=== PATIENT | female | born 1960 | race Caucasian/White ===

== ENCOUNTER 2023-05-09 13:27 | Emergency (ER) | payer OTHER, SELFPAY ==
[2023-05-09 13:31] VITALS: BP 131/72; PULSE 83; RESP 16; TEMP 37; O2SAT 96; BMI 23.0
--- NOTE | 2023-05-09 13:43 | XR_ITS ---
The [address] [address] Patient Name: BARRIE LAWSON MRN: [id number] date: 1960 Sex: F Assigned Patient Location: ER Current Patient Location: ER Accession/Order Number: [id number] Exam Date: 05/09/2023 13:55 Report Date: 05/09/2023 14:17 At the request of: AUTUMN DENTON Procedure: XR knee CHARISSE 4V EXAM: XR knee CHARISSE 4V HISTORY: pain anterior knees patient fell recently COMPARISON: None TECHNIQUE: 4 views of the right knee were obtained. FINDINGS: No definite acute fracture or dislocation. Mild posterior patellar spurring. No evidence of sizable suprapatellar joint effusion. Soft tissues are grossly within normal limits. 4 views of the left knee were obtained. No definite acute fracture or dislocation. Mild posterior patellar spurring. Small calcifications noted posteriorly at the level of the joint space likely degenerative or vascular nature. No evidence of sizable suprapatellar joint effusion. Soft tissues are grossly within normal limits. XR/XR knee CHARISSE 4V IMPRESSION: Bilateral knee study demonstrates mild degenerative changes as described. Follow-up as needed. Electronically authenticated by: PRUDENCIO CRUZ Date: 05/09/2023 14:17
[2023-05-09 13:47] VITALS: O2SAT 98
--- NOTE | 2023-05-09 13:47 | ED_ITS ---
Documented by User: JROGE Winkler 05/09/23 14:28 HPI - Extremity Injury (Lower) General Chief Complaint: Extremity Injury, Lower Stated Complaint: LOWER EXTREMITY INJURY KNEES Time Seen by Provider: 05/09/23 13:28 Source: patient Mode of arrival: walk-in Limitations: no limitations History of Present Illness HPI Narrative: patient is a 63-year-old female unsure of last tetanus presents to the Emergency Room with concerns of bilateral anterior knee pain. Patient walking yesterday tripped near a curb striking both knees, slight twisting. 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 Patient notes pain with ambulation but tolerable. Patient denies any head or neck injury, denies pain to her feet or ankles. Place: Reports street/outdoors Severity: moderate Relieving factors: Reports cold therapy Exacerbating factors: Reports weight bearing and movement Context: Reports fall and direct blow Associated symptoms: Reports swelling; Denies numbness or tingling Treatments prior to arrival: Reports cold therapy Related Data Home Medications Medication Instructions Recorded Confirmed valsartan 40 mg tablet 40 mg PO DAILY 05/09/23 05/09/23 Allergies Allergy/AdvReac Type Severity Reaction Status Date / Time carvedilol [From Coreg] Allergy Severe Congested Verified 05/09/23 13:35 Review of Systems ROS Constitutional Denies: fever or chills Eyes Denies: change in vision Ears, nose, mouth, and throat Denies: throat pain Cardiovascular Denies: chest pain Respiratory Denies: shortness of breath Gastrointestinal Denies: abdominal pain or nausea Musculoskeletal Denies: neck pain Integumentary/Breast Denies: rash Neurological Denies: headache PFSH PFSH Social History Smoking status: Heavy tobacco smoker Exam Narrative Exam Narrative: Vital signs reviewed and nurse's notes. The patient is not hypoxic. General: Alert, no acute distress, patient resting comfortably Skin: warm, intact, no pallor noted, quarter size abrasion left anterior knee just below the patella. No active bleeding Head: Normocephalic, atraumatic Eye: Normal conjunctiva, no exudates Respiratory: No acute distress, lungs CTA Musculoskeletal: No evidence of deformity to the right or left knee. There is mild symmetric anterior swelling. point tender right knee medial femoral condyle, no evidence of prepatellar bursitis.There is no ecchymosis. No erythema or warmth noted. DP and PT pulses are intact 2+. Normal sensation, normal capillary refill less than 2 seconds. There is no cyanosis or mottling noted. The patient has tenderness to anterior medial aspect right knee.localized prepatellar tenderness left knee. The patient has no laxity with varus or valgus stressing. The patient has negative anterior drawer and Francia testing. The patient was able to flex and extend although with pain. Patient was able to extend leg off the cart without difficulty. No tenderness noted to the 5th MT, midfoot, ankle or proximal fibular area. There is no pain with calcaneal squeeze, achilles tendon is intact and no defect is palpated. The patient has no pelvic instability. The patient has no shortening or rotation noted to the bilateral lower extremities. Neurological: alert and orient x4, normal sensory and motor observed. Psychiatric: Cooperative Constitutional Vital Signs, click to edit/add: Last Vital Signs Temp 98.6 F 05/09/23 13:31 Pulse 83 05/09/23 13:31 Resp 16 05/09/23 13:31 BP 131/72 05/09/23 13:31 Pulse Ox 98 05/09/23 13:47 O2 Del Method Room Air 05/09/23 13:47 Course Vital Signs Vital signs: Vital Signs Temperature 98.6 F 05/09/23 13:31 Pulse Rate 83 05/09/23 13:31 Respiratory Rate 16 05/09/23 13:31 Blood Pressure 131/72 05/09/23 13:31 Pulse Oximetry 96 05/09/23 13:31 Temperature 98.6 F 05/09/23 13:31 Pulse Rate 83 05/09/23 13:31 Respiratory Rate 16 05/09/23 13:31 Blood Pressure 131/72 05/09/23 13:31 Pulse Oximetry 98 05/09/23 13:47 Oxygen Delivery Method Room Air 05/09/23 13:47 MDM - Extremity Injury (Lower) MDM Narrative Medical decision making narrative: tetanus updated, bacitracin applied to left knee abrasion. Patient likely bone contusion, x-rays performed to rule out fracture given mechanism of injury. No significant joint effusion and internal derangement not suspected. Discussed need to follow-up with orthopedics if symptoms do not improve.given patient's requirement to stand, we will give her 2-3 days off work to allow for ice and elevation.recommended good soap and water for abrasion, topical bacitracin pending scab formation The patient is to followup with primary care physician/ ortho in next 2-3 days or to return to the emergency department should any of the signs or symptoms worsen or new symptoms develop. Patient had questions answered. The patient agrees with the following Diagnosis and Treatment plan and the patient will be discharged home. Imaging Data knee xray bilateral: Radiologist's impression: AUTUMN DENTON Procedure: XR knee CHARISSE 4V EXAM: XR knee CHARISSE 4V HISTORY: pain anterior knees patient fell recently COMPARISON: None TECHNIQUE: 4 views of the right knee were obtained. FINDINGS: No definite acute fracture or dislocation. Mild posterior patellar spurring. No evidence of sizable suprapatellar joint effusion. Soft tissues are grossly within normal limits. 4 views of the left knee were obtained. No definite acute fracture or dislocation. Mild posterior patellar spurring. Small calcifications noted posteriorly at the level of the joint space likely degenerative or vascular nature. No evidence of sizable suprapatellar joint effusion. Soft tissues are grossly within normal limits. IMPRESSION: Bilateral knee study demonstrates mild degenerative changes as described. Follow-up as needed. Electronically authenticated by: PRUDENCIO CRUZ Date: 05/09/2023 14:17 Discharge Plan Discharge Chief Complaint: Extremity Injury, Lower Clinical Impression: Contusion of knee, left, Contusion of knee, right, Abrasion of knee, left Patient Disposition: Home, Self-Care Time of Disposition Decision: 13:53 Condition: Good Prescriptions / Home Meds: No Action valsartan 40 mg tablet 40 mg PO DAILY Instructions: Contusion in Adults (ED), Abrasion (ED) Stand Alone Forms: Portal Instructions Referrals: BRENDA GARIBAY MD [Primary Care Provider] - 1 week Darius Gregory MD [Physician] - 1 week Discharge Date/Time: 05/09/23 14:32 Documented by User: Nilson Parikh MD 05/09/23 15:27 HPI - Extremity Injury (Lower) General Chief Complaint: Extremity Injury, Lower Stated Complaint: LOWER EXTREMITY INJURY KNEES Time Seen by Provider: 05/09/23 13:28 Related Data Home Medications Medication Instructions Recorded Confirmed valsartan 40 mg tablet 40 mg PO DAILY 05/09/23 05/09/23 Allergies Allergy/AdvReac Type Severity Reaction Status Date / Time carvedilol [From Coreg] Allergy Severe Congested Verified 05/09/23 13:35 PFSH PFSH Social History Smoking status: Heavy tobacco smoker Exam Constitutional Vital Signs, click to edit/add: Last Vital Signs Temp 98.6 F 05/09/23 13:31 Pulse 83 05/09/23 13:31 Resp 16 05/09/23 13:31 BP 131/72 05/09/23 13:31 Pulse Ox 98 05/09/23 13:47 O2 Del Method Room Air 05/09/23 13:47 Course Vital Signs Vital signs: Vital Signs Temperature 98.6 F 05/09/23 13:31 Pulse Rate 83 05/09/23 13:31 Respiratory Rate 16 05/09/23 13:31 Blood Pressure 131/72 05/09/23 13:31 Pulse Oximetry 96 05/09/23 13:31 Temperature 98.6 F 05/09/23 13:31 Pulse Rate 83 05/09/23 13:31 Respiratory Rate 16 05/09/23 13:31 Blood Pressure 131/72 05/09/23 13:31 Pulse Oximetry 98 05/09/23 13:47 Oxygen Delivery Method Room Air 05/09/23 13:47 MDM - Extremity Injury (Lower) MDM Narrative Medical decision making narrative: tetanus updated, bacitracin applied to left knee abrasion. Patient likely bone contusion, x-rays performed to rule out fracture given mechanism of injury. No significant joint effusion and internal derangement not suspected. Discussed need to follow-up with orthopedics if symptoms do not improve.given patient's requirement to stand, we will give her 2-3 days off work to allow for ice and elevation.recommended good soap and water for abrasion, topical bacitracin pending scab formation The patient is to followup with primary care physician/ ortho in next 2-3 days or to return to the emergency department should any of the signs or symptoms worsen or new symptoms develop. Patient had questions answered. The patient agrees with the following Diagnosis and Treatment plan and the patient will be discharged home. I, Dr Parikh, have reviewed the above progress note and course of action in the ER; agree with the above. I have personally seen and evaluated this patient, gone over history and physical, and discussed disposition and treatment plan with the patient. Discharge Plan Discharge Chief Complaint: Extremity Injury, Lower Clinical Impression: Contusion of knee, left, Contusion of knee, right, Abrasion of knee, left Patient Disposition: Home, Self-Care Time of Disposition Decision: 13:53 Condition: Good Prescriptions / Home Meds: No Action valsartan 40 mg tablet 40 mg PO DAILY Instructions: Contusion in Adults (ED), Abrasion (ED) Stand Alone Forms: Portal Instructions Referrals: BRENDA GARIBAY MD [Primary Care Provider] - 1 week Darius Gregory MD [Physician] - 1 week Discharge Date/Time: 05/09/23 14:32
[2023-05-09] MEDS: ADACEL DIPH,PERTUSS(ACELL),TET VAC/PF 0.5 ML ADULT SYRINGE IM (14:06)
[2023-05-09] MEDS: BACITRACIN OINTMENT 28.4 GM TUBE 1 APPLIC TOPICAL (14:06)
== END 2023-05-09 14:32 | disposition home or self-care (01) ==
PROVIDERS: Emergency Provider Emergency Medicine; PCP Internal Medicine
DX: S80.02XA Contusion of left knee, initial encounter (principal); S80.01XA Contusion of right knee, initial encounter; S80.212A Abrasion, left knee, initial encounter; W01.198A Fall on same level from slipping, tripping and stumbling with subsequent striking against other object, initial encounter; Z79.899 Other long term (current) drug therapy; F17.210 Nicotine dependence, cigarettes, uncomplicated; Z23 Encounter for immunization
CPT/HCPCS: 73564; 90471; 90715; 99284

== ENCOUNTER 2023-06-05 15:29 | Outpatient (OUT) | payer OTHER, SELFPAY ==
--- OUTSIDE RECORDS SUMMARY | 2023-06-05 15:34 | XMS_ITS | CCD ---
Author Name Unknown Address [address] [place] [address] Organization [facility] Care Team Providers Care Coconut Cooker Name Role Phone Pascual Garibay Jr. Primary Care Provider Jamila Acosta DO Unavailable [place], DR GUTIERREZ Admitting Unavailable VALONE, DR GUTIERREZ Attending Unavailable VALONE, DR GUTIERREZ Primary Care Unavailable VALONE, DR GUTIERREZ Consulting Unavailable WEST, DR LINDA Davis Consulting Unavailable Anderson, DR Mccoy Consulting Unavailable Pascual Garibay Jr. Primary Care Provider Jamila Acosta DO Unavailable Cody Reynaga MD Unavailable CODY REYNAGA Attending Unavailable PASCUAL GARIBAY JR Primary [facility] Unavail able KATHRYN MERCADO Attending Unavailable CODY REYNAGA Referring Unavailable PASCUAL GARIBAY JR [facility] Unavail able CODY REYNAGA Referring Unavailable PASCUAL GARIBAY JR Primary Care Unavail able CODY REYNAGA Referring Unavailable PASCUAL GARIBAY JR Primary [facility] Unavail able CODY REYNAGA Referring Unavailable PASCUAL GARIBAY JR Primary [facility] Unavail able PEDRO PABLO PARKER Referring Unavailable PASCUAL GARIBAY JR Primary Care Unavail able LETA MALAVE Attending Unavailable PASCUAL GARIBAY JR Primary Care Unavail able LETA MALAVE Attending Unavailable PASCUAL GARIBAY JR Primary [facility] Unavail able PEDRO PABLO PARKER Attending Unavailable PASCUAL GARIBAY JR Primary [facility] Unavail able PASCUAL GARIBAY JR Primary [facility] Unavail able LETA MALAVE Referring Unavailable Allergies Allergy Classification Reported Allergen(s) Allergy Type Date of Onset Reaction(s) Facility (10 sources) Cambodian cockroach allergenic extract; Translations: [KAZAKH COCKROACH ALLERGENIC EXTRACT] Drug Allergy 1 [facility] (10 sources) Cambodian elm pollen extract; Translations: [TREE POLLEN-KAZAKH ELM] Drug Allergy 1 Intolerance [facility] (10 sources) Apples; Translations: [APPLES] Food Allergy 1 [facility] (10 sources) burning peralta pollen extract; Translations: [WEED POLLEN-KOCHIA (FIREBUSH)] Drug Allergy 1 Intolerance [facility] (10 sources) Fish; Translations: [FISH CONTAINING PRODUCTS] Propensity to adverse reactions to drug 1 Other: See Comments [facility] (10 sources) House dust mite; Translations: [DUST MITES] Allergy to substance 1 [facility] (10 sources) Wheat preparation; Translations: [WHEAT] Drug Allergy 1 Other: See Comments [facility] (10 sources) Grass Pollen-[place] Blue, Standard; Translations: [GRASS POLLEN-[place] BLUE, STANDARD] Drug Allergy 1 Intolerance [facility] (10 sources) [place] Pollen-Western Ragweed; Translations: [WEED POLLEN-WESTERN RAGWEED] Drug Allergy 1 Other: See Comments [facility] Medications Current Medications Medication Drug Class(es) Dates Sig (Normalized) Sig (Original) pravastatin sodium 20 mg oral tablet (9 sources) HMG-CoA Reductase Inhibitor Start: 02-17-2023 End: 05-18-2023 take 2 tablets by mouth once daily at bedtime pravastatin (PRAVACHOL) 20 mg tablet Take 2 tablets by mouth daily at bedtime. 180 tablet 0 02/17/2023 05/18/2023 Active Start: 06-18-2020 End: 02-17-2023 pravastatin (PRAVACHOL) 20 m g tablet 20 mg daily at bedtime. 0 06/18/2020 02/17/2023 Discontinued Comment on above: 20 mg daily at bedti me. Take 2 tablets by mo uth daily at bedtime. Completed/Discontinued Medications Medication Drug Class(es) Dates Sig (Normalized) Sig (Original) ascorbic acid/collagen hydr (COLLAGEN PLUS VITAMIN C ORAL) (8 sources) ascorbic acid/collagen hydr (COLLAGEN PLUS VITAMIN C ORAL) once daily. 0 Active Comment on above: once daily. azelastine hydrochloride 0.137 mg/actuat metered dose nasal spray (8 sources) Histamine-1 Receptor Antagonist azelastine (ASTELIN) 0.1% nasal spray once daily. 0 Active Comment on above: once daily. 24 hr buPROPion hydrochloride 150 mg extended release oral tablet (2 sources) Aminoketone Start: 12-22-2022 End: 02-17-2023 buPROPion XL (WELLBUTRIN XL) 150 mg 24 hr tablet C,E,zinc,copper 11/uncqo1z/lut (OCUVITE ADULT 50 PLUS ORAL) (8 sources) C,E,zinc,copper 11/yqlcl0z/lut (OCUVITE ADULT 50 PLUS ORAL) once daily. 0 Active Comment on above: once daily. CALCIUM CITRATE-VITAMIN D3 ORAL (8 sources) CALCIUM CITRATE-VITAMIN D3 ORAL once daily. 0 Active Comment on above: once daily. chrom fadia/brindal abebe (GARCINIA CAMBOGIA ORAL) (3 sources) End: 02-17-2023 chrom fadia/brindal abebe (GARCINIA CAMBOGIA ORAL) Take by mouth once daily. 0 02/17/2023 Discontinued chrom fadia/brind al abebe (GARCINIA CAMBOGIA ORAL) Take by mouth once daily. 0 Active Comment on above: Take by mouth once d aily. empagliflozin 25 mg oral tablet (2 sources) Sodium-Glucose Cotransporter 2 Inhibitor Start: 09-27-19 End: 02-18-20 take 1 tablet by mouth once daily in the morning JARDIANCE 25 mg tablet Take 25 mg by mouth every morning. 0 09/26/2022 02/17/2023 Discontinued Comment on above: Take 25 mg by mouth every morning. famotidine 20 mg oral tablet (8 sources) Histamine-2 Receptor Antagonist take 1 tablet by mouth every twelve hours as needed famotidine (PEPCID) 20 mg tablet Take 20 mg by mouth twice daily as needed. 0 Active take 1 tablet by mouth once don y famotidine (PEPCID) 20 mg tablet Take 20 mg by mouth once daily. 0 Active Comment on above: Take 20 mg by mouth once daily. Take 20 mg by mouth twice daily as needed. fluconazole 100 mg oral tablet (2 sources) Azole Antifungal Start: 09-27-19 End: 02-18-20 take 1 tablet by mouth every week fluconazole (DIFLUCAN) 100 mg tablet Take 100 mg by mouth one time a week. 0 09/26/2022 02/17/2023 Discontinued Comment on above: Take 100 mg by mouth one time a week. fluticasone (8 sources) Corticosteroid FLUTICASONE PROPIONATE NASAL as needed. 0 Active Comment on above: as needed. ibuprofen 800 mg oral tablet (8 sources) Nonsteroidal Anti-inflammatory Drug take 1 tablet by mouth every eight hours as needed ibuprofen (MOTRIN) 800 mg tablet Take 800 mg by mouth three times daily as needed. 0 Active Comment on above: Take 800 mg by mouth three times daily as needed. krill oil (3 sources) End: 02-18-20 23 ebots-ufors-2-dha-ep a-lipids (KRILL OIL) 860-25-62-50 mg cap once daily. 0 02/17/2023 Discontinued klioh-ypbyc-0-dh s-yhr-lcsxhq (KRILL OIL) 998-61-33-50 mg cap once daily. 0 Active Comment on above: once daily. Multivitamin capsule (8 sources) take 1 capsule by mouth once daily Multivitamin capsule Take 1 capsule by mouth once daily. 0 Active Comment on above: Take 1 capsule by [facility] once daily. olopatadine 2 mg/ml ophthalmic solution (8 sources) Histamine-1 Receptor Inhibitor Start: 1 take 1 drop(s) into the eye(s) once daily Olopatadine 0.2 % drop Use 1 Drop in both eyes once daily. 0 06/21/2020 Active Start: 06-21-2020 Olopatadine 0. 2 % drop once daily. 0 06/21/2020 Active Comment on above: once daily. Use 1 Drop in both e yes once daily. ubiquinol (8 sources) COQ10, UBIQUINOL , ORAL once daily. 0 Active Comment on above: once daily. valsartan 40 mg oral tablet (7 sources) Angiotensin 2 Receptor Kellen Start: 2 End: 2 take 1 tablet by mouth once daily valsartan (DIOVAN) 40 mg tablet Take 1 tablet by mouth once daily. 90 tablet 3 01/04/2022 Active Comment on above: Take 1 tablet by [facility] once daily. vitamin e 268 mg oral capsule (3 sources) End: Vitamin E, dl, acetate, (VITAMIN E) 400 unit capsule once daily. 0 02/17/2023 Discontinued Vitamin E, dl, a cetate, (VITAMIN E) 400 unit capsule once daily. 0 Active Comment on above: once daily. Problems Active Problems Problem Classification Problem Date Documented Da te Episodic/Chronic Acquired foot deformities (1 source) Acquired right hallux valgus; Translations: [Hallux valgus (acquired), right foot] 03-03-2023 Chronic Aortic; peripheral; and visceral artery aneurysms (10 sources) Aneurysm of infrarenal abdominal aorta ; Translations: [Infrarenal abdominal aortic aneurysm (AAA) without rupture (HCC)] Onset: 12-30-2022 01-09-2023 Chronic Chronic obstructive pulmonary disease and bronchiectasis (1 source) Chronic obstructive lung disease; Translations: [Chronic obstructive pulmonary disease, unspecified] 02-17-2023 Chronic Congestive heart failure; nonhypertensive (8 sources) Chronic diastolic heart failure; Translations: [Chronic diastolic (congestive) heart failure] Onset: 07-25-2020 07-25-2020 Chronic Disorders of lipid metabolism (9 sources) Hyperlipidemia; Translations: [Other hyperlipidemia] Onset: 07-07-2020 07-07-2020 Chronic Essential hypertension (9 sources) Essential hypertension; Translations: [Essential (primary) hypertension] Onset: 07-07-2020 07-07-2020 Chronic Heart valve disorders (4 sources) Mitral valve disorder; Translations: [Rheumatic mitral valve disease, unspecified] Onset: 02-17-2023 01-09-2023 Chronic Joint disorders and dislocations; trauma-related (1 source) Dislocation of toe joint; Translations: [Unspecified dislocation of right toe(s), initial encounter] 03-03-2023 Episodic Other circulatory disease (1 source) Disorder of artery; Translations: [Disorder of arteries and arterioles, unspecified] 01-09-2023 Chronic Other circulatory disease (1 source) Disorder of arteries and arterioles, unspecified; Translations: [Disorder of artery or arteriole (HCC)] Onset: 02-17-2023 Chronic Other congenital anomalies (1 source) Porokeratosis; Translations: [Other specified congenital malformations of skin] 03-03-2023 Chronic Other congenital anomalies (1 source) Metatarsus adductus; Translations: [Congenital metatarsus adductus, unspecified foot] 03-03-2023 Chronic Other connective tissue disease (1 source) Plantar fascial fibromatosis; Translations: [Plantar fascial fibromatosis] 03-03-2023 Episodic Other screening for suspected conditions (not mental disorders or infectious disease) (4 sources) Encounter for screening mammogram for malignant neoplasm of breast; Translations: [ENC SCR MAMMO MALIG NEOPLASM BREAST] Onset: 01-21-2022 Episodic Residual codes; unclassified (1 source) Family history of malignant neoplasm of trachea, bronchus and lung; Translations: [FAM HX MALIG NEOPLSM TRACH BRON LNG] Onset: 01-22-2022 Episodic Residual codes; unclassified (1 source) Pain; Translations: [Pain, unspecified] 03-03-2023 Episodic Residual codes; unclassified (1 source) History of operative procedure on foot; Translations: [Other specified postprocedural states] 03-03-2023 Episodic Residual codes; unclassified (1 source) Ex-smoker for less than 1 year; Translations: [Other specified health status] 02-17-2023 Episodic Residual codes; unclassified (1 source) Pain, unspecified; Translations: [Pain] Onset: 03-03-2023 Episodic Substance-related disorders (2 sources) Nicotine dependence, cigarettes, uncomplicated; Translations: [Nicotine dependence] Onset: 01-22-2022 02-17-2023 Chronic Unclassified (1 source) Infrarenal abdominal aortic aneurysm (AAA) without rupture (HCC); Translations: [Infrarenal abdominal aortic aneurysm (AAA) without rupture (HCC)] Onset: 12-30-2022 Past or Other Problems Problem Classification Problem Date Documented Da te Episodic/Chronic Other infections; including parasitic (8 sources) Personal history of other infectious and parasitic diseases; Translations: [History of COVID-19] Onset: 11-14-2020 11-14-2020 Episodic Residual codes; unclassified (8 sources) Tobacco user; Translations: [Tobacco use] Onset: 07-07-2020 07-07-2020 Episodic Results Test Name Value Interpretation Reference Range Facility CTA ABD/PELV W IVCONon 04-03 CTA ABD/PELV W IVCON * * *Final Report* * * DATE OF EXAM: Apr 03 2023 11:31AM [facility] 0311 - CTA ABD/PELV W IVCON / PROCEDURE REASON: Encounter for other preprocedural examination * * * * Physician Interpretation * * * * EXAM: CT ANGIOGRAM OF THE CHEST, ABDOMEN AND PELVIS History: Preop for AAA Technique: Non-gated spiral imaging of the chest, abdomen, and pelvis following the IV administration of contrast material. A low-osmolar contrast agent was used (120 cc of Omnipaque 350). For optimization of anatomic evaluation, multiplanar reconstruction, maximum intensity projections, and advanced 3-D off-line postprocessing were performed on a dedicated stand-alone workstation with images sent to PACS. CT Dose-Length Product (DLP): 690.3 (accession [id number]), 690.30 (accession [id number]) mGycm CT Dose Reduction Employed: Automated exposure control Comparison: CT chest 02/17/2023 RESULT: Potential study limitations: None. VASCULAR FINDINGS CHEST: The main pulmonary artery is unremarkable. There is no significant or central pulmonary embolism noted. The ascending aorta is normal in caliber. There is again fusiform dilation of the descending thoracic aorta which measures up to 3.5 cm just proximal to the diaphragmatic hiatus. Mild predominantly noncalcified plaque throughout the thoracic aorta. There is no acute aortic pathology, such as dissection, intramural hematoma, or contained rupture. The arch vessel branching pattern is bovine. All of the arch branch vessels appear widely patent in their proximal portions. ABDOMEN AND PELVIS: There is an infrarenal AAA measuring 4.7 cm transverse diameter. The aneurysm measures about 8.2 cm craniocaudal dimension. The aneurysm begins about 1 cm above the lowest renal artery on the right and about 1.6 cm below the lowest renal artery on the left. Aneurysm sac contains circumferential mural thrombus measuring up to 1.3 cm in thickness. This mildly narrows the aortic lumen to 1.9 cm transverse diameter. The right common iliac measures 0.8 cm. The left common iliac measures 1.1 cm mildly ectatic. Bilateral internal iliac arteries are patent with mild atherosclerosis. The bilateral external iliac arteries are patent and normal in caliber measuring by 0.6 cm diameter bilaterally. There is mild atherosclerosis in the common femoral arteries which are normal in diameter. Celiac artery is patent. Superior mesenteric artery is patent. Inferior mesenteric artery is patent. There are two right renal arteries. Right renal arteries are patent. There are two left renal arteries. Left renal arteries are patent. NONVASCULAR FINDINGS CHEST: Lines, tubes, and devices: None. Lung parenchyma and airways: Moderate emphysema. Dependent atelectasis. A few tiny pulmonary nodules in the right middle lobe. Pleural space: No pleural effusion. Lower neck, lymph nodes, and mediastinum: The imaged thyroid gland is normal. No lymphadenopathy in the supraclavicular, axillary, mediastinal, or hilar regions. Heart size is within normal limits. Bones and soft tissues: No acute osseous findings. Degenerative changes. ABDOMEN AND PELVIS: Liver: No mass. Biliary: No bile duct dilation. Cholecystectomy. Spleen: No mass. No splenomegaly. Pancreas: No mass or duct dilation. Adrenals: No mass. Kidneys: No hydronephrosis. GI tract: No dilation or wall thickening. Lymph nodes: No abdominal or pelvic lymphadenopathy. Mesentery/Peritoneum: No ascites or mass. Retroperitoneum: No mass. Pelvis: No mass, ascites or fluid collection. Bones/Soft Tissues: No acute osseous findings. Degenerative changes. IMPRESSION: 4.7 cm AAA. Aneurysm sac involves the lowest renal artery on the right. Two renal arteries bilaterally. Contact Center Team Lead: PSCB Transcribe Date/Time: Apr 09 2023 2:22P Dictated by : NEIDA MCKEON MD This examination was interpreted and the report reviewed and electronically signed by: NEIDA MCKEON MD on Apr 09 2023 3:10PM EST [id number] N Normal [facility] CTA CHEST (NONGATED) W IVCON on 04-03-2023 CTA CHEST (NONGATED) W IVCON * * *Final Report* * * DATE OF EXAM: Apr 03 2023 11:31AM [facility] 0123 - CTA CHEST (NONGATED) W IVCON / PROCEDURE REASON: Encounter for other preprocedural examination * * * * Physician Interpretation * * * * EXAM: CT ANGIOGRAM OF THE CHEST, ABDOMEN AND PELVIS History: Preop for AAA Technique: Non-gated spiral imaging of the chest, abdomen, and pelvis following the IV administration of contrast material. A low-osmolar contrast agent was used (120 cc of Omnipaque 350). For optimization of anatomic evaluation, multiplanar reconstruction, maximum intensity projections, and advanced 3-D off-line postprocessing were performed on a dedicated stand-alone workstation with images sent to PACS. CT Dose-Length Product (DLP): 690.3 (accession [id number]), 690.30 (accession [id number]) mGycm CT Dose Reduction Employed: Automated exposure control Comparison: CT chest 02/17/2023 RESULT: Potential study limitations: None. VASCULAR FINDINGS CHEST: The main pulmonary artery is unremarkable. There is no significant or central pulmonary embolism noted. The ascending aorta is normal in caliber. There is again fusiform dilation of the descending thoracic aorta which measures up to 3.5 cm just proximal to the diaphragmatic hiatus. Mild predominantly noncalcified plaque throughout the thoracic aorta. There is no acute aortic pathology, such as dissection, intramural hematoma, or contained rupture. The arch vessel branching pattern is bovine. All of the arch branch vessels appear widely patent in their proximal portions. ABDOMEN AND PELVIS: There is an infrarenal AAA measuring 4.7 cm transverse diameter. The aneurysm measures about 8.2 cm craniocaudal dimension. The aneurysm begins about 1 cm above the lowest renal artery on the right and about 1.6 cm below the lowest renal artery on the left. Aneurysm sac contains circumferential mural thrombus measuring up to 1.3 cm in thickness. This mildly narrows the aortic lumen to 1.9 cm transverse diameter. The right common iliac measures 0.8 cm. The left common iliac measures 1.1 cm mildly ectatic. Bilateral internal iliac arteries are patent with mild atherosclerosis. The bilateral external iliac arteries are patent and normal in caliber measuring by 0.6 cm diameter bilaterally. There is mild atherosclerosis in the common femoral arteries which are normal in diameter. Celiac artery is patent. Superior mesenteric artery is patent. Inferior mesenteric artery is patent. There are two right renal arteries. Right renal arteries are patent. There are two left renal arteries. Left renal arteries are patent. NONVASCULAR FINDINGS CHEST: Lines, tubes, and devices: None. Lung parenchyma and airways: Moderate emphysema. Dependent atelectasis. A few tiny pulmonary nodules in the right middle lobe. Pleural space: No pleural effusion. Lower neck, lymph nodes, and mediastinum: The imaged thyroid gland is normal. No lymphadenopathy in the supraclavicular, axillary, mediastinal, or hilar regions. Heart size is within normal limits. Bones and soft tissues: No acute osseous findings. Degenerative changes. ABDOMEN AND PELVIS: Liver: No mass. Biliary: No bile duct dilation. Cholecystectomy. Spleen: No mass. No splenomegaly. Pancreas: No mass or duct dilation. Adrenals: No mass. Kidneys: No hydronephrosis. GI tract: No dilation or wall thickening. Lymph nodes: No abdominal or pelvic lymphadenopathy. Mesentery/Peritoneum: No ascites or mass. Retroperitoneum: No mass. Pelvis: No mass, ascites or fluid collection. Bones/Soft Tissues: No acute osseous findings. Degenerative changes. IMPRESSION: 4.7 cm AAA. Aneurysm sac involves the lowest renal artery on the right. Two renal arteries bilaterally. Contact Center Team Lead: PSCB Transcribe Date/Time: Apr 09 2023 2:22P Dictated by : NEIDA MCKEON MD This examination was interpreted and the report reviewed and electronically signed by: NEIDA MCKEON MD on Apr 09 2023 3:10PM EST [id number] N Normal [facility] CNOVon 03-27-2023 OV Office Visit ([facility] ) BARRIE LAWSON ([id number]) 1960 F Date Time Provider Department 03/27/23 10:15 AM LETA MALAVE [facility] During your visit today, we recorded the following information about you: Pulse Blood pressure 63/minute 149/90 Leta Malave MD 03/27/2023 12:07 PM Signed [facility] DEPARTMENT OF VASCULAR SURGERY OUTPATIENT VISIT TYPE CONSULTATION PRIMARY CARE PHYSICIAN: Pascual Garibay Jr, DO REFERRING PROVIDER: SELF Consult requested for an opinion regarding the evaluation and treatment of the above. My final impression and recommendations will be communicated back to the requesting physician by way of the shared medical record or letter via US mail. CHIEF COMPLAINT AAA HISTORY OF PRESENT ILLNESS: Barrie Lawson is a 62 year old female presenting with concern for an abdominal aortic aneurysm. Ms. Lawsno has known about the presence of an abdominal aortic aneurysm since last year when she had an ultrasound of the abdominal aorta that showed an aneurysm of approximately 4cm. We do not have that report readily available. She had a repeat ultrasound in 04/2022 which reported the followin.5cm x 3.8cm infrarenal aneurysm . She has not had any dedicated cross-sectional imaging of the abdominal aorta but had a chest CTA which showed no descending thoracic aorta but dilation of the aorta near the diaphragm of 3.5cm. She denies any symptoms associated with her aneurysm including abdominal pain, back pain, flank pain, or referred pain into her groin. She is a former smoker but currently vapes. She denies any claudication, rest pain, or tissue loss. She has no anginal symptoms with exertion and denies SOB while walking up 2 flights of stairs. Imaging studies: I have personally viewed the following images/data: 02/17/23: CTA Chest 3.5cm dilation of the descending thoracic aorta near the diaphragmatic hiatus Tobacco Use: .25 packs/day, for 42 years. Quit 11/23/2022. Types: Cigarettes PAST MEDICAL HISTORY Diagnosis Date AAA (abdominal aortic aneurysm) (HCC) Congestive heart failure (HCC) COPD (chronic obstructive pulmonary disease) (HCC) Diverticulosis Dyslipidemia 2019 Engages in vaping Family history of early CAD HTN (hypertension) 2019 PAST SURGICAL HISTORY Procedure Laterality Date APPENDECTOMY REMOVAL GALLBLADDER REMV CATARACT EXTRACAP,INSERT LENS Bilateral SURGERY ADD Right bunion on R foot TONSILLECTOMY HX TOTAL ABDOM HYSTERECTOMY partial FAMILY HISTORY Problem Relation Age of Onset Hypertension Mother Hyperlipidemia Mother other (kidney cancer) Mother Diabetes Mother other (Myocardial infarction) Mother Cancer Father lung No Known Problems Sister other (diverticulosis) Sister No Known Problems Sister No Known Problems Sister Systemic Lupus Erythematosus Sister Hypertension Brother Neuropathy Brother Hyperlipidemia Brother other (testicutlar cancer) Brother No Known Problems Brother Cancer Brother testicular cancer Social History Tobacco Use Smoking status: Former Packs/day: 0.25 Years: 42.00 Additional pack years: 0.00 Total pack years: 10.50 Types: Cigarettes Quit date: 11/2022 Years since quittin.3 Smokeless tobacco: Current Tobacco comments: currently vapes Vaping Use Vaping Use: current everyday user Substances: Nicotine Devices: Pre-filled or refillable cartridge, every 3 days Substance Use Topics Alcohol use: Not Currently Drug use: Never Current Outpatient Medications Medication Sig Dispense Refill pravastatin (PRAVACHOL) 20 mg tablet Take 2 tablets by mouth daily at bedtime. (Patient taking differently: Take 20 mg by mouth daily at bedtime.) 180 tablet 0 iv contrast (will be provided with radiology test) For CTA CHEST (NONGATED) W IVCON and CTA ABD/PEL W IVCON orders. No IV access, insert saline lock prior to the sedation, infusion, injection for imaging exam. Discontinue saline lock post exam. If Pt. has a central line or IVAD, may access for administration according to line specific nursing protocol. Once exam is complete flush line and de-access according to line specific nursing protocol in the CT contrast administration guidelines link. 1 Each 0 valsartan (DIOVAN) 40 mg tablet Take 1 tablet by mouth once daily. 90 tablet 3 azelastine (ASTELIN) 0.1% nasal spray once daily. ascorbic acid/collagen hydr (COLLAGEN PLUS VITAMIN C ORAL) once daily. C,E,zinc,copper 11/nzbua5l/lut (OCUVITE ADULT 50 PLUS ORAL) once daily. CALCIUM CITRATE-VITAMIN D3 ORAL once daily. FLUTICASONE PROPIONATE NASAL as needed. Olopatadine 0.2 % drop Use 1 Drop in both eyes once daily. COQ10, UBIQUINOL, ORAL once daily. Multivitamin capsule Take 1 capsule by mouth once daily. famotidine (PEPCID) 20 mg tablet Take 20 mg by mouth twice daily as needed. ibuprofen (MO (more content not included)... [facility] Jacklyn 03-26-2023 CNPN Telephone ([facility]) BARRIE LAWSON ([id number]) 1960 F Date Time Provider Department 03/26/23 LETA MALAVE [facility] During your visit today, we recorded the following information about you: Rebecca Reed 03/26/2023 1:56 PM Signed Left message [phone] to reschedule appointment with Dr. Malave on 03/27/23. Allergies As of Date: 03/26/2023 Noted Allergy Reaction KAZAKH COCKROACH ALLERGENIC EXT*07/07/2020 4 - Hives APPLES 07/07/2020 4 - Hives DUST MITES 07/07/2020 4 - Hives FISH CONTAINING PRODUCTS 07/07/2020 14 - Other: See Comments Comments: Allergy to Cod/flounder/halibut GRASS POLLEN-RHONDA BLUE, STAND*07/07/2020 5 - Intolerance TREE POLLEN-KAZAKH ELM 07/07/2020 5 - Intolerance WEED POLLEN-KOCHIA (FIREBUSH) 07/07/2020 5 - Intolerance WEED POLLEN-WESTERN RAGWEED 07/07/2020 14 - Other: See Comments WHEAT 07/07/2020 14 - Other: See Comments Comments: Wheat Pollen And Whole Grain Date Reviewed: 03/03/2023 Reviewed by: Pedro Pablo Parker DPM - Fully Assessed Prescriptions as of 03/26/2023 - pravastatin (PRAVACHOL) 20 mg tablet Take 2 tablets by mouth daily at bedtime. - valsartan (DIOVAN) 40 mg tablet Take 1 tablet by mouth once daily. - azelastine (ASTELIN) 0.1% nasal spray once daily. - ascorbic acid/collagen hydr (COLLAGEN PLUS VITAMIN C ORAL) once daily. - C,E,zinc,copper 11/hyasp8j/lut (OCUVITE ADULT 50 PLUS ORAL) once daily. - CALCIUM CITRATE-VITAMIN D3 ORAL once daily. - FLUTICASONE PROPIONATE NASAL as needed. - Olopatadine 0.2 % drop Use 1 Drop in both eyes once daily. - COQ10, UBIQUINOL, ORAL once daily. - Multivitamin capsule Take 1 capsule by mouth once daily. - famotidine (PEPCID) 20 mg tablet Take 20 mg by mouth twice daily as needed. - ibuprofen (MOTRIN) 800 mg tablet Take 800 mg by mouth three times daily as needed. Problem List As Of Date 03/26/2023 Noted Resolved Essential hypertension [I10] 07/07/2020 Tobacco abuse [Z72.0] 07/07/2020 Other hyperlipidemia [E78.49] 07/07/2020 Chronic diastolic heart failure (HCC) [I50.32] 07/25/2020 History of COVID-19 [Z86.16] 11/14/2020 Infrarenal abdominal aortic aneurysm (AAA) with*12/30/2022 Encounter Status:Closed by [facility]BE[facility] 03[facility] BARRIE LAWSON ([id number]) 1960 F Date Time Provider Department 03/06/23 PEDRO PABLO PARKER [facility] During your visit today, we recorded the following information about you: Zane Gamez RN 03/06/2023 12:07 PM Signed Spoke to patient spouse regarding surgical scheduling for 1st MPJ arthrodesis surgery. Patient currently being worked up by vascular for AAA and will call back once cleared for foot surgery. All questions answered. Zane Gamez RN Allergies As of Date: 03/06/2023 Noted Allergy Reaction KAZAKH COCKROACH ALLERGENIC EXT*07/07/2020 4 - Hives APPLES 07/07/2020 4 - Hives DUST MITES 07/07/2020 4 - Hives FISH CONTAINING PRODUCTS 07/07/2020 14 - Other: See Comments Comments: Allergy to Cod/flounder/halibut GRASS POLLEN-RHONDA MOBLEY, STAND*07/07/2020 5 - Intolerance TREE POLLEN-KAZAKH ELM 07/07/2020 5 - Intolerance WEED POLLEN-KOCHIA (FIREBUSH) 07/07/2020 5 - Intolerance WEED POLLEN-WESTERN RAGWEED 07/07/2020 14 - Other: See Comments WHEAT 07/07/2020 14 - Other: See Comments Comments: Wheat Pollen And Whole Grain Date Reviewed: 03/03/2023 Reviewed by: Pedro Pablo Parker DPM - Fully Assessed Prescriptions as of 03/06/2023 - ascorbic acid/collagen hydr (COLLAGEN PLUS VITAMIN C ORAL) once daily. - azelastine (ASTELIN) 0.1% nasal spray once daily. - C,E,zinc,copper 11/mgoup3c/lut (OCUVITE ADULT 50 PLUS ORAL) once daily. - CALCIUM CITRATE-VITAMIN D3 ORAL once daily. - COQ10, UBIQUINOL, ORAL once daily. - famotidine (PEPCID) 20 mg tablet Take 20 mg by mouth twice daily as needed. - FLUTICASONE PROPIONATE NASAL as needed. - ibuprofen (MOTRIN) 800 mg tablet Take 800 mg by mouth three times daily as needed. - Multivitamin capsule Take 1 capsule by mouth once daily. - Olopatadine 0.2 % drop Use 1 Drop in both eyes once daily. - pravastatin (PRAVACHOL) 20 mg tablet Take 2 tablets by mouth daily at bedtime. - valsartan (DIOVAN) 40 mg tablet Take 1 tablet by mouth once daily. Problem List As Of Date 03/06/2023 Noted Resolved Essential hypertension [I10] 07/07/2020 Tobacco abuse [Z72.0] 07/07/2020 Other hyperlipidemia [E78.49] 07/07/2020 Chronic diastolic heart failure (HCC) [I50.32] 07/25/2020 History of COVID-19 [Z86.16] 11/14/2020 Infrarenal abdominal aortic aneurysm (AAA) with*12/30/2022 Encounter Status:Closed by ZANE GAMEZ on 03/06/23 [facility] CNOVon 03-03-2023 CNOV Office Visit (PODIMN ) BARRIE LAWSON ([id number]) 1960 F Date Time Provider Department 03/03/23 1:30 PM PEDRO PABLO PARKER During your visit today, we recorded the following information about you: Pedro Pablo Parker DPM 03/03/2023 5:51 PM Signed SERVICE DATE: March 03, 2023 PCP: Pascual Garibay Jr, DO Subjective Patient ID: Barrie is a 62 year old female. Chief Complaint: Patient presents with: Left Foot - New: Arch radiates to dorsal foot. Patient states mass at arch Right Foot - New, Pain: Right bunion pain with corn to bunion H/o right foot surgery x 2 in 90's Corns Pain Bunion PAIN EVALUATION 03/03/2023 1405 Pain Level: 5 Pain Location: Foot-Left Description: Aching Duration Amount of Time: 5 Duration Units: Years Frequency: Intermittent Comments: hx of inserts and right foot surgery in 's HPI Review of Systems Constitutional: Negative for fever. HENT: Negative for congestion. Respiratory: Negative for cough and shortness of breath. Cardiovascular: Negative for chest pain. Gastrointestinal: Negative for abdominal pain. Endocrine: Negative for diabetic associated symptoms. Skin: Negative for color change, pallor and rash. Neurological: Positive for numbness. Intermittent tingling to feet Hematological: Negative for blood/clotting disorder. Does not bruise/bleed easily. Musculoskeletal: Negative for joint swelling. ACTIVE PROBLEM LIST Essential Hypertension Tobacco Abuse Other Hyperlipidemia Chronic Diastolic Heart Failure (Hcc) History of Covid-19 Infrarenal Abdominal Aortic Aneurysm (Aaa) Without Rupture (Hcc) PAST MEDICAL HISTORY Diagnosis Date AAA (abdominal aortic aneurysm) (HCC) Congestive heart failure (HCC) COPD (chronic obstructive pulmonary disease) (HCC) Diverticulosis Dyslipidemia 2020 Engages in vaping Family history of early CAD HTN (hypertension) 2020 PAST SURGICAL HISTORY Procedure Laterality Date APPENDECTOMY REMOVAL GALLBLADDER REMV CATARACT EXTRACAP,INSERT LENS Bilateral SURGERY ADD Right bunion on R foot TONSILLECTOMY HX TOTAL ABDOM HYSTERECTOMY partial FAMILY HISTORY Problem Relation Age of Onset Hypertension Mother Hyperlipidemia Mother other (kidney cancer) Mother Diabetes Mother other (Myocardial infarction) Mother Cancer Father lung No Known Problems Sister other (diverticulosis) Sister No Known Problems Sister No Known Problems Sister Systemic Lupus Erythematosus Sister Hypertension Brother Neuropathy Brother Hyperlipidemia Brother other (testicutlar cancer) Brother No Known Problems Brother Cancer Brother testicular cancer Social History Tobacco Use Smoking status: Former Packs/day: 0.25 Years: 42.00 Additional pack years: 0.00 Total pack years: 10.50 Types: Cigarettes Quit date: 11/2022 Years since quittin.2 Smokeless tobacco: Current Tobacco comments: currently vapes Vaping Use Vaping Use: current everyday user Substances: Nicotine Devices: Pre-filled or refillable cartridge, every 3 days Substance Use Topics Alcohol use: Not Currently Drug use: Never ALLERGIES Allergen Reactions Cambodian Cockroach * Hives Apples Hives Dust Mites Hives Fish Containing Pro* Other: See Comments Allergy to Cod/flounder/halibut Grass Pollen-Kentuc* Intolerance Tree Pollen-Edwar* Intolerance [place] Pollen-Kochia * Intolerance [place] Pollen-Western* Other: See Comments Wheat Other: See Comments Wheat Pollen And Whole Grain MEDICATIONS: pravastatin (PRAVACHOL) 20 mg tablet Take 2 tablets by mouth daily at bedtime. valsartan (DIOVAN) 40 mg tablet Take 1 tablet by mouth once daily. azelastine (ASTELIN) 0.1% nasal spray once daily. ascorbic acid/collagen hydr (COLLAGEN PLUS VITAMIN C ORAL) once daily. C,E,zinc,copper 11/bzzjy0x/lut (OCUVITE ADULT 50 PLUS ORAL) once daily. CALCIUM CITRATE-VITAMIN D3 ORAL once daily. FLUTICASONE PROPIONATE NASAL as needed. Olopatadine 0.2 % drop Use 1 Drop in both eyes once daily. COQ10, UBIQUINOL, ORAL once daily. Multivitamin capsule Take 1 capsule by mouth once daily. famotidine (PEPCID) 20 mg tablet Take 20 mg by mouth twice daily as needed. ibuprofen (MOTRIN) 800 mg tablet Take 800 mg by mouth three times daily as needed. Allergies, medications, past surgical history, family history and past medical history were reviewed per this encounter. Physical Exam: There were no vitals taken for this visit. Patient is alert and oriented x 3 in NAD Patient's general mood is good. Eyes are without evidence of conjunctivitis or jaundice Respiration is normal and non-labored. Patient ambulated into the office treatment room. Vascular: Palpable Dorsalis Pedis and Posterior Tibial Pulses b/l Skin temperature warm to warm tibial tuberosity to the digits Neurological: Intact light touch/epicritic s (more content not included)... [facility] XR FOOT 3V AP/LAT/OBL BILon 03-03-2023 XR FOOT 3V AP/LAT/OBL CHARISSE * * *Final Report* * * DATE OF EXAM: Mar 03 2023 1:16PM AOX 5555 - XR FOOT 3V AP/LAT/OBL CHARISSE / PROCEDURE REASON: Pain * * * * Physician Interpretation * * * * HISTORY: Pain TECHNOLOGIST PROVIDED HISTORY (if applicable): bilateral foot pain. right big toe pain, left hindfoot pain TECHNIQUE: XR FOOT 3V AP/LAT/OBL CHARISSE RESULT: Bilateral three-view feet. RIGHT: Osteopenia and flexion deformities limit assessment.. Forefoot supination with hallux valgus. Flattening of the medial hallux metatarsal head is smoothly corticated and suggestive of prior bunionectomy. There is a question of lucency in the proximal phalanx throughout much of the shaft. This could represent prominent subchondral cysts/intraosseous ganglion but could also be related to postoperative change as may be seen after Silastic arthroplasty or from remote fracture deformity. Second and third hammertoes are present with mild degenerative changes at the interphalangeal joints. Additional degenerative changes are present in the midfoot particularly the fourth tarsometatarsal joint. Mature ossification at the peroneal tubercle consistent with a remote fracture without osseous union. No acute fracture is suspected. LEFT: Hallux valgus with bunion with contour deformity consistent with chronic erosion. No adjacent soft tissue swelling or calcification. Lateral subluxation of the sesamoids and mild degenerative changes at the metatarsophalangeal joint. Small dorsal midfoot osteophytes. Other joint spaces are preserved. Small plantar spur. IMPRESSION: LIMITED ASSESSMENT PARTICULARLY OF THE RIGHT GREAT TOE WITH NONSPECIFIC FINDINGS ABOVE. NO DEFINITE ACUTE FINDINGS. POSTOPERATIVE AND DEGENERATIVE CHANGES. CHRONIC EROSION OF THE LEFT BUNION LIKELY EITHER FROM AN ADJACENT GANGLION OR REMOTE GOUT. [facility] Transcribe Date/Time: Mar 03 2023 2:07P Dictated by : TASHA STATON MD This examination was interpreted and the report reviewed and electronically signed by: TASHA STATON MD on Mar 03 2023 2:12PM EST [id number] [facility] XR FOOT GENERAL 3V AP/LAT/OB L BILATERALon 03-03-2023 [facility] CNOVon 02-17-2023 CNOV Office Visit ([facility] ) BARRIE LAWSON ([id number]) 1960 F Date Time Provider Department 02/17/23 2:15 PM CODY REYNAGA TOHSMN During your visit today, we recorded the following information about you: Temperature Pulse Respiration Blood pressure 97.5 degrees 63/minute 14/minute 133/80 Weight Height 58.5 kg 1.6 m Cody Reynaga MD 02/24/2023 9:19 AM Signed [facility] DEPARTMENT OF CARDIAC SURGERY OUTPATIENT VISIT DATE OUTPATIENT VISIT PCP: Pascual Garibay Jr, DO ([facility]) [address] [address] Referring Physician: SELF Patient Type: New Visit to Determine Surgery: Yes HPI: Ms. Barrie Lawson is a 62 year old female seen regarding candidacy for cardiac surgery. She is currently asymptomatic Comorbidities include PAST MEDICAL HISTORY Diagnosis Date AAA (abdominal aortic aneurysm) (HCC) Congestive heart failure (HCC) COPD (chronic obstructive pulmonary disease) (HCC) Diverticulosis Dyslipidemia 2019 Engages in vaping Family history of early CAD HTN (hypertension) 2019 I have personally reviewed and analyzed all records that pertain to the patient's prior course in addition to the following studies: CT scan and TTE. Last CT Result Conclusion CTA CHEST (GATED) W IVCON Exam End: 02/17/2023 11:12 AM (Final result) Impression: IMPRESSION: 1. Dilation of the distal descending thoracic aorta just proximal to the diaphragmatic hiatus, measuring 3.5 cm in diameter. The remainder of the thoracic aorta is normal in course and caliber. 2. Moderate upper lobe predominant centrilobular and paraseptal emphysema. 3. Small (< 6 mm) pulmonary nodules as described. Incidental Finding: Follow-up Acuity: Incidental Finding: Solid: <6 mm (solitary or multiple) Routing Code: N/A Recommendation: No imaging follow-up is recommended Time Frame: N/A Comments: If there are risk factors for lung malignancy, a follow-up chest CT exam could be obtained in 12 months --END OF FINDING-- Contact Center Team Lead: [facility] Transcribe Date/Time: Feb 17 2023 11:35A Dictated by : JUNIOR URIBE MD This examination was interpreted and the report reviewed and electronically signed by: MOJGAN PUENTES MD on Feb 17 2023 2:38PM EST Last ECHO Result Conclusion ECHO Collected: 02/17/2023 9:18 AM (Final result) Impression: CONCLUSIONS: - Technically difficult exam due to body habitus. - Exam indication: AAA - The left ventricle is normal in size. Left ventricular systolic function is normal. EF = 56 ? 5% (2D biplane) Grade I left ventricular diastolic dysfunction. - The right ventricle is normal in size. Right ventricular systolic function is normal. - Exam was compared with the prior echocardiographic exam performed on 11/14/2020, similar findings. * * * Final * * * Impression: No evidence of thoracic aortic aneurysm disease Plan: Refer to Vascular Surgery to eval infra-renal aorta These findings will be communicated back to the requesting physician via electronic medical record Cody Reynaga MD Referring Provider: SELF [[id number]] Allergies As of Date: 02/17/2023 Noted Allergy Reaction KAZAKH COCKROACH ALLERGENIC EXT*07/07/2020 4 - Hives APPLES 07/07/2020 4 - Hives DUST MITES 07/07/2020 4 - Hives FISH CONTAINING PRODUCTS 07/07/2020 14 - Other: See Comments Comments: Allergy to Cod/flounder/halibut GRASS POLLEN-KENTULICESY BLUE, STAND*07/07/2020 5 - Intolerance TREE POLLEN-KAZAKH ELM 07/07/2020 5 - Intolerance WEED POLLEN-KOCHIA (FIREBUSH) 07/07/2020 5 - Intolerance WEED POLLEN-WESTERN RAGWEED 07/07/2020 14 - Other: See Comments WHEAT 07/07/2020 14 - Other: See Comments Comments: Wheat Pollen And Whole Grain Date Reviewed: 02/17/2023 Reviewed by: Chris Argueta MA - Fully Assessed Reason for Visit: Post-Op Visit [1236] Primary Visit Diagnosis:Infrarenal abdominal aortic aneurysm (AAA) without rupture (HCC) [I71.43] Order(s):CONSULT TO VASCULAR SURGERY [9042] Order #: [id number]: 1 FUTURE Prescriptions as of 02/24/2023 - pravastatin (PRAVACHOL) 20 mg tablet Take 2 tablets by mouth daily at bedtime. - valsartan (DIOVAN) 40 mg tablet Take 1 tablet by mouth once daily. - azelastine (ASTELIN) 0.1% nasal spray once daily. - ascorbic acid/collagen hydr (COLLAGEN PLUS VITAMIN C ORAL) once daily. - C,E,zinc,copper 11/sppze3c/lut (OCUVITE ADULT 50 PLUS ORAL) once daily. - CALCIUM CITRATE-VITAMIN D3 ORAL once daily. - FLUTICASONE PROPIONATE NASAL as needed. - Olopatadine 0.2 % drop Use 1 Drop in both eyes once daily. - COQ10, UBIQUINOL, ORAL once daily. - Multivitamin capsule Take 1 capsule by mouth once daily. - famotidine (PEPCID) 20 mg tablet Take 20 mg by mouth twice daily as needed. (more content not included)... [facility] CN Office Visit (CATHMN ) BARRIE LAWSON ([id number]) 1960 F Date Time Provider Department 02/17/23 12:00 PM KATHRYN MERCADO CATHOH During your visit today, we recorded the following information about you: Pulse Blood pressure Weight Height 66/minute 137/81 58.7 kg 1.613 m Kathryn Mercado MD 04/07/2023 9:31 AM Signed [facility] Department of Cardiovascular Medicine SECTION OF INTERVENTIONAL CARDIOLOGY OUTPATIENT VISIT DATE February 17 2023 OUTPATIENT VISIT TYPE NEW PRIMARY CARE PHYSICIAN: Pascual Garibay Jr, DO ([facility]) [address] [address] PRIMARY PAINTING INSTRUCTOR: Dr. Jamila Acosta REFERRING PHYSICIAN: Cody Reynaga [id number] [facility] [id number] CHIEF COMPLAINT: Abd aortic aneurysm HISTORY OF PRESENT ILLNESS: Ms. Lawson is a 62 year old female who presents today for pre-op assessment of desc thoracic and abd aortic aneurysm surgery. No history of coronary disease. Some chest pain in the past, though not typical of angina. FUENTES which has been stable - COPD and/or chronic diastolic heart failure. FUENTES class 2. No orthopnea or PND. NURSING INTAKE: Past medical history includes: AAA distal 4.5cm, COPD, chronic diastolic HF, past smoking, current vaping, HLD, Pt reports AAA has enlarged and comes for evaluation She reports chest pain in past but none recently, never had coronary angiogram this would be associated with palpiatoins which she reports she has not had in a while She notes SOB with 1 flight of stairs which is unchanged No orhtpnea, pND She notes slight LE edema She deneis synocpe, CVA or TIa She stopped smoking and she currently vapes 11/14/2020 TTE (syngo): CONCLUSIONS: - Exam indication: Re-evaluation of known Heart Failure with a change in clinical status with a clear precipitating change in med/diet - The left ventricle is normal in size. Left ventricular systolic function is normal. EF = 60 ? 5% (2D biplane) - The right ventricle is normal in size. Right ventricular systolic function is normal. - The patient has not had a prior CC echocardiographic exam for comparison. 05/21/2022 ABD US: 11/30/2022: LDL 90 HDL 38 TRIG 170 CHOL 157 02/17/23 Creat 0.90 GFR > 60 Diek Nutrition: None Weight: no change since last visit Exercise: Walks daily at work PAST MEDICAL HISTORY Diagnosis Date AAA (abdominal aortic aneurysm) (HCC) Congestive heart failure (HCC) Diverticulosis Dyslipidemia PAST SURGICAL HISTORY Procedure Laterality Date APPENDECTOMY REMOVAL GALLBLADDER REMV CATARACT EXTRACAP,INSERT LENS Bilateral SURGERY ADD Right bunion on R foot TONSILLECTOMY HX SOCIAL HISTORY Social History Tobacco Use Smoking status: Every Day Packs/day: 0.25 Years: 42.00 Additional pack years: 0.00 Total pack years: 10.50 Types: Cigarettes Smokeless tobacco: Current Tobacco comments: currently vapes Substance Use Topics Alcohol use: Not Currently Drug use: Never FAMILY HISTORY Problem Relation Age of Onset Hypertension Mother Hyperlipidemia Mother other (kidney cancer) Mother Cancer Father lung Hypertension Brother Neuropathy Brother No Known Problems Sister No Known Problems Brother Cancer Brother testicular cancer other (diverticulosis) Sister No Known Problems Sister No Known Problems Sister Systemic Lupus Erythematosus Sister ALLERGIES: ALLERGIES Allergen Reactions Cambodian Cockroach * Hives Apples Hives Dust Mites Hives Fish Containing Pro* Other: See Comments Allergy to Cod/flounder/halibut Grass Pollen-Kentuc* Intolerance Tree Pollen-Edwar* Intolerance [place] Pollen-Kochia * Intolerance [place] Pollen-Western* Other: See Comments Wheat Other: See Comments Wheat Pollen And Whole Grain MEDICATIONS: buPROPion XL (WELLBUTRIN XL) 150 mg 24 hr tablet JARDIANCE 25 mg tablet Take 25 mg by mouth every morning. fluconazole (DIFLUCAN) 100 mg tablet Take 100 mg by mouth one time a week. valsartan (DIOVAN) 40 mg tablet Take 1 tablet by mouth once daily. pravastatin (PRAVACHOL) 20 mg tablet 20 mg daily at bedtime. azelastine (ASTELIN) 0.1% nasal spray once daily. ascorbic acid/collagen hydr (COLLAGEN PLUS VITAMIN C ORAL) once daily. C,E,zinc,copper 11/tmiak0y/lut (OCUVITE ADULT 50 PLUS ORAL) once daily. CALCIUM CITRATE-VITAMIN D3 ORAL once daily. FLUTICASONE PROPIONATE NASAL as needed. rsumk-haxfk-2-dha-epa -lipids (KRILL OIL) 983-98-94-50 mg cap once daily. Olopatadine 0.2 % drop once daily. COQ10, UBIQUINOL, ORAL once daily. Vitamin E, dl, acetate, (VITAMIN E) 400 unit capsule once daily. chrom fadia/brindal abebe (GARCINIA CAMBOGIA ORAL) Take by mouth once daily. Multivitamin capsule Take 1 capsule by mouth once daily. famotidine (PEPCID) 20 mg tablet Take 20 mg (more content not included)... [facility] CREATININE Tony 02-17-2023 Creatinine [Mass/Vol] 0.78 mg/dL [facility] 0[facility]58-0.96 [facility] Comment on above: Order Comment: Speci men Type: BLOOD SPECIMENOrdering Facility: Address: [address] [place] [id number] Performed By: #### C RET1 ####[facility] LABCLIA [id number] [address] STATES OF [facility] Creatinine and Glomerular filtration rate.predicted panel (S/P/Bld) 86 mL/min/1.73m??? Normal >=60 [facility] Comment on above: Order Comment: Speci men Type: BLOOD SPECIMENOrdering Facility: Address: [address] [place] [address] Result Comment: Juanita mated Glomerular Filtration Rate (eGFR) is calculated using the 2020 CKD-EPI creatinine equation. This equation utilizes serum creatinine, sex, and age as parameters. The creatinine assay has traceable calibration to isotope dilution-mass spectrometry. Refer to KDIGO guidelines for clinical interpretation. In patients with unstable renal function, e.g. those with acute kidney injury, the eGFR may not accurately reflect actual GFR. Performed By: #### C RET1 ####[facility] LABCLIA [id number] [place] [address] [place] CTA CHEST (GATED) W IVCONon 02-17-2023 CTA CHEST (GATED) W IVCON * * *Final Report* * * DATE OF EXAM: Feb 17 2023 11:12AM JQC 0125 - CTA CHEST (GATED) W IVCON / PROCEDURE REASON: multiple diagnoses * * * * Physician Interpretation * * * * CTA Aorta chest Direct Image Comparison: None available HISTORY: 62-year-old male with aneurysmal dilation of the distal abdominal aorta measuring 4.5 x 3.8 cm in diameter found on ultrasound screening. Evaluation for diagnostic clarification and further treatment options. There is request to define thoracic and aortic anatomy TECHNIQUE: SCANNER: Siemens Definition Edge scanner 128 slice scanner PROTOCOL: Sequential imaging of the chest with prospective triggering in diastolic phase following the intravenous administration of contrast material. Scan Range: thoracic inlet to the diaphragm CT Dose-Length Product (DLP): 372 mGy*cm CT Dose Reduction Employed: Automated exposure control(AEC) and iterative recon CONTRAST: IV administration of 90 ml Omnipaque 350 Scan acquisition: uncomplicated Macro Version: [id number] For optimization of anatomic evaluation, advanced 3-D off-line postprocessing was performed on a dedicated workstation by the interpreting physician. STUDY LIMITATIONS: None. RESULT: LINES, TUBES and DEVICES: None CHEST: Chest wall anatomy: unremarkable. LUNGS: Moderate upper lobe predominant centrilobular and paraseptal emphysema. Right posterior fat-containing diaphragmatic hernia. Few small (<6 mm) pulmonary nodules. For example, 2 mm nodule in the right upper lobe (5:64), 5 mm nodule in the right upper lobe (5:49), 4 mm nodule in the left upper lobe (5:79), 4 mm left upper lobe nodule (5:123). MEDIASTINUM: unremarkable. PERICARDIUM: unremarkable CENTRAL PULMONARY ARTERY: normal dimensions, assessment is limited due to limited contrast enhancement CARDIAC CHAMBERS: LEFT VENTRICLE: normal size Right ventricle: normal size Left atrium: normal size. LORENZO: normal Right atrium: normal size CENTRAL VENOUS and PULMONARY VENOUS RETURN: normal Coronary Sinus: normal size MITRAL and TRICUSPID VALVES assessment is limited in the current study - no leaflet calcification. No annular calcification PULMONIC VALVE: assessment is limited in the current study. No leaflet calcification CORONARY ANATOMY: Normal origin of the coronary arteries. Mild calcified atherosclerotic changes of the coronary arteries. However, the current study is not optimized for coronary assessment. ELY SHOSHONE AORTIC VALVE: appears trileaflet. No leaflet calcification. AORTA: Size: Ectasia/Dilation distal descending thoracic aorta. Pathology: No acute aortic pathology. Intervention: None STJ: maintained Mild calcification Wall Changes: Mild wall calcification at the sinotubular junction. Non-calcified wall changes in the descending thoracic aorta Arch Branch Vessels: Common origin of the innominate and left carotid artery. No evidence of calcification. AORTIC DIMENSIONS: ELY SHOSHONE AORTIC ROOT: 3.4 cm measured [id number] mid ASCENDING THORACIC AORTA: 3.1 cm mid AORTIC ARCH: 2.9 cm mid DESCENDING THORACIC AORTA: 2.7 cm distal DESCENDING THORACIC AORTA: 3.5 cm RELATIONSHIP OF THE CARDIOVASCULAR STRUCTURES OF THE STERNUM: Left brachio-cephalic vein lies 5 mm behind the manubrium sternum RV lies 6 mm behind the lower sternum Aorta lies 20 mm behind the upper sternum limited upper ABDOMEN: Status post cholecystectomy. Non-specific bilateral adrenal gland thickening. BONES: Degenerative changes of the thoracic spine and bilateral shoulders. Account Services Associate (topogram) images: No additional findings. IMPRESSION: 1. Dilation of the distal descending thoracic aorta just proximal to the diaphragmatic hiatus, measuring 3.5 cm in diameter. The remainder of the thoracic aorta is normal in course and caliber. 2. Moderate upper lobe predominant centrilobular and paraseptal emphysema. 3. Small (< 6 mm) pulmonary nodules as described. Incidental Finding: Follow-up Acuity: Incidental Finding: Solid: <6 mm (solitary or multiple) Routing Code: N/A Recommendation: No imaging follow-up is recommended Time Frame: N/A Comments: If there are risk factors for lung malignancy, a follow-up chest CT exam could be obtained in 12 months --END OF FINDING-- Contact Center Team Lead: CHIQUI Transcribe Date/Time: Feb 17 2023 11:35A Dictated by : JUNIOR URIBE MD This examination was interpreted and the report reviewed and electronically signed by: MOJGAN PUENTES MD on Feb 17 2023 2:38PM EST [id number] ACTIONABLE Invalid Interpretation Code [facility] ECHOon 02-17-2023 Echocardiography Echocardiography Report: Transthoracic Echo [facility] CORAL-2 Date of service: 02/17/2023 9:18:11 AM Ordering physician: CODY REYNAGA Indication: AAA Technologist: Sobia Gordon Interpreting physician: Sariah Loyd MD PATIENT: Name: BARRIE LAWSON : 1960 Age: 62 years Gender: F Primary rhythm: sinus. Height: 161.90 cm BSA: 1.64 m Weight: 60.06 kg BMI: 22.9 kg/m Heart rate 44 bpm Blood pressure 134/84 mmHg Technically difficult exam due to body habitus. Color Doppler was utilized to interrogate the cardiac valves assessed and spectral Doppler was utilized to determine the flow velocities and pressure gradients reported in this exam. Myocardial strain analysis was performed in this exam to aid in the assessment of cardiac function. MEASUREMENTS: Value Indexed Normal Max aortic dimension 3.1 cm Ao < 3.8 Left atrial volume 46 ml (biplane A-L) 28 ml/m Blaine <= 34 LV ID (diastole) 4.8 cm (2D) 2.92 cm/m LV ID (systole) 3.2 cm (2D) 1.95 cm/m IVS, leaflet tips 0.6 cm (2D) Posterior wall thickness 0.7 cm (2D) Left ventricular mass 97 g (2D) 59 g/m Global peak long strain -16.8 % LV stroke volume 35 ml (2D biplane) LV end diastolic volume 63 ml (2D biplane) 38.6 ml/m 29<=EDVi<62 LV end systolic volume 28 ml (2D biplane) 17.0 ml/m Ejection Fraction 56 % (2D biplane) EF > 54 FINDINGS: LEFT VENTRICLE The left ventricle is normal in size. Left ventricular systolic function is normal. Global LV myocardial strain is normal. Grade I left ventricular diastolic dysfunction. Mitral annular lateral E/e': 13.6. Mitral annular septal E/e': 5.7. Wall Motion: All scored segments are normal. RIGHT VENTRICLE The right ventricle is normal in size. Right ventricular systolic function is normal. RV systolic tissue Doppler velocity is 15.0 cm/s. Tricuspid annular displacement is 1.7 cm. Estimated right ventricular systolic pressure is 30 mmHg consistent with normal pulmonary artery pressures. Estimated right atrial pressure is 3 mmHg based on IVC assessment. LEFT ATRIUM The left atrial cavity is normal in size. RIGHT ATRIUM The right atrial cavity is normal in size. Inferior Vena Cava: The inferior vena cava appears normal measuring 1.5 cm. The vessel decreases greater than 50 percent with inspiration. MITRAL VALVE There is trace mitral valve regurgitation. There is no thickening. The pressure half time is 62 msec. The peak mitral E/A ratio is 0.59. The average mitral E/e' ratio is 9.6. The mitral flow deceleration time is 215 msec. TRICUSPID VALVE The tricuspid valve leaflets are structurally normal. There is mild (1+) tricuspid valve regurgitation. AORTIC VALVE There is trace aortic valve regurgitation. Tricuspid aortic valve. There is mild thickening. The peak gradient is 4 mmHg (peak velocity = 101.0 cm/s). PULMONIC VALVE The pulmonic valve cusps are structurally normal. There is mild (1+) pulmonic valve regurgitation. AORTA The visualized aorta is normal in size. Measurements - Sinus: 2.9 cm. Sinotubular junction 2.8 cm. Mid ascending aorta 2.9 cm. Distal ascending aorta 3.1 cm. Mid arch 2.9 cm. PULMONARY ARTERIES The pulmonary arteries are normal. INTERATRIAL SEPTUM There is no evidence of intracardiac shunting as detected by Doppler. PERICARDIUM There is no pericardial effusion. CONCLUSIONS: - Technically difficult exam due to body habitus. - Exam indication: AAA - The left ventricle is normal in size. Left ventricular systolic function is normal. EF = 56 5% (2D biplane) Grade I left ventricular diastolic dysfunction. - The right ventricle is normal in size. Right ventricular systolic function is normal. - Exam was compared with the prior echocardiographic exam performed on 11/14/2020, similar findings. * * * Final * * * [employer] [facility] : [id number] [facility] 12-23-[address] [facility] Telephone ([facility]) BARRIE LAWSON ([id number]) 1960 F Date Time Provider Department 12/23/22 CODY REYNAGA [facility] During your visit today, we recorded the following information about you: Dania Pedroza 12/23/2022 2:[address] Garibay's office requesting medical records. They will fax reports for Abdominal Ultrasound October 2022, HANDP, Echo (from a couple of months ago). They don't share CDs because they have multiple patients on one CD. They will try to upload images via [employer] link. Humberto Yoo RN 12/30/2022 9:39 AM Signed Chart reviewed December 30, 2022. File given to Dr. Reynaga for his review/plan of care. Barrie Lawson [id number] 62 year old Diagnosis: AAA distal 4.5 cm Secondary Dx: COPD, chronic diastolic HF, current tobacco, DLD Previous Surgeries: no cardiac Symptoms: denies EF%: 50 Thinners: motrin Smoking status: current 1 Rep Max 250 lbs, Occasional (75% max) 188 lbs, Frequent (45% max) 113 lbs, Constant (35% max) 88 lbs; Comments: current 05/29 PPD Humberto Rudd RN, RN 01/09/2023 11:[address] Reynaga reviewed file and is offering evaluation and testing. NPM to contact patient to arrange. Humberto Rudd RN, RN 01/09/2023 11:49 AM Signed Schedule eval Needs Cards, CTA, Echo, talita Reynaga on 02/17 Please mail to patient. Patient accepted evaluation on 02/17. Humberto Yoo RN Allergies As of Date: 12/23/2022 Noted Allergy Reaction KAZAKH COCKROACH ALLERGENIC EXT*07/07/2020 4 - Hives APPLES 07/07/2020 4 - Hives DUST MITES 07/07/2020 4 - Hives FISH CONTAINING PRODUCTS 07/07/2020 14 - Other: See Comments Comments: Allergy to Cod/flounder/halibut GRASS POLLEN-RHONDA BLUE, STAND*07/07/2020 5 - Intolerance TREE POLLEN-KAZAKH ELM 07/07/2020 5 - Intolerance WEED POLLEN-KOCHIA (FIREBUSH) 07/07/2020 5 - Intolerance WEED POLLEN-WESTERN RAGWEED 07/07/2020 14 - Other: See Comments WHEAT 07/07/2020 14 - Other: See Comments Comments: Wheat Pollen And Whole Grain Date Reviewed: 06/21/2021 Reviewed by: Lorri Stearns Ma - Fully Assessed Reason for Visit: Referral Information [2363] Consult [173] Primary Visit Diagnosis:Disorder of artery or arteriole (HCC) [I77.9] Other Visit Diagnoses:Infrarenal abdominal aortic aneurysm (AAA) without rupture (HCC) [I71.43] Mitral valve disorder [I05.9] Tricuspid valve disorders, 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 - fluconazole (DIFLUCAN) 100 mg tablet Take 100 mg by mouth one time a week. - valsartan (DIOVAN) 40 mg tablet Take 1 tablet by mouth once daily. - pravastatin (PRAVACHOL) 20 mg tablet 20 mg daily at bedtime. - azelastine (ASTELIN) 0.1% nasal spray once daily. - ascorbic acid/collagen hydr (COLLAGEN PLUS VITAMIN C ORAL) once daily. - C,E,zinc,copper 11/huwtv2d/lut (OCUVITE ADULT 50 PLUS ORAL) once daily. - CALCIUM CITRATE-VITAMIN D3 ORAL once daily. - FLUTICASONE PROPIONATE NASAL as needed. - wbqfq-vsdrs-7-dha-epa -lipids (KRILL OIL) 063-33-71-50 mg cap once daily. - Olopatadine 0.2 % drop once daily. - COQ10, UBIQUINOL, ORAL once daily. - Vitamin E, dl, acetate, (VITAMIN E) 400 unit capsule once daily. - chrom fadia/brindal abebe (GARCINIA CAMBOGIA ORAL) Take by mouth once daily. - Multivitamin capsule Take 1 capsule by mouth once daily. - famotidine (PEPCID) 20 mg tablet Take 20 mg by mouth once daily. - ibuprofen (MOTRIN) 800 mg tablet Take 800 mg by mouth three times daily as needed. Problem List As Of Date 12/23/2022 Noted Resolved Essential hypertension [I10] 07/07/2020 Tobacco abuse [Z72.0] 07/07/2020 Other hyperlipidemia [E78.49] 07/07/2020 Chronic diastolic heart failure (HCC) [I50.32] 07/25/2020 History of COVID-19 [Z86.16] 11/14/2020 Encounter Status:Closed by HUMBERTO YOO RN on 01/09/[address] [facility] [address] LUNG CANCER SCREENINGon 0 01-21-2022 CT LUNG CANCER SCREENING EXAMINATION: CT LUNG CANCER SCREENING HISTORY: Tobacco dependence caused by cigarettes COMPARISON: No relevant comparison available. TECHNIQUE: Axial, Coronal, and Sagittal images were created without the administration of IV contrast material. Dose reduction techniques were achieved by using automated exposure control and/or adjustment of mA and/or kV according to patient size and/or use of iterative reconstruction technique. FINDINGS: LUNGS: Moderate emphysematous changes. No acute infiltrates or suspicious nodules. PLEURA: No mass, effusion, or pneumothorax. VASCULATURE: No abnormality. ANTOINETTE: No mass or pathologic adenopathy. MEDIASTINUM: No mass or pathologic adenopathy. CARDIAC: No enlargement, pericardial thickening, or significant calcification. AORTA: No aneurysm or dissection. CHEST WALL: No mass or axillary adenopathy BONES: No bone lesion or fracture. LIMITED ABDOMEN: No suspicious findings. Limited images of the upper abdomen. OTHER: Negative. IMPRESSION: 1. LUNG SCREENING: Lung-RADS Category 1 Negative. No nodules and definitely benign nodules. Continue annual screening with LDCT in 12 months. 2. Moderate emphysematous changes. Electronically authenticated by: TERESA RODGERS Date: 2022-01-21 14:21 Normal [facility] MAMM SCREEN 3D CHARISSE CADon 01-21-2022 MAMM SCREEN 3D CHARISSE CAD Patient: BARRIE LAWSON Exam Date: 01/21/2022 : 1960 Gender:F Ordering : DR PASCUAL GARIBAY D.O. Admission #: [id number] Family : Order #: [id number] CLICK HERE TO VIEW EXAM RADIOLOGY REPORT PROCEDURE: MAMMOGRAM SCREENING 3D BILATERAL CAD COMPARISON: MG MAMM SCREEN CHARISSE W CAD, 08/04/2020. MG MAMM CHARISSE SCRN W CAD DIG, 09/11/2015. INDICATIONS: Screening mammography Calculator Name NCI Breast Cancer Risk Assessment Tool 5 Year Breast Cancer Risk 1.10% Lifetime Breast Cancer Risk 5.20% Personal Breast Cancer No Personal Ovarian Cancer No Treatments None Family Cancers Father with lung cancer at age 50. LOCATION: [facility] BREAST COMPOSITION: Heterogeneously dense,which may obscure small masses. FINDINGS: DIAGNOSTIC CATEGORY 1--NEGATIVE. NO CHANGE FROM COMPARISON ASSESSMENT. Scattered benign-appearing calcifications are present. RIGHT BREAST: No significant suspicious finding. LEFT BREAST: No significant suspicious finding. RECOMMENDATIONS: ROUTINE MAMMOGRAM AND CLINICAL EVALUATION IN 12 MONTHS. PLEASE NOTE: A NORMAL MAMMOGRAM DOES NOT EXCLUDE THE POSSIBILITY OF BREAST CANCER. A CLINICALLY SUSPICIOUS PALPABLE LUMP SHOULD BE BIOPSIED. Dictated by: Linda López MD on 01/21/2022 at 14:37 Approved by: Linda López MD on 01/21/2022 at 14:38 Normal [facility] Vital Signs Date Time Vital Sign Value Performing Clinician Kalin davies 02-17-2023 12:26-0400 Diastolic blood pressure 81 mm[Hg] Kathryn Mercado MD Work Phone: [facility] 02-17-2023 12:26-0400 Systolic blood pressure 137 mm[Hg] Kathryn Mercado MD Work Phone: [facility] 02-17-2023 12:25-0400 Body height 161.3 cm Kathryn Mercado MD Work Phone: [facility] 02-17-2023 12:25-0400 Body weight 58.65 kg Kathryn Mercado MD Work Phone: [facility] 02-17-2023 12:25-0400 Heart rate 66 /min Kathryn Mercado MD Work Phone: [facility] 02-17-2023 12:25-0400 SaO2% (BldA) [Mass fraction] 95 % Kathryn Mercado MD Work Phone: [facility] Encounters Encounter Date Encounter Type Care Provider Facility Start: 04-08-2023 End: 04-08-2023 ambulatory LETA MALAVE Facility:[facility] Start: 04-08-2023 End: 04-08-2023 ambulatory Leta Malave MD Work Phone: Vascular Surgery Comment on above: Infrarenal abdominal aortic aneurysm (AAA) without rupture (HCC) (Primary Dx) Start: 04-08-2023 End: 04-08-2023 Telemedicine consultation with patient Leta Malave MD Work Phone: [facility] Start: 04-03-2023 ambulatory PASCUAL GARIBAY JR Facility:[facility] Start: 04-03-2023 Encounter for other preprocedural examination PASCUAL GARIBAY JR [facility] Start: 04-03-2023 End: 04-03-[address] [facility] Work Phone: [facility] Start: 04-03-2023 End: 04-03-2023 Subsequent hospital visit by physician [facility] Work Phone: [facility] Comment on above: Encounter for other preprocedural examination [Z01.818] Start: 03-27-2023 End: 03-27-2023 ambulatory LETA LEE SILVA Facility:[facility] Start: 03-06-2023 Telephone encounter Pedro Pablo crockett DPM Work Phone: Orthopaedics Start: 03-03-2023 End: 03-03-2023 ambulatory PEDRO PABLO CHRISTINESI Facility:[facility] Start: 03-03-2023 End: 03-03-2023 Patient encounter procedure Pedro Pablo Parker DPM Work Phone: Podiatry Comment on above: Dislocated toe, righ t, initial encounter (Primary Dx); Pain; Plantar fascial fibromatosis; Acquired hallux valgus of right foot; Porokeratosis; Metatarsus adductus; History of foot surgery Start: 02-26-2023 ambulatory Rosie Valdes Pulmonar y Medicine Start: 02-17-2023 End: 02-18-2023 ambulatory CODY REYNAGA Facility:[facility] Start: 02-17-2023 End: 02-17-2023 Patient encounter procedure Kathryn Mercado MD Work Phone: Cardiology Comment on above: Essential hypertensi on (Primary Dx); Vaping nicotine dependence, non-tobacco product; Mixed hyperlipidemia; Chronic obstructive pulmonary disease, unspecified COPD type (HCC); Ex-smoker for less than 1 year; Infrarenal abdominal aortic aneurysm (AAA) without rupture (HCC) Start: 02-17-2023 End: 02-18-2023 ambulatory CODY REYNAGA Facility:[facility] Start: 12-23-2022 Telephone encounter Cody li MD Work Phone: Cardiothoracic Comment on above: Referral Information ; Consult Start: 01-21-2022 End: 01-22-[address] PASCUAL GARIBAY Facility: Start: 01-01-2022 Refkarla deluca DO Work Phone: Cardiology Comment on above: Refill Request Procedures Date Procedure Procedure Detail Performing Clinician Start: 06-21-2021 Adult depression screening assessment Jamila Acosta Work Phone: Start: 07-07-2020 Lipid 1996 panel - S ronna or Plasma Rosie Valdes Plan of Treatment Date Care Activity Detail Author Start: 07-07-2025 Lipid 1996 panel - S ronna or Plasma Lipid Screening [facility] Start: 07-07-2025 LIPID SCREEN LIPID SCREEN [facility] Start: 11-15-2023 DIABET[facility] Start: 11-15-2023 Diabetes Screening Diabetes Screenin g [facility] Start: 01-24-2023 Covid-19 Vaccine () Covid-19 Vaccine () [facility] Start: 01-24-2023 Influenza vaccination C [facility] Start: 01-09-2023 End: 03-11-2023 CREATININE BLD CREATININE BLD Lab Routine Infrarenal abdominal aortic aneurysm (AAA) without rupture (HCC) Disorder of artery or arteriole (HCC) Mitral valve disorder Tricuspid valve disorders, non-rheumatic Expected: 01/09/2023, Expires: 03/11/2023 [facility] Work Phone: Comment on above: Expected: 01/09/2023 , Expires: 03/11/2023 Start: 06-21-2022 Adult depression scr eening assessment DEPRESSION SCREENING [facility] Start: 05-26-2022 DEPRESSION ASSESSMENT DEPRESSION ASS ESSMENT [facility] Start: 01-24-2022 Influenza vaccination INFLUENZA (#1) [facility] Start: 10-12-2021 COVID-19 VACCINE (3 - Booster for Moderna series) COVID-19 VACCINE (3 - Booster for Moderna series) [facility] Start: 07-09-2021 COVID-19 VACCINE (3 - Moderna series) COVID-19 VACCINE (3 - Moderna series) [facility] Start: 2020 RSV Vaccine (1 - 1-d ose 60+ series) RSV Vaccine (1 - 1-dose 60+ series) [facility] Start: 2010 SHINGRIX VACCINE (1 of 2) CONN GRIX VACCINE (1 of 2) [facility] Start: 2005 COLOGUARD (FIT-DNA) COLOGUARD (FIT-D NA) [facility] Start: 2005 Colonoscopy COLONOSCOPY [facility] Start: 2005 COLORECTAL CANCER SCREENING COLORECTAL CANCER SCREENING [facility] Start: [address] COLONOGRAPHY [facility] Start: 2005 FECAL OCCULT BLOOD FECAL OCCULT BLOO D [facility] Start: 2005 SIGMOIDOSCOPY SIGMOIDOSCOPY [facility] Start: 2000 Mammography [facility] Start: 1990 HPV TESTING HPV TESTING [facility] Start: 1981 PAP TESTING PAP TESTING [facility] Start: 1979 Urine microalbumin profile [facility] Start: 1978 ANNUAL PCP TEAM TOOL DESIGN ENGINEER RICHARD DISEASE VISIT ANNUAL PCP TEAM CHRONIC DISEASE VISIT [facility] Start: 1978 BP CONTROLLED (<130/80) BP CONTROLLE D (<130/80) [facility] Start: 1978 HEPATITIS C SCREENING HEPATITIS C SC REENING [facility] Start: 1978 HIV SCREENING HIV SCREENING [facility] Start: 1966 PNEUMOCOCCAL (1 - PCV) PNEUMOCOCCAL (1 - PCV) [facility] Start: 1966 Pneumococcal vaccination Pneum ococcal Vaccine (1 - PCV) [facility] Ct angio abd&plvis c ntrst mtrl w/wo cntrst img CTA ABD/PEL W IVCON Radiology Routine Encounter for other preprocedural examination 04/03/2023 11:31 AM EST [facility] Work Phone: End: 02-08-2024 Ct angiography chest w/contrast/noncontrast CTA CHEST (GATED) W IVCON Radiology Routine Infrarenal abdominal aortic aneurysm (AAA) without rupture (HCC) Disorder of artery or arteriole (HCC) Mitral valve disorder Tricuspid valve disorders, non-rheumatic 1 Occurrences starting 01/09/2023 until 02/08/2024 [facility] Work Phone: Comment on above: 1 Occurrences starti ng 01/09/2023 until 02/08/2024 Ct angiography chest w/contrast/noncontrast CTA CHEST (NONGATED) W IVCON Radiology Routine Encounter for other preprocedural examination 04/03/2023 11:31 AM EST [facility] Work Phone: End: 01-10-2024 Echocardiography ECHO Cardiology Routine Infrarenal abdominal aortic aneurysm (AAA) without rupture (HCC) Disorder of artery or arteriole (HCC) Mitral valve disorder Tricuspid valve disorders, non-rheumatic 1 Occurrences starting 01/09/2023 until 01/10/2024 [facility] Work Phone: Comment on above: 1 Occurrences starti ng 01/09/2023 until 01/10/2024 End: 04-01-2024 US FOOT LEFT US FOOT LEFT Radiology Routine Plantar fascial fibromatosis 1 Occurrences starting 03/03/2023 until 04/01/2024 [facility] Work Phone: Comment on above: 1 Occurrences starti ng 03/03/2023 until 04/01/2024 [facility] Payers Date Payer Category Payer Unknown [id number] 1960 Unknown [id number] 1959 Unknown [id number] Social History Date Type Detail Facility Start: 07-07-2020 Tobacco smoking stat [facility] Smokes tobacco daily [facility] End: 11-23-2022 History of tobacco use Cigarette Smoker [facility] Start: 07-07-2020 End: 02-03-2023 Cigarettes smoked current (pack per day) - Reported 0.3 [facility] Start: 07-07-2020 End: 02-17-2023 Tobacco use and exposure User of smokeless tobacco [facility] Start: 06-21-2021 End: 03-27-2023 Alcohol intake Ex-drinker (finding) [facility] Start: 07-07-2020 End: 02-17-2023 Tobacco Comment currently vapes [facility] Start: 1960 Sex Assigned At Female [facility] Start: 12-30-2022 End: 02-03-2023 Tobacco use panel [facility] Adult Depression Screening Assessment 0 [facility] Start: 07-02-2020 Gender identity Identifies as female gender (finding) [facility] Start: 07-02-2020 Sexual orientation Heterosexual (becka ramirez) [facility] Start: 02-17-2023 Tobacco smoking stat us NHIS Ex-smoker [facility] End: 11-23-2022 History of tobacco use Current smoker [facility] Clinical Notes 01-09-2023 to 04-08-2023 Leta Malave MD - 04/08/2023 9:[address] - 04/03/2023 11:00 AM ESTTelephone Encounter - Zane Gamez RN - 03/06/2023 12:04 PM EDTPatient Instructions Note Date & Type Note Facility 04-08-2023 Note HNO ID: [id number] Author: Leta Malave MD Service: ? Author Type: Physician Type: Progress Notes Filed: 04/08/2023 10:14 AM Note Text: TELEPHONE VISIT (audio only) PROGRESS NOTE This is a telephone encounter initiated for an established patient. The patient, parent or guardian is not originating from a related Evaluation AND Management service provided within the previous 7 days nor leading to an Evaluation AND Management service or procedure within the next 24 hours or soonest available appointment. I have communicated my name and active licensure. The patient's identity and physical location were verified at the time of this visit. Either the patient or their legal pharmaceutical representative has been informed of the risks and benefits of -- and alternatives to -- treatment through a remote evaluation and consents to proceed with the evaluation remotely. Barrie Lawson has consented to this telephone encounter. Persons Present: patient Chief Complaint/Reason: Abdominal aortic aneurysm HPI: 62 year old female who I saw in consultation regarding a AAA on 03/27/23. Since then, she underwent CTA of the A/P which demonstrated a 46mm infrarenal AAA based on cross-sectional measurements. This was similar in size to the ultrasound she had in 04/2022 which demonstrated a 4.5cm infrarenal aneurysm. She continues to denies any symptoms associated with her aneurysm including abdominal pain, back pain, flank pain, or referred pain into her groin. She is a former smoker but currently vapes. She denies any claudication, rest pain, or tissue loss. She has no anginal symptoms with exertion and denies SOB while walking up 2 flights of stairs. Data Reviewed: CTA A/P: 46 mm infrarenal aortic aneurysm with 2 right renal arteries and 2 left renal arteries. The left renal artery origins are above the aneurysm, but the lower of the 2 right renal arteries originates within the aneurysm sac. ASSESSMENT Barrie Lawson is a 62 year old female with an abdominal aortic aneurysm, which measures 46mm by cross sectional CTA. Two right renal arteries and two left renal arteries; the lower of the two RRA comes off the aneurysm sac. PLAN/RECOMMENDATIONS I had a thorough discussion with the patient regarding the imaging findings and my clinical impression. Her Ultrasound and CTA are concurrent in size. I explained the size threshold for repair in women was 5cm and while she has not shown any dramatic growth since her April ultrasound, I recommended repeat interval imaging in 6 months with another ultrasound to continue surveillance. Given the additional renal artery, she would likely benefit from an open approach with RRA re-implantation. I did not recommend a fenestrated device as the origin of the RRA is <3mm. There were no barriers to communication or education today and the patient and family know to call with any questions that may arise. Leta Malave MD Staff Surgeon, Vascular Surgery Total Time Spent: 21-30 minutes [facility] 04-08-2023 History of Present illness Narrative Images from the original note were not included. TELEPHONE VISIT (audio only) PROGRESS NOTE This is a telephone encounter initiated for an established patient. The patient, parent or guardian is not originating from a related Evaluation & Management service provided within the previous 7 days nor leading to an Evaluation & Management service or procedure within the next 24 hours or soonest available appointment. I have communicated my name and active licensure. The patient's identity and physical location were verified at the time of this visit. Either the patient or their legal pharmaceutical representative has been informed of the risks and benefits of -- and alternatives to -- treatment through a remote evaluation and consents to proceed with the evaluation remotely. Barrie Lawson has consented to this telephone encounter. Persons Present: patient Chief Complaint/Reason: Abdominal aortic aneurysm HPI: 62 year old female who I saw in consultation regarding a AAA on 03/27/23. Since then, she underwent CTA of the A/P which demonstrated a 46mm infrarenal AAA based on cross-sectional measurements. This was similar in size to the ultrasound she had in 04/2022 which demonstrated a 4.5cm infrarenal aneurysm. She continues to denies any symptoms associated with her aneurysm including abdominal pain, back pain, flank pain, or referred pain into her groin. She is a former smoker but currently vapes. She denies any claudication, rest pain, or tissue loss. She has no anginal symptoms with exertion and denies SOB while walking up 2 flights of stairs. Data Reviewed: CTA A/P: 46 mm infrarenal aortic aneurysm with 2 right renal arteries and 2 left renal arteries. The left renal artery origins are above the aneurysm, but the lower of the 2 right renal arteries originates within the aneurysm sac. ASSESSMENT Barrie Lawson is a 62 year old female with an abdominal aortic aneurysm, which measures 46mm by cross sectional CTA. Two right renal arteries and two left renal arteries; the lower of the two RRA comes off the aneurysm sac. PLAN/RECOMMENDATIONS I had a thorough discussion with the patient regarding the imaging findings and my clinical impression. Her Ultrasound and CTA are concurrent in size. I explained the size threshold for repair in women was 5cm and while she has not shown any dramatic growth since her April ultrasound, I recommended repeat interval imaging in 6 months with another ultrasound to continue surveillance. Given the additional renal artery, she would likely benefit from an open approach with RRA re-implantation. I did not recommend a fenestrated device as the origin of the RRA is <3mm. There were no barriers to communication or education today and the patient and family know to call with any questions that may arise. Leta Malave MD Staff Surgeon, Vascular Surgery Total Time Spent: 21-30 minutes documented in this encounter [facility] 04-03-2023 Note HNO ID: [id number] Author: Dave Klein, CT Service: Radiology Author Type: Technologist Type: Progress Notes Filed: 04/03/2023 11:35 AM Note Text: Radiology Service Progress Note DATE OF SERVICE: April 03, 2023 TIME: 11:34 AM PATIENT IDENTITY VERIFICATION COMPLETED USING TWO (2) STANDARD IDENTIFIERS: Name and Date of confirmed by patient verbally. FALL SCREENING: Has the patient had 2 falls in the last year or 1 fall with injury or currently using an Ambulatory Assistive Device (Walker, Cane, Wheelchair, Crutches, etc.)? No PATIENT GENDER DATA: Female. status: : No status: NO. PATIENT RELEVANT IMPLANT DATA REVIEWED: Not Applicable ALLERGIES: Reviewed and unchanged CONTRAST ALLERGY: NO. EXAM: CT -CONTRAST INDUCED NEPHROPATHY RISK FACTORS: Not applicable CREATININE: Creatinine Date Value Ref Range Status 02/17/2023 0.78 0.58 - 0.96 mg/dL Final 11/14/2020 0.80 0.58 - 0.96 mg/dL Final Creatinine (POCT) Date Value Ref Range Status 02/17/2023 0.90 0.7 - 1.4 mg/dL Final eGFR (POCT) Date Value Ref Range Status 02/17/2023 >60 mL/min/1.73 m2 Final eGFR- Date Value Ref Range Status 11/14/2020 >60 Final P.O.C.T. RESULTS: POC done: Yes, See Lab Tab April 03, 2023 TREATMENT: N/A PERIPHERAL IV DATA: Ambulatory: A peripheral IV was started in the Right upper extremity with a Angio cath: 20 gauge. RADIOLOGY DEPARTMENT: CT; Exam(s) Completed: Chest Abdomen Pelvis and CTA CAP with AAA protocol SIGNATURE: LEONARD Felder PATIENT NAME: Barrie Lawson DATE: April 03, 2023 TIME: 11:34 AM [facility] 04-03-2023 History of Present illness Narrative Radiology Service Progress Note DATE OF SERVICE: April 03, 2023 TIME: 11:34 AM PATIENT IDENTITY VERIFICATION COMPLETED USING TWO (2) STANDARD IDENTIFIERS: Name and Date of confirmed by patient verbally. FALL SCREENING: Has the patient had 2 falls in the last year or 1 fall with injury or currently using an Ambulatory Assistive Device (Walker, Cane, Wheelchair, Crutches, etc.)? No PATIENT GENDER DATA: Female. status: : No status: NO. PATIENT RELEVANT IMPLANT DATA REVIEWED: Not Applicable ALLERGIES: Reviewed and unchanged CONTRAST ALLERGY: NO. EXAM: CT -CONTRAST INDUCED NEPHROPATHY RISK FACTORS: Not applicable CREATININE: Creatinine Date Value Ref Range Status 02/17/2023 0.78 0.58 - 0.96 mg/dL Final 11/14/2020 0.80 0.58 - 0.96 mg/dL Final Creatinine (POCT) Date Value Ref Range Status 02/17/2023 0.90 0.7 - 1.4 mg/dL Final eGFR (POCT) Date Value Ref Range Status 02/17/2023 >60 mL/min/1.73 m2 Final eGFR- Date Value Ref Range Status 11/14/2020 >60 Final P.O.C.T. RESULTS: POC done: Yes, See Lab Tab April 03, 2023 TREATMENT: N/A PERIPHERAL IV DATA: Ambulatory: A peripheral IV was started in the Right upper extremity with a Angio cath: 20 gauge. RADIOLOGY DEPARTMENT: CT; Exam(s) Completed: Chest Abdomen Pelvis and CTA CAP with AAA protocol SIGNATURE: LEONARD Felder PATIENT NAME: Barrie Lawson DATE: April 03, 2023 TIME: 11:34 AM documented in this encounter [facility] 03-27-2023 Note HNO ID: [id number] Author: Leta Malave MD Service: ? Author Type: Physician Type: Progress Notes Filed: 03/27/2023 12:07 PM Note Text: Heart , Vascular [facility] [place] DEPARTMENT OF VASCULAR SURGERY OUTPATIENT VISIT TYPE CONSULTATION PRIMARY CARE PHYSICIAN: Pascual Garibay Jr, DO REFERRING PROVIDER: SELF Consult requested for an opinion regarding the evaluation and treatment of the above. My final impression and recommendations will be communicated back to the requesting physician by way of the shared medical record or letter via US mail. CHIEF COMPLAINT AAA HISTORY OF PRESENT ILLNESS: Barrie Lawson is a 62 year old female presenting with concern for an abdominal aortic aneurysm. Ms. Lawson has known about the presence of an abdominal aortic aneurysm since last year when she had an ultrasound of the abdominal aorta that showed an aneurysm of approximately 4cm. We do not have that report readily available. She had a repeat ultrasound in 04/2022 which reported the followin.5cm x 3.8cm infrarenal aneurysm . She has not had any dedicated cross-sectional imaging of the abdominal aorta but had a chest CTA which showed no descending thoracic aorta but dilation of the aorta near the diaphragm of 3.5cm. She denies any symptoms associated with her aneurysm including abdominal pain, back pain, flank pain, or referred pain into her groin. She is a former smoker but currently vapes. She denies any claudication, rest pain, or tissue loss. She has no anginal symptoms with exertion and denies SOB while walking up 2 flights of stairs. Imaging studies: I have personally viewed the following images/data: 02/17/23: CTA Chest 3.5cm dilation of the descending thoracic aorta near the diaphragmatic hiatus Tobacco Use: .25 packs/day, for 42 years. Quit 11/23/2022. Types: Cigarettes PAST MEDICAL HISTORY Diagnosis Date AAA (abdominal aortic aneurysm) (HCC) Congestive heart failure (HCC) COPD (chronic obstructive pulmonary disease) (HCC) Diverticulosis Dyslipidemia 2019 Engages in vaping Family history of early CAD HTN (hypertension) 2019 PAST SURGICAL HISTORY Procedure Laterality Date APPENDECTOMY REMOVAL GALLBLADDER REMV CATARACT EXTRACAP,INSERT LENS Bilateral SURGERY ADD Right bunion on R foot TONSILLECTOMY HX TOTAL ABDOM HYSTERECTOMY partial FAMILY HISTORY Problem Relation Age of Onset Hypertension Mother Hyperlipidemia Mother other (kidney cancer) Mother Diabetes Mother other (Myocardial infarction) Mother Cancer Father lung No Known Problems Sister other (diverticulosis) Sister No Known Problems Sister No Known Problems Sister Systemic Lupus Erythematosus Sister Hypertension Brother Neuropathy Brother Hyperlipidemia Brother other (testicutlar cancer) Brother No Known Problems Brother Cancer Brother testicular cancer Social History Tobacco Use Smoking status: Former Packs/day: 0.25 Years: 42.00 Additional pack years: 0.00 Total pack years: 10.50 Types: Cigarettes Quit date: 11/2022 Years since quittin.3 Smokeless tobacco: Current Tobacco comments: currently vapes Vaping Use Vaping Use: current everyday user Substances: Nicotine Devices: Pre-filled or refillable cartridge, every 3 days Substance Use Topics Alcohol use: Not Currently Drug use: Never Current Outpatient Medications Medication Sig Dispense Refill pravastatin (PRAVACHOL) 20 mg tablet Take 2 tablets by mouth daily at bedtime. (Patient taking differently: Take 20 mg by mouth daily at bedtime.) 180 tablet 0 iv contrast (will be provided with radiology test) For CTA CHEST (NONGATED) W IVCON and CTA ABD/PEL W IVCON orders. No IV access, insert saline lock prior to the sedation, infusion, injection for imaging exam. Discontinue saline lock post exam. If Pt. has a central line or IVAD, may access for administration according to line specific nursing protocol. Once exam is complete flush line and de-access according to line specific nursing protocol in the CT contrast administration guidelines link. 1 Each 0 valsartan (DIOVAN) 40 mg tablet Take 1 tablet by mouth once daily. 90 tablet 3 azelastine (ASTELIN) 0.1% nasal spray once daily. ascorbic acid/collagen hydr (COLLAGEN PLUS VITAMIN C ORAL) once daily. C,E,zinc,copper 11/jphbc6n/lut (OCUVITE ADULT 50 PLUS ORAL) once daily. CALCIUM CITRATE-VITAMIN D3 ORAL once daily. FLUTICASONE PROPIONATE NASAL as needed. Olopatadine 0.2 % drop Use 1 Drop in both eyes once daily. COQ10, UBIQUINOL, ORAL once daily. Multivitamin capsule Take 1 capsule by mouth once daily. famotidine (PEPCID) 20 mg tablet Take 20 mg by mouth twice daily as needed. ibuprofen (MOTRIN) 800 mg tablet Take 800 mg by mouth three times daily as needed. No current facility-administered medications for this visit. ALLERGIES Allergen Reactions Cambodian Cockroach * Hives Apples Hives Dust (more content not included)... [facility] 03-06-2023 Miscellaneous Notes Spoke to patient spouse regarding surgical scheduling for 1st MPJ arthrodesis surgery. Patient currently being worked up by vascular for AAA and will call back once cleared for foot surgery. All questions answered. Zane Gamez RN documented in this encounter [facility] 03-03-2023 Note HNO ID: [id number] Author: Pedro Pablo Parker DPM Service: ? Author Type: Physician Type: Progress Notes Filed: 03/03/2023 5:51 PM Note Text: SERVICE DATE: March 03, 2023 PCP: Pascual Garibay Jr, DO Subjective Patient ID: Barrie is a 62 year old female. Chief Complaint: Patient presents with: Left Foot - New: Arch radiates to dorsal foot. Patient states mass at arch Right Foot - New, Pain: Right bunion pain with corn to bunion H/o right foot surgery x 2 in 90's Corns Pain Bunion PAIN EVALUATION 03/03/2023 1405 Pain Level: 5 Pain Location: Foot-Left Description: Aching Duration Amount of Time: 5 Duration Units: Years Frequency: Intermittent Comments: hx of inserts and right foot surgery in 's HPI Review of Systems Constitutional: Negative for fever. HENT: Negative for congestion. Respiratory: Negative for cough and shortness of breath. Cardiovascular: Negative for chest pain. Gastrointestinal: Negative for abdominal pain. Endocrine: Negative for diabetic associated symptoms. Skin: Negative for color change, pallor and rash. Neurological: Positive for numbness. Intermittent tingling to feet Hematological: Negative for blood/clotting disorder. Does not bruise/bleed easily. Musculoskeletal: Negative for joint swelling. ACTIVE PROBLEM LIST Essential Hypertension Tobacco Abuse Other Hyperlipidemia Chronic Diastolic Heart Failure (Hcc) History of Covid-19 Infrarenal Abdominal Aortic Aneurysm (Aaa) Without Rupture (Hcc) PAST MEDICAL HISTORY Diagnosis Date AAA (abdominal aortic aneurysm) (HCC) Congestive heart failure (HCC) COPD (chronic obstructive pulmonary disease) (HCC) Diverticulosis Dyslipidemia 2020 Engages in vaping Family history of early CAD HTN (hypertension) 2020 PAST SURGICAL HISTORY Procedure Laterality Date APPENDECTOMY REMOVAL GALLBLADDER REMV CATARACT EXTRACAP,INSERT LENS Bilateral SURGERY ADD Right bunion on R foot TONSILLECTOMY HX TOTAL ABDOM HYSTERECTOMY partial FAMILY HISTORY Problem Relation Age of Onset Hypertension Mother Hyperlipidemia Mother other (kidney cancer) Mother Diabetes Mother other (Myocardial infarction) Mother Cancer Father lung No Known Problems Sister other (diverticulosis) Sister No Known Problems Sister No Known Problems Sister Systemic Lupus Erythematosus Sister Hypertension Brother Neuropathy Brother Hyperlipidemia Brother other (testicutlar cancer) Brother No Known Problems Brother Cancer Brother testicular cancer Social History Tobacco Use Smoking status: Former Packs/day: 0.25 Years: 42.00 Additional pack years: 0.00 Total pack years: 10.50 Types: Cigarettes Quit date: 11/2022 Years since quittin.2 Smokeless tobacco: Current Tobacco comments: currently vapes Vaping Use Vaping Use: current everyday user Substances: Nicotine Devices: Pre-filled or refillable cartridge, every 3 days Substance Use Topics Alcohol use: Not Currently Drug use: Never ALLERGIES Allergen Reactions Cambodian Cockroach * Hives Apples Hives Dust Mites Hives Fish Containing Pro* Other: See Comments Allergy to Cod/flounder/halibut Grass Pollen-Kentuc* Intolerance Tree Pollen-Edwar* Intolerance [place] Pollen-Kochia * Intolerance [place] Pollen-Western* Other: See Comments Wheat Other: See Comments Wheat Pollen And Whole Grain MEDICATIONS: pravastatin (PRAVACHOL) 20 mg tablet Take 2 tablets by mouth daily at bedtime. valsartan (DIOVAN) 40 mg tablet Take 1 tablet by mouth once daily. azelastine (ASTELIN) 0.1% nasal spray once daily. ascorbic acid/collagen hydr (COLLAGEN PLUS VITAMIN C ORAL) once daily. C,E,zinc,copper 11/rxvbu1y/lut (OCUVITE ADULT 50 PLUS ORAL) once daily. CALCIUM CITRATE-VITAMIN D3 ORAL once daily. FLUTICASONE PROPIONATE NASAL as needed. Olopatadine 0.2 % drop Use 1 Drop in both eyes once daily. COQ10, UBIQUINOL, ORAL once daily. Multivitamin capsule Take 1 capsule by mouth once daily. famotidine (PEPCID) 20 mg tablet Take 20 mg by mouth twice daily as needed. ibuprofen (MOTRIN) 800 mg tablet Take 800 mg by mouth three times daily as needed. Allergies, medications, past surgical history, family history and past medical history were reviewed per this encounter. Physical Exam: There were no vitals taken for this visit. Patient is alert and oriented x 3 in NAD Patient's general mood is good. Eyes are without evidence of conjunctivitis or jaundice Respiration is normal and non-labored. Patient ambulated into the office treatment room. Vascular: Palpable Dorsalis Pedis and Posterior Tibial Pulses b/l Skin temperature warm to warm tibial tuberosity to the digits Neurological: Intact light touch/epicritic sensation Dermatological: Skin appears well hydrated and supple. good color, texture, turgor. No open lesions present. +hyperkeratosis with a central core noted to the medial 1s (more content not included)... [facility] 03-03-2023 Instructions Pedro Pablo Parker DPM - 03/03/2023 2:42 PM EDT [place] Please call one of these phone numbers to make an appointment for your ultrasound appointment. [place]: [phone] [facility], [address]: [phone] [place]: [phone] ext. [phone] PLANTAR FIBROMA 1. Steroid injection therapy under ultrasound 2. Topical verapamil cream 3. Offloading with pads/orthotics 4. Surgical excision 5. Tenex 6. Extracorporeal shockwave therapy 7. Radiation therapy 1st metatarsophalangeal arthrodesis Your surgical recovery will involve 2 weeks of not getting your foot wet while your sutures are intact. You will be heel-weight bearing to the operative foot for 6 weeks (offloading can be achieved using crutches, knee walker, or a walker). XRs are taken at the 6 week paul to evaluate bone healing and if sufficient, walking in a shoe provided is performed for 4 weeks. At the 10 week paul a repeat XR is then performed and transition into normal shoes and activities is performed. documented in this encounter [facility] 03-03-2023 Note HNO ID: [id number] Author: Michael Shen RT(Cathleen) Service: Radiology Author Type: Technologist Type: Progress Notes Filed: 03/03/2023 1:15 PM Note Text: Radiology Service Progress Note PATIENT NAME: Barrie Lawson DATE OF SERVICE: March 03, 2023 TIME: 1:15 PM PATIENT IDENTITY VERIFICATION COMPLETED USING TWO (2) IDENTIFIERS: Name and Date of confirmed by patient verbally. FALL SCREENING: Has the patient had 2 falls in the last year or 1 fall with injury or currently using an Ambulatory Assistive Device (Walker, Cane, Wheelchair, Crutches, etc.)? No PATIENT GENDER DATA: Female. status: : No status: NO. PATIENT RELEVANT IMPLANT DATA REVIEWED: Not Applicable RADIOLOGY DEPARTMENT: General X-ray: Exam(s) Completed: Lower Extremity X-Ray(s): Foot, Bilateral and Wt. Bearing PERIPHERAL IV DATA: Not applicable SIGNED BY: RT Wilbert(R) March 03, 2023 1:15 PM [facility] 03-03-2023 History of Present illness Narrative SERVICE DATE: March 03, 2023 PCP: Pascual Garibay Jr, DO Subjective Patient ID: Barrie is a 62 year old female. Chief Complaint: Patient presents with: Left Foot - New: Arch radiates to dorsal foot. Patient states mass at arch Right Foot - New, Pain: Right bunion pain with corn to bunion H/o right foot surgery x 2 in 's Corns Pain Bunion PAIN EVALUATION 03/03/2023 1405 Pain Level: 5 Pain Location: Foot-Left Description: Aching Duration Amount of Time: 5 Duration Units: Years Frequency: Intermittent Comments: hx of inserts and right foot surgery in HPI Review of Systems Constitutional: Negative for fever. HENT: Negative for congestion. Respiratory: Negative for cough and shortness of breath. Cardiovascular: Negative for chest pain. Gastrointestinal: Negative for abdominal pain. Endocrine: Negative for diabetic associated symptoms. Skin: Negative for color change, pallor and rash. Neurological: Positive for numbness. Intermittent tingling to feet Hematological: Negative for blood/clotting disorder. Does not bruise/bleed easily. Musculoskeletal: Negative for joint swelling. ACTIVE PROBLEM LIST Essential Hypertension Tobacco Abuse Other Hyperlipidemia Chronic Diastolic Heart Failure (Hcc) History of Covid-19 Infrarenal Abdominal Aortic Aneurysm (Aaa) Without Rupture (Hcc) PAST MEDICAL HISTORY Diagnosis Date AAA (abdominal aortic aneurysm) (HCC) Congestive heart failure (HCC) COPD (chronic obstructive pulmonary disease) (HCC) Diverticulosis Dyslipidemia 2020 Engages in vaping Family history of early CAD HTN (hypertension) 2020 PAST SURGICAL HISTORY Procedure Laterality Date APPENDECTOMY REMOVAL GALLBLADDER REMV CATARACT EXTRACAP,INSERT LENS Bilateral SURGERY ADD Right bunion on R foot TONSILLECTOMY HX TOTAL ABDOM HYSTERECTOMY partial FAMILY HISTORY Problem Relation Age of Onset Hypertension Mother Hyperlipidemia Mother other (kidney cancer) Mother Diabetes Mother other (Myocardial infarction) Mother Cancer Father lung No Known Problems Sister other (diverticulosis) Sister No Known Problems Sister No Known Problems Sister Systemic Lupus Erythematosus Sister Hypertension Brother Neuropathy Brother Hyperlipidemia Brother other (testicutlar cancer) Brother No Known Problems Brother Cancer Brother testicular cancer Social History Tobacco Use Smoking status: Former Packs/day: 0.25 Years: 42.00 Additional pack years: 0.00 Total pack years: 10.50 Types: Cigarettes Quit date: 11/2022 Years since quittin.2 Smokeless tobacco: Current Tobacco comments: currently vapes Vaping Use Vaping Use: current everyday user Substances: Nicotine Devices: Pre-filled or refillable cartridge, every 3 days Substance Use Topics Alcohol use: Not Currently Drug use: Never ALLERGIES Allergen Reactions Camb[place]ian Cockroach * Hives Apples Hives Dust Mites Hives Fish Containing Pro* Other: See Comments Allergy to Cod/flounder/halibut Grass Pollen-K[place]uc* Intolerance Tree Pollen-[place]* Intolerance [place] Pollen-Kochia * Intolerance [place] Pollen-Western* Other: See Comments Wheat Other: See Comments Wheat Pollen And Whole Grain MEDICATIONS: pravastatin (PRAVACHOL) 20 mg tablet Take 2 tablets by mouth daily at bedtime. valsartan (DIOVAN) 40 mg tablet Take 1 tablet by mouth once daily. azelastine (ASTELIN) 0.1% nasal spray once daily. ascorbic acid/collagen hydr (COLLAGEN PLUS VITAMIN C ORAL) once daily. C,E,zinc,copper 11/edvwc3z/lut (OCUVITE ADULT 50 PLUS ORAL) once daily. CALCIUM CITRATE-VITAMIN D3 ORAL once daily. FLUTICASONE PROPIONATE NASAL as needed. Olopatadine 0.2 % drop Use 1 Drop in both eyes once daily. COQ10, UBIQUINOL, ORAL once daily. Multivitamin capsule Take 1 capsule by mouth once daily. famotidine (PEPCID) 20 mg tablet Take 20 mg by mouth twice daily as needed. ibuprofen (MOTRIN) 800 mg tablet Take 800 mg by mouth three times daily as needed. Allergies, medications, past surgical history, family history and past medical history were reviewed per this encounter. Physical Exam: There were no vitals taken for this visit. Patient is alert and oriented x 3 in NAD Patient's general mood is good. Eyes are without evidence of conjunctivitis or jaundice Respiration is normal and non-labored. Patient ambulated into the office treatment room. Vascular: Palpable Dorsalis Pedis and Posterior Tibial Pulses b/l Skin temperature warm to warm tibial tuberosity to the digits Neurological: Intact light touch/epicritic sensation Dermatological: Skin appears well hydrated and supple. good color, texture, turgor. No open lesions present. +hyperkeratosis with a central core noted to the medial 1st met head R Webspaces clean and dry 1-4 Nails 1-5 b/l appear normal. Firm nodule noted to the medial band of the L foot plantar fascia centrally approximately 2.0cm in diameter. Musculoskeletal/Orthopaedic: +5/5 muscle strength Dorsiflexion, Plantarflexion, Inversion, Eversion Reducible lesser digital contractures R R hallux dorsally dislocated on 1st met, non-reducible and painful with attempted reduction Radiographs: osteopenia noted to the R hallux likely due to decreased bone density Last XR Foot - Impression Only XR FOOT GENERAL 3V AP/LAT/OBL BILATERAL Exam End: 03/03/2023 1:16 PM (Final result) Impression: IMPRESSION: LIMITED ASSESSMENT PARTICULARLY OF THE RIGHT GREAT TOE WITH NONSPECIFIC FINDINGS ABOVE. NO DEFINITE ACUTE FINDINGS. POSTOPERATIVE AND DEGENERATIVE CHANGES. CHRONIC EROSION OF THE LEFT BUNION LIKELY EITHER FROM AN ADJACENT GANGLION OR REMOTE GOUT. Contact Center Team Lead: CHIQUI Transcribe Date/Time: Mar 03 2023 2:07P... ASSESSMENT: 1. Dislocated toe, right, initial encounter - ICD9: 838.09, ICD10: S93.104A (primary diagnosis) 2. Pain - ICD9: 780.96, ICD10: R52 3. Plantar fascial fibromatosis - ICD9: 728.71, ICD10: M72.2 4. Acquired hallux valgus of right foot - ICD9: 735.0, ICD10: M20.11 5. 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 History of foot surgery - ICD9: V15.29, ICD10: Z98.890 Plan: - Initial Office Visit - Pedal exam - US evaluation of L foot fibroma - Etiology and treatment options were discussed with the patient. - discussed 1st MPJ arthrodesis r/b/c/a/p R foot; defer lesser digital sx due to lack of symptoms. Recommended d/c vaping due to increased complication risk. Discussed possible bone stim due to osteopenia noted on radiographs of the R hallux - Discussed supportive shoes and orthotics Orders Placed This Encounter XR FOOT GENERAL 3V AP/LAT/OBL BILAT Standing Status: Future Number of Occurrences: 1 Standing Expiration Date: 04/01/2024 US FOOT LEFT Order Comments: Plantar fibroma Standing Status: Future Standing Expiration Date: 04/01/2024 Order Specific Question: Region of Interest: Answer: Plantar Fascia - Homegoing instructions RTC prn surgery SIGNATURE: Pedro Pablo Parker DPM PATIENT NAME: Barrie Lawson DATE: March 03, 2023 TIME: 2:02 PM documented in this encounter [facility] 02-26-2023 Note Patient Outreach (PU LMMN) BARRIE LAWSON ([id number]) 1960 F Date Time Provider Department 02/26/23 ROSIE VALDES During your visit today, we recorded the following information about you: Rosie Valdes 02/26/2023 7:45 AM Signed Incidental Lung Nodule Enrollment Outreach attempt: 1st Attempt Outreach status: Complete Enrolled in Lung Nodule program: No Declined reason: Finding reviewed deemed low risk. No further work up recommended at this time. Letter/brochure notifying patient sent to patient?s home mailing address. Lung Nodule outreach: No outreach - Very small nodule, letter and brochure sent Lung Nodule Program Location: [facility] As of Date: 02/26/2023 Noted Allergy Reaction KAZAKH COCKROACH ALLERGENIC EXT*07/07/2020 4 - Hives APPLES 07/07/2020 4 - Hives DUST MITES 07/07/2020 4 - Hives FISH CONTAINING PRODUCTS 07/07/2020 14 - Other: See Comments Comments: Allergy to Cod/flounder/halibut GRASS POLLEN-[place] BLUE, STAND*07/07/2020 5 - Intolerance TREE POLLEN-KAZAKH ELM 07/07/2020 5 - Intolerance WEED POLLEN-KOCHIA (FIREBUSH) 07/07/2020 5 - Intolerance WEED POLLEN-WESTERN RAGWEED 07/07/2020 14 - Other: See Comments WHEAT 07/07/2020 14 - Other: See Comments Comments: Wheat Pollen And Whole Grain Date Reviewed: 02/17/2023 Reviewed by: Chris Argueta MA - Fully Assessed Prescriptions as of 02/26/2023 - pravastatin (PRAVACHOL) 20 mg tablet Take 2 tablets by mouth daily at bedtime. - valsartan (DIOVAN) 40 mg tablet Take 1 tablet by mouth once daily. - azelastine (ASTELIN) 0.1% nasal spray once daily. - ascorbic acid/collagen hydr (COLLAGEN PLUS VITAMIN C ORAL) once daily. - C,E,zinc,copper 11/kjydz7u/lut (OCUVITE ADULT 50 PLUS ORAL) once daily. - CALCIUM CITRATE-VITAMIN D3 ORAL once daily. - FLUTICASONE PROPIONATE NASAL as needed. - Olopatadine 0.2 % drop Use 1 Drop in both eyes once daily. - COQ10, UBIQUINOL, ORAL once daily. - Multivitamin capsule Take 1 capsule by mouth once daily. - famotidine (PEPCID) 20 mg tablet Take 20 mg by mouth twice daily as needed. - ibuprofen (MOTRIN) 800 mg tablet Take 800 mg by mouth three times daily as needed. Problem List As Of Date 02/26/2023 Noted Resolved Essential hypertension [I10] 07/07/2020 Tobacco abuse [Z72.0] 07/07/2020 Other hyperlipidemia [E78.49] 07/07/2020 Chronic diastolic heart failure (HCC) [I50.32] 07/25/2020 History of COVID-19 [Z86.16] 11/14/2020 Infrarenal abdominal aortic aneurysm (AAA) with*12/30/2022 Encounter Status:Closed by ROSIE VALDES on 02/26/23 [facility] 02-26-2023 Note HNO ID: [id number] Author: Rosie Valdes Service: ? Author Type: ? Type: Progress Notes Filed: 02/26/2023 7:45 AM Note Text: Incidental Lung Nodule Enrollment Outreach attempt: 1st Attempt Outreach status: Complete Enrolled in Lung Nodule program: No Declined reason: Finding reviewed deemed low risk. No further work up recommended at this time. Letter/brochure notifying patient sent to patient?s home mailing address. Lung Nodule outreach: No outreach - Very small nodule, letter and brochure sent Lung Nodule Program [place] [facility] [place] History of Present illness Narrative Incidental Lung Nodule Enrollment Outreach attempt: 1st Attempt Outreach status: Complete Enrolled in Lung Nodule program: No Declined reason: Finding reviewed deemed low risk. No further work up recommended at this time. Letter/brochure notifying patient sent to patient s home mailing address. Lung Nodule outreach: No outreach - Very small nodule, letter and brochure sent Lung Nodule Program Location: [place] documented in this encounter [facility] 02-24-2023 Note HNO ID: [id number] Author: Cody Reynaga MD Service: ? Author Type: Physician Type: Progress Notes Filed: 02/24/2023 9:19 AM Note Text: Heart, Vascular and Thoracic [place] DEPARTMENT OF CARDIAC SURGERY OUTPATIENT VISIT DATE OUTPATIENT VISIT PCP: Pascual Garibay Jr, DO ([facility]) [address] [address] Referring Physician: SELF Patient Type: New Visit to Determine Surgery: Yes HPI: Ms. Barrie Lawson is a 62 year old female seen regarding candidacy for cardiac surgery. She is currently asymptomatic Comorbidities include PAST MEDICAL HISTORY Diagnosis Date AAA (abdominal aortic aneurysm) (HCC) Congestive heart failure (HCC) COPD (chronic obstructive pulmonary disease) (HCC) Diverticulosis Dyslipidemia 2019 Engages in vaping Family history of early CAD HTN (hypertension) 2019 I have personally reviewed and analyzed all records that pertain to the patient's prior course in addition to the following studies: CT scan and TTE. Last CT Result Conclusion CTA CHEST (GATED) W IVCON Exam End: 02/17/2023 11:12 AM (Final result) Impression: IMPRESSION: 1. Dilation of the distal descending thoracic aorta just proximal to the diaphragmatic hiatus, measuring 3.5 cm in diameter. The remainder of the thoracic aorta is normal in course and caliber. 2. Moderate upper lobe predominant centrilobular and paraseptal emphysema. 3. Small (< 6 mm) pulmonary nodules as described. Incidental Finding: Follow-up Acuity: Incidental Finding: Solid: <6 mm (solitary or multiple) Routing Code: N/A Recommendation: No imaging follow-up is recommended Time Frame: N/A Comments: If there are risk factors for lung malignancy, a follow-up chest CT exam could be obtained in 12 months --END OF FINDING-- Contact Center Team Lead: CHIQUI Transcribe Date/Time: Feb 17 2023 11:35A Dictated by : JUNIOR URIBE MD This examination was interpreted and the report reviewed and electronically signed by: MOJGAN PUENTES MD on Feb 17 2023 2:38PM EST Last ECHO Result Conclusion ECHO Collected: 02/17/2023 9:18 AM (Final result) Impression: CONCLUSIONS: - Technically difficult exam due to body habitus. - Exam indication: AAA - The left ventricle is normal in size. Left ventricular systolic function is normal. EF = 56 ? 5% (2D biplane) Grade I left ventricular diastolic dysfunction. - The right ventricle is normal in size. Right ventricular systolic function is normal. - Exam was compared with the prior echocardiographic exam performed on 11/14/2020, similar findings. * * * Final * * * Impression: No evidence of thoracic aortic aneurysm disease Plan: Refer to Vascular Surgery to eval infra-renal aorta These findings will be communicated back to the requesting physician via electronic medical record Cody Reynaga MD [facility] 02-19-2023 Note HNO ID: [id number] Author: Pa Albert APRN.[employer]STATE LEASING AGENT Service: ? Author Type: Nurse Practitioner Type: Progress Notes Filed: 02/19/2023 5:00 PM Note Text: Incidental Lung Nodule Enrollment Outreach attempt: 1st Attempt Outreach status: Complete Enrolled in Lung Nodule program: Referred Lung Nodule outreach: No outreach - Very small nodule, letter and brochure sent Lung Nodule Program Location: [facility] 02-19-2023 Note Patient Outreach (PM NA11) BARRIE LAWSON ([id number]) 1960 F Date Time Provider Department 02/19/23 PA ALBERT PMNA11 During your visit today, we recorded the following information about you: Pa Albert APRN.SANDIP 02/19/2023 5:00 PM Signed Incidental Lung Nodule Enrollment Outreach attempt: 1st Attempt Outreach status: Complete Enrolled in Lung Nodule program: Referred Lung Nodule outreach: No outreach - Very small nodule, letter and brochure sent Lung Nodule Program Location: [place] Allergies As of Date: 02/19/2023 Noted Allergy Reaction KAZAKH COCKROACH ALLERGENIC EXT*07/07/2020 4 - Hives APPLES 07/07/2020 4 - Hives DUST MITES 07/07/2020 4 - Hives FISH CONTAINING PRODUCTS 07/07/2020 14 - Other: See Comments Comments: Allergy to Cod/flounder/halibut GRASS POLLEN-RHONDA BLUE, STAND*07/07/2020 5 - Intolerance TREE POLLEN-KAZAKH ELM 07/07/2020 5 - Intolerance WEED POLLEN-KOCHIA (FIREBUSH) 07/07/2020 5 - Intolerance WEED POLLEN-WESTERN RAGWEED 07/07/2020 14 - Other: See Comments WHEAT 07/07/2020 14 - Other: See Comments Comments: Wheat Pollen And Whole Grain Date Reviewed: 02/17/2023 Reviewed by: Chris Argueta MA - Fully Assessed Primary Visit Diagnosis:Lung nodule [R91.1] Prescriptions as of 02/19/2023 - pravastatin (PRAVACHOL) 20 mg tablet Take 2 tablets by mouth daily at bedtime. - valsartan (DIOVAN) 40 mg tablet Take 1 tablet by mouth once daily. - azelastine (ASTELIN) 0.1% nasal spray once daily. - ascorbic acid/collagen hydr (COLLAGEN PLUS VITAMIN C ORAL) once daily. - C,E,zinc,copper 11/keerl2f/lut (OCUVITE ADULT 50 PLUS ORAL) once daily. - CALCIUM CITRATE-VITAMIN D3 ORAL once daily. - FLUTICASONE PROPIONATE NASAL as needed. - Olopatadine 0.2 % drop Use 1 Drop in both eyes once daily. - COQ10, UBIQUINOL, ORAL once daily. - Multivitamin capsule Take 1 capsule by mouth once daily. - famotidine (PEPCID) 20 mg tablet Take 20 mg by mouth twice daily as needed. - ibuprofen (MOTRIN) 800 mg tablet Take 800 mg by mouth three times daily as needed. Problem List As Of Date 02/19/2023 Noted Resolved Essential hypertension [I10] 07/07/2020 Tobacco abuse [Z72.0] 07/07/2020 Other hyperlipidemia [E78.49] 07/07/2020 Chronic diastolic heart failure (HCC) [I50.32] 07/25/2020 History of COVID-19 [Z86.16] 11/14/2020 Infrarenal abdominal aortic aneurysm (AAA) with*12/30/2022 Letter Text Letter Text Encounter Status:Closed by PA ALBERT on 02/19/23 [facility] 02-17-2023 Note HNO ID: [id number] Author: Kathryn Mercado MD Service: ? Author Type: Physician Type: Progress Notes Filed: 04/07/2023 9:31 AM Note Text: Heart and Vascular [place] [facility] Department of Cardiovascular Medicine SECTION OF INTERVENTIONAL CARDIOLOGY OUTPATIENT VISIT DATE February 17 2023 OUTPATIENT VISIT TYPE NEW PRIMARY CARE PHYSICIAN: Pascual Garibay Jr, DO ([facility]) [address] [address] PRIMARY PAINTING INSTRUCTOR: Dr. Jamila Acosta REFERRING PHYSICIAN: Cody Reynaga [address] [facility] [address] CHIEF COMPLAINT: Abd aortic aneurysm HISTORY OF PRESENT ILLNESS: Ms. Lawson is a 62 year old female who presents today for pre-op assessment of desc thoracic and abd aortic aneurysm surgery. No history of coronary disease. Some chest pain in the past, though not typical of angina. FUENTES which has been stable - COPD and/or chronic diastolic heart failure. FUENTES class 2. No orthopnea or PND. NURSING INTAKE: Past medical history includes: AAA distal 4.5cm, COPD, chronic diastolic HF, past smoking, current vaping, HLD, Pt reports AAA has enlarged and comes for evaluation She reports chest pain in past but none recently, never had coronary angiogram this would be associated with palpiatoins which she reports she has not had in a while She notes SOB with 1 flight of stairs which is unchanged No orhtpnea, pND She notes slight LE edema She deneis synocpe, CVA or TIa She stopped smoking and she currently vapes 11/14/2020 TTE (syngo): CONCLUSIONS: - Exam indication: Re-evaluation of known Heart Failure with a change in clinical status with a clear precipitating change in med/diet - The left ventricle is normal in size. Left ventricular systolic function is normal. EF = 60 ? 5% (2D biplane) - The right ventricle is normal in size. Right ventricular systolic function is normal. - The patient has not had a prior CC echocardiographic exam for comparison. 05/21/2022 ABD US: 11/30/2022: LDL 90 HDL 38 TRIG 170 CHOL 157 02/17/23 Creat 0.90 GFR > 60 Diek Nutrition: None Weight: no change since last visit Exercise: Walks daily at work PAST MEDICAL HISTORY Diagnosis Date AAA (abdominal aortic aneurysm) (HCC) Congestive heart failure (HCC) Diverticulosis Dyslipidemia PAST SURGICAL HISTORY Procedure Laterality Date APPENDECTOMY REMOVAL GALLBLADDER REMV CATARACT EXTRACAP,INSERT LENS Bilateral SURGERY ADD Right bunion on R foot TONSILLECTOMY HX SOCIAL HISTORY Social History Tobacco Use Smoking status: Every Day Packs/day: 0.25 Years: 42.00 Additional pack years: 0.00 Total pack years: 10.50 Types: Cigarettes Smokeless tobacco: Current Tobacco comments: currently vapes Substance Use Topics Alcohol use: Not Currently Drug use: Never FAMILY HISTORY Problem Relation Age of Onset Hypertension Mother Hyperlipidemia Mother other (kidney cancer) Mother Cancer Father lung Hypertension Brother Neuropathy Brother No Known Problems Sister No Known Problems Brother Cancer Brother testicular cancer other (diverticulosis) Sister No Known Problems Sister No Known Problems Sister Systemic Lupus Erythematosus Sister ALLERGIES: ALLERGIES Allergen Reactions Cambodian Cockroach * Hives Apples Hives Dust Mites Hives Fish Containing Pro* Other: See Comments Allergy to Cod/flounder/halibut Grass Pollen-Kentuc* Intolerance Tree Pollen-Edwar* Intolerance [place] Pollen-Kochia * Intolerance [place] Pollen-Western* Other: See Comments Wheat Other: See Comments Wheat Pollen And Whole Grain MEDICATIONS: buPROPion XL (WELLBUTRIN XL) 150 mg 24 hr tablet JARDIANCE 25 mg tablet Take 25 mg by mouth every morning. fluconazole (DIFLUCAN) 100 mg tablet Take 100 mg by mouth one time a week. valsartan (DIOVAN) 40 mg tablet Take 1 tablet by mouth once daily. pravastatin (PRAVACHOL) 20 mg tablet 20 mg daily at bedtime. azelastine (ASTELIN) 0.1% nasal spray once daily. ascorbic acid/collagen hydr (COLLAGEN PLUS VITAMIN C ORAL) once daily. C,E,zinc,copper 11/etiia1m/lut (OCUVITE ADULT 50 PLUS ORAL) once daily. CALCIUM CITRATE-VITAMIN D3 ORAL once daily. FLUTICASONE PROPIONATE NASAL as needed. plhmf-jvggc-9-qms-egg-dldwoa (KRILL OIL) 810-21-29-50 mg cap once daily. Olopatadine 0.2 % drop once daily. COQ10, UBIQUINOL, ORAL once daily. Vitamin E, dl, acetate, (VITAMIN E) 400 unit capsule once daily. chrom fadia/brindal abebe (GARCINIA CAMBOGIA ORAL) Take by mouth once daily. Multivitamin capsule Take 1 capsule by mouth once daily. famotidine (PEPCID) 20 mg tablet Take 20 mg by mouth once daily. ibuprofen (MOTRIN) 800 mg tablet Take 800 mg by mouth three times daily as needed. REVIEW OF SYSTEMS: GENERAL: no fever, no chills, and no change in weight + COVID RX paxlovid 01/15 HEENT: no headaches, no difficulty swa (more content not included)... [facility] 02-17-2023 Note HNO ID: [id number] Author: Sobia Domingo RN Service: Radiology Author Type: Registered Nurse Type: Progress Notes Filed: 02/17/2023 10:54 AM Note Text: Radiology Service Progress Note DATE OF SERVICE: February 17, 2023 TIME: 10:47 AM PATIENT WEIGHT: 130 LBS PATIENT IDENTITY VERIFICATION COMPLETED USING TWO (2) STANDARD IDENTIFIERS: Name and Date of confirmed by patient verbally and Name and Date of confirmed by identification band. FALL SCREENING: Has the patient had 2 falls in the last year or 1 fall with injury or currently using an Ambulatory Assistive Device (Walker, Cane, Wheelchair, Crutches, etc.)? No PATIENT GENDER DATA: Female. status: : No status: NO. ALLERGIES: Reviewed and unchanged CONTRAST ALLERGY: No EXAM: CT -CONTRAST INDUCED NEPHROPATHY RISK FACTORS: Patient age > 60 years and Congestive Heart Failure (CHF) CREATININE: Creatinine Date Value Ref Range Status 11/14/2020 0.80 0.58 - 0.96 mg/dL Final 07/07/2020 0.74 0.58 - 0.96 mg/dL Final Creatinine (POCT) Date Value Ref Range Status 02/17/2023 0.90 0.7 - 1.4 mg/dL Final eGFR (POCT) Date Value Ref Range Status 02/17/2023 >60 mL/min/1.73 m2 Final eGFR- Date Value Ref Range Status 11/14/2020 >60 Final P.O.C.T. RESULTS: POC done: Yes, See Lab Tab February 17, 2023 TREATMENT: No Hydration needed. IV SITE: Ambulatory: A peripheral IV was started in the Left antecubital site with a Angio cath: 20 gauge. and A Saline lock was inserted per protocol IV SITE APPEARANCE: Clean,Dry and Intact SIGNATURE: Sobia Domingo RN PATIENT NAME: Barrie Lawson DATE: February 17, 2023 TIME: 10:47 AM [facility] 02-17-2023 Note HNO ID: [id number] Author: Paul Calderón RT(R) Service: Radiology Author Type: Technologist Type: Progress Notes Filed: 02/17/2023 11:07 AM Note Text: Radiology Service Progress Note PATIENT NAME: Barrie Lawson DATE OF SERVICE: February 17, 2023 TIME: 11:04 AM PATIENT IDENTITY VERIFICATION COMPLETED USING TWO (2) IDENTIFIERS: Name and Date of confirmed by patient verbally and Name and Date of confirmed by identification band. FALL SCREENING: Has the patient had 2 falls in the last year or 1 fall with injury or currently using an Ambulatory Assistive Device (Walker, Cane, Wheelchair, Crutches, etc.)? No PATIENT GENDER DATA: Female. status: : No status: NO. PATIENT RELEVANT IMPLANT DATA REVIEWED: Yes RADIOLOGY DEPARTMENT: CT; Exam(s) Completed: Cardiac PERIPHERAL IV DATA: Site assessment: Clean,Dry and Intact, Site disposition Discontinued SIGNED BY: RT Adela(R) February 17, 2023 11:04 AM [facility] 02-17-2023 History of Present illness Narrative Images from the original note were not included. Heart and Vascular [place] [facility] Department of Cardiovascular Medicine SECTION OF INTERVENTIONAL CARDIOLOGY OUTPATIENT VISIT DATE February 17 2023 OUTPATIENT VISIT TYPE NEW PRIMARY CARE PHYSICIAN: Pascual Garibay Jr, DO ([facility]) [address] [facility] [address] [place] [address] PRIMARY PAINTING INSTRUCTOR: Dr. Jamila Acosta REFERRING PHYSICIAN: Cody Reynaga [address] [facility] [address] CHIEF COMPLAINT: Abd aortic aneurysm HISTORY OF PRESENT ILLNESS: Ms. Lawson is a 62 year old female who presents today for pre-op assessment of desc thoracic and abd aortic aneurysm surgery. No history of coronary disease. Some chest pain in the past, though not typical of angina. FUENTES which has been stable - COPD and/or chronic diastolic heart failure. FUENTES class 2. No orthopnea or PND. NURSING INTAKE: Past medical history includes: AAA distal 4.5cm, COPD, chronic diastolic HF, past smoking, current vaping, HLD, Pt reports AAA has enlarged and comes for evaluation She reports chest pain in past but none recently, never had coronary angiogram this would be associated with palpiatoins which she reports she has not had in a while She notes SOB with 1 flight of stairs which is unchanged No orhtpnea, pND She notes slight LE edema She deneis synocpe, CVA or TIa She stopped smoking and she currently vapes 11/14/2020 TTE (syngo): CONCLUSIONS: - Exam indication: Re-evaluation of known Heart Failure with a change in clinical status with a clear precipitating change in med/diet - The left ventricle is normal in size. Left ventricular systolic function is normal. EF = 60 5% (2D biplane) - The right ventricle is normal in size. Right ventricular systolic function is normal. - The patient has not had a prior CC echocardiographic exam for comparison. 05/21/2022 ABD US: 11/30/2022: LDL 90 HDL 38 TRIG 170 CHOL 157 02/17/23 Creat 0.90 GFR > 60 Diek Nutrition: None Weight: no change since last visit Exercise: Walks daily at work PAST MEDICAL HISTORY Diagnosis Date AAA (abdominal aortic aneurysm) (HCC) Congestive heart failure (HCC) Diverticulosis Dyslipidemia PAST SURGICAL HISTORY Procedure Laterality Date APPENDECTOMY REMOVAL GALLBLADDER REMV CATARACT EXTRACAP,INSERT LENS Bilateral SURGERY ADD Right bunion on R foot TONSILLECTOMY HX SOCIAL HISTORY Social History Tobacco Use Smoking status: Every Day Packs/day: 0.25 Years: 42.00 Additional pack years: 0.00 Total pack years: 10.50 Types: Cigarettes Smokeless tobacco: Current Tobacco comments: currently vapes Substance Use Topics Alcohol use: Not Currently Drug use: Never FAMILY HISTORY Problem Relation Age of Onset Hypertension Mother Hyperlipidemia Mother other (kidney cancer) Mother Cancer Father lung Hypertension Brother Neuropathy Brother No Known Problems Sister No Known Problems Brother Cancer Brother testicular cancer other (diverticulosis) Sister No Known Problems Sister No Known Problems Sister Systemic Lupus Erythematosus Sister ALLERGIES: ALLERGIES Allergen Reactions Cambodian Cockroach * Hives Apples Hives Dust Mites Hives Fish Containing Pro* Other: See Comments Allergy to Cod/flounder/halibut Grass Pollen-Kentuc* Intolerance Tree Pollen-Edwar* Intolerance [place] Pollen-Kochia * Intolerance [place] Pollen-Western* Other: See Comments Wheat Other: See Comments Wheat Pollen And Whole Grain MEDICATIONS: buPROPion XL (WELLBUTRIN XL) 150 mg 24 hr tablet JARDIANCE 25 mg tablet Take 25 mg by mouth every morning. fluconazole (DIFLUCAN) 100 mg tablet Take 100 mg by mouth one time a week. valsartan (DIOVAN) 40 mg tablet Take 1 tablet by mouth once daily. pravastatin (PRAVACHOL) 20 mg tablet 20 mg daily at bedtime. azelastine (ASTELIN) 0.1% nasal spray once daily. ascorbic acid/collagen hydr (COLLAGEN PLUS VITAMIN C ORAL) once daily. C,E,zinc,copper 11/ptxdw1y/lut (OCUVITE ADULT 50 PLUS ORAL) once daily. CALCIUM CITRATE-VITAMIN D3 ORAL once daily. FLUTICASONE PROPIONATE NASAL as needed. zrmue-zimij-6-uan-cxl-dglgaw (KRILL OIL) 431-67-74-50 mg cap once daily. Olopatadine 0.2 % drop once daily. COQ10, UBIQUINOL, ORAL once daily. Vitamin E, dl, acetate, (VITAMIN E) 400 unit capsule once daily. chrom fadia/brindal abebe (GARCINIA CAMBOGIA ORAL) Take by mouth once daily. Multivitamin capsule Take 1 capsule by mouth once daily. famotidine (PEPCID) 20 mg tablet Take 20 mg by mouth once daily. ibuprofen (MOTRIN) 800 mg tablet Take 800 mg by mouth three times daily as needed. REVIEW OF SYSTEMS: GENERAL: no fever, no chills, and no change in weight + COVID RX paxlovid 01/15 HEENT: no headaches, no difficulty swallowing, dentures SKIN: no rashes and no ulcers RESPIRATORY: no orthopnea, no paroxysmal nocturnal dyspnea, shortness of breath, dyspnea on exertion, and COPD CARDIOVASCULAR: no dizziness, no syncope, no claudication, and See HPI GASTROINTESTINAL: no abdominal pain, no nausea, no vomiting, and no melanotic stools GENITOURINARY: no dysuria MUSCULOSKELETAL: no joint pain, no muscle pain or myalgias, and Feet pain ? arthritis NEUROLOGIC: numbness and tingling HEMATOLOGY: no bruising easily, no anemia, and no cancer ENDOCRINE: no diabetes and no thyroid disease PSYCH: no sleep disturbance PHYSICAL EXAMINATION: BP 137/81 Pulse 66 Ht 5' 3.5 (1.61m) Wt 129 lb 4.8 oz (58.7kg) SpO2 95% BMI 22.54 kg/(m^2). General: Well appearing, in no acute distress, speaking in complete sentences. Skin: No clubbing, no cyanosis. Head/Eyes: Extra ocular movements intact Mouth: Teeth in good repair. Neck: No jugular venous distention, no carotid bruits, carotids have a normal upstroke, no palpable thyromegaly. Lungs: Clear to auscultation and no rales Heart: Regular rhythm, PMI not displaced, S1, S2 normal, no S3, no S4, no heaves, no rub and no murmur. PV Pulses:Pulses intact Abdomen: Soft, nontender, bowel sounds normal, no palpable organomegaly, no bruits. Extremities: No peripheral edema . Grade 2/4 distal pulses bilaterally. Edema Scale: No Musculoskeletal: Normal gait and ambulation Neuro: Oriented to time, place and person CARDIOVASCULAR MEDICINE TESTING: Laboratory Testing: normal renal fx Echocardiogram:normal LV EF Cardiac CT Angiography: no significant disease in asc, arch or desc aorta. Coronary arteries - mild calcification in LMT, but no severe focal obstructions. I have personally reviewed the Laboratory Testing, Echocardiogram, and Cardiac CT Angiography. IMPRESSION: Ms. Lawson is a 62 year old female has aortic disease - seems more in abd infrarenal region than in thoracic segment. No angina. FUENTES has been stable for years. No cor angiogram, but CTA of aorta and coronaries does not reveal obstructive disease. PLAN AND RECOMMENDATIONS: Proceed with aortic disease assessment Aggressive 2ry prevention of atherosclerosis - will add statin. I personally interviewed, confirmed and edited the above information as obtained by others. CONTACT INFORMATION: documented in this encounter [facility] 01-09-2023 Miscellaneous Notes Schedule eval Needs Cards, CTA, Echo, add Ronnell on 02/17 Please mail to patient. Patient accepted evaluation on 02/17. Humberto Yoo RN Dr. Reynaga reviewed file and is offering evaluation and testing. NPM to contact patient to arrange. Humberto Yoo RN Chart reviewed December 30, 2022. File given to Dr. Reynaga for his review/plan of care. Barrie Lawson [id number] 62 year old Diagnosis: AAA distal 4.5 cm Secondary Dx: COPD, chronic diastolic HF, current tobacco, DLD Previous Surgeries: no cardiac Symptoms: denies EF%: 50 Thinners: motrin Smoking status: current 1 Rep Max 250 lbs, Occasional (75% max) 188 lbs, Frequent (45% max) 113 lbs, Constant (35% max) 88 lbs; Comments: current /4 PPD Humberto Yoo RN Called Dr. Garibay's office requesting medical records. They will fax reports for Abdominal Ultrasound October 2022, H&P, Echo (from a couple of months ago). They don't share CDs because they have multiple patients on one CD. They will try to upload images via [employer] link. documented in this encounter [facility] Evaluation note Diagnosis Disorder of artery or arteriole (HCC)- Primary Unspecified disorders of arteries and arterioles Infrarenal abdominal aortic aneurysm (AAA) without rupture (HCC) Mitral valve disorder Mitral valve disorders Tricuspid valve disorders, non-rheumatic Tricuspid valve disorders, specified as nonrheumatic [facility] Diagnosis Dislocated toe, right, initial encounter- Primary Pain Generalized pain Plantar fascial fibromatosis Acquired hallux valgus of right foot Hallux valgus (acquired) Porokeratosis 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 History of foot surgery Personal history of surgery to other organs [facility] Diagnosis Encounter for other preprocedural examination [facility] Diagnosis Essential hypertension- Primary Unspecified essential hypertension Vaping nicotine dependence, non-tobacco product Mixed hyperlipidemia Chronic obstructive pulmonary disease, unspecified COPD type (HCC) Ex-smoker for less than 1 year Infrarenal abdominal aortic aneurysm (AAA) without rupture (HCC) [facility] Diagnosis Infrarenal abdominal aortic aneurysm (AAA) without rupture (HCC)- Primary [facility] Outpatient Procedure (Routine) - Pending Review Specialty Diagnoses / Procedures Referred By Contac t Referred To Contact [facility] Diagnoses Infrarenal abdominal aortic aneurysm (AAA) without rupture (HCC) Disorder of artery or arteriole (HCC) Mitral valve disorder Tricuspid valve disorders, non-rheumatic Procedures ECHO ECHO TTHRC R-T 2D W/WOM-MODE COMPL SPEC&COLR D Cody Reynaga MD [address] [place] [address] [facility] [place] [address] [place] [address] Referral ID Status Reason Start Date Expiration Date Visits Requested Visits Authorized [id number] Pending Review Auto-Generat ed Referral 01/09/2023 01/09/2024 1 1 * MRI/CT (Routine) - Pending Review Specialty Diagnoses / Procedures Referred By Contac t Referred To Contact CT IMAGING Diagnoses Infrarenal abdominal aortic aneurysm (AAA) without rupture (HCC) Disorder of artery or arteriole (HCC) Mitral valve disorder Tricuspid valve disorders, non-rheumatic Procedures CTA CHEST (GATED) W IVCON CT ANGIOGRAPHY CHEST W/CONTRAST/NONCONTRAST Cody Reynaga MD [address] [place] [address] Ct Imaging [place] [address] Referral ID Status Reason Start Date Expiration Date Visits Requested Visits Authorized [id number] Pending Review Auto-Generat ed Referral 01/09/2023 02/08/2024 1 1 * Consult, Test, Treat (Routine) - Authorized Specialty Diagnoses / Procedures Referred By Reginald t Referred To Contact Cardiac Surg Diagnoses Infrarenal abdominal aortic aneurysm (AAA) without rupture (HCC) Disorder of artery or arteriole (HCC) Mitral valve disorder Tricuspid valve disorders, non-rheumatic Procedures CARDIOTHORACIC PREOP EVALUATION OFFICE/OUTPATIENT [facility] 60-74 MINUTES Cody Reynaga MD [address] [facility] [place] [id number] Referral ID Status Reason Start Date Expiration Date Visits Requested Visits Authorized [id number] Authorized PCP Requested Referral 01/09/2023 01/09/2024 1 1 * Consult, Test, Treat (Routine) - Authorized Specialty Diagnoses / Procedures [facility] To Contact Cardiology Diagnoses Infrarenal abdominal aortic aneurysm (AAA) without rupture (HCC) Disorder of artery or arteriole (HCC) Mitral valve disorder Tricuspid valve disorders, non-rheumatic Procedures CONSULT TO CARDIOLOGY OFFICE/OUTPATIENT [facility] 60-74 MINUTES Cody Reynaga MD [address] [facility] [place] [id number] Referral ID Status Reason Start Date Expiration Date Visits Requested Visits Authorized [id number] Authorized PCP Requested Referral 01/09/2023 01/09/2024 1 1 [facility] Diagnostic Procedure Only (Routine) - Pending Review Specialty Diagnoses / Procedures Referred By Contac t Referred To Contact US IMAGING Diagnoses Plantar fascial fibromatosis Procedures US FOOT LEFT US COMPL JOINT R-T W/IMAGE DOCUMENTATION Pedro Pablo Parker DPM [address] [place] [address] Us Imaging [place] [address] Referral ID Status Reason Start Date Expiration Date Visits Requested Visits Authorized [id number] Pending Review Auto-Generat ed Referral 03/03/2023 04/01/2024 1 1 * Diagnostic Procedure Only (Routine) - Closed Specialty Diagnoses / Procedures Referred By Contac t Referred To Contact XR IMAGING Diagnoses Pain Procedures XR FOOT GENERAL 3V AP/LAT/OBL BILATERAL RADEX FOOT COMPLETE MINIMUM 3 VIEWS Pedro Pablo Parker DPM [address] [place] [address] Xr Imaging [place] [address] Referral ID Status Reason Start Date Expiration Date V isits Requested Visits Authorized [id number] Closed Auto-Generate d Referral 03/03/2023 04/01/2024 1 1 [facility] Summary Purpose Family History No Family History Records FoundNo Family History Records FoundNo Family History Records Found Advance Directives No Advanced Directives Records FoundNo Advanced Directives Records FoundNo Advanced Directives Records Found Reason for Referral Specialty Diagnoses / Procedures Referred By Contac t Referred To Contact Procedures CARDIOVASCULAR MEDICINE OP FOLLOW UP APPT ORDER Kathryn Mercado MD [address] [place] [address] Referral ID Status Reason Start Date Expiration Date Visits Requested Visits Authorized [id number] Ref Not Required PCP Requested Referral 04/06/2024 1 1 Additional Source Comments Source Comments (unrecognize d section and content) In the event this informatio n is protected by the Federal Confidentiality of Alcohol and Drug Abuse Patient Records regulations: The Federal rules restrict any use of the information to criminally investigate or prosecute any alcohol or drug abuse patient.[facility] the event this information is protected by the Federal Confidentiality of Alcohol and Drug Abuse Patient Records regulations: The Federal rules restrict any use of the information to criminally investigate or prosecute any alcohol or drug abuse patient.[facility] the event this information is protected by the Federal Confidentiality of Alcohol and Drug Abuse Patient Records regulations: The Federal rules restrict any use of the information to criminally investigate or prosecute any alcohol or drug abuse patient.[facility] Hospital[facility] the event this information is protected by the Federal Confidentiality of Alcohol and Drug Abuse Patient Records regulations: The Federal rules restrict any use of the information to criminally investigate or prosecute any alcohol or drug abuse patient.[facility] Hospital[facility] the event this information is protected by the Federal Confidentiality of Alcohol and Drug Abuse Patient Records regulations: The Federal rules restrict any use of the information to criminally investigate or prosecute any alcohol or drug abuse patient.[facility] Hospital[facility] the event this information is protected by the Federal Confidentiality of Alcohol and Drug Abuse Patient Records regulations: The Federal rules restrict any use of the information to criminally investigate or prosecute any alcohol or drug abuse patient.[facility] Hospital[facility] the event this information is protected by the Federal Confidentiality of Alcohol and Drug Abuse Patient Records regulations: The Federal rules restrict any use of the information to criminally investigate or prosecute any alcohol or drug abuse patient.[facility] HospitalIn the event this information is protected by the Federal Confidentiality of Alcohol and Drug Abuse Patient Records regulations: The Federal rules restrict any use of the information to criminally investigate or prosecute any alcohol or drug abuse patient.[facility] Reason for Visit (unrecogniz ed section and content) Reason Onset Date Comments Refill Request 01/01/2022 Reason Comments Referral Information Consult Reason Comments New Arch radiates to reina ad foot. Patient states mass at arch New Right bunion pain wi th corn to bunionH/o right foot surgery x 2 in 90's Pain Right bunion pain wi th corn to bunionH/o right foot surgery x 2 in 90's Corns Pain Bunion Specialty Diagnoses / Procedures Referred By Contac t Referred To Contact CT IMAGING Diagnoses Encounter for other preprocedural examination Procedures CTA ABD/PEL W IVCON CT ANGIO ABD&PLVIS CNTRST MTRL W/[place] [address] [place] [address] Ct Imaging [place] [address] Referral ID Status Reason Start Date Expiration Date V isits Requested Visits Authorized [id number] Closed Auto-Generate d Referral 03/27/2023 05/10/2023 1 1 Reason Comments AAA Consult Heart failure Reason Comments Established Patient AAA Pre Op Care Teams (unrecognized sec tion and content) Coconut Cooker Relationship Specialty Start Date End Date Pascual Garibay Jr. [address] [place] [address] [phone] PCP - General Internal Medicine 07/07/20 Jamila Acosta DO [address] [place] [address] Primary Staff Physician Cardiology 10/30/20 Coconut Cooker Relationship Specialty Start Date End Date Pascual Garibay Jr. [address] [place] [address] [phone] PCP - General Internal Medicine 07/07/20 Jamila Acosta DO [address] [place] [address] Primary Staff Physician Cardiology 10/30/20 Cody Reynaga MD [address] [place] [address] Surgeon Cardiac Surg 12/23/22 Coconut Cooker Relationship Specialty Start Date End Date Pascual Garibay Jr. [facility] [address] [place] [phone] PCP - General Internal Medicine 07/07/20 Jamila Acosta DO [address] [place] [address] Primary Staff Physician Cardiology 10/30/20 Cody Reynaga MD [address] [place] [address] Surgeon Cardiac Surg 12/23/22 Coconut Cooker Relationship Specialty Start Date End Date Pascual Garibay Jr. [address] [place] [address] [address] [place] [phone] PCP - General Internal Medicine 07/07/20 Jamila Acosta DO [address] [place] [address] Primary Staff Physician Cardiology 10/30/20 Cody Reynaga MD [address] [place] [address] Surgeon Cardiac Surg 12/23/22 Coconut Cooker Relationship Specialty Start Date End Date Pascual Garibay Jr. [address] [place] [address] [address] [place] [phone] PCP - General Internal Medicine 07/07/20 Jamila Acosta DO [address] [place] [address] Primary Staff Physician Cardiology 10/30/20 Cody Reynaga MD [address] [place] [address] Surgeon Cardiac Surg 12/23/22 Coconut Cooker Relationship Specialty Start Date End Date Pascual Garibay Jr. [facility] [address] [place] [phone] PCP - General Internal Medicine 07/07/20 Jamila Acosta DO [address] [place] [address] Primary Staff Physician Cardiology 10/30/20 Cody Reynaga MD [address] [place] [address] Surgeon Cardiac Surg 12/23/22 Coconut Cooker Relationship Specialty Start Date End Date Pascual Garibay Jr. [address] [place] [address] [address] [place] [phone] PCP - General Internal Medicine 07/07/20 Jamila Acosta DO [address] [place] [address] Primary Staff Physician Cardiology 10/30/20 Cody Reynaga MD [address] [place] [address] Surgeon Cardiac Surg 12/23/22 Coconut Cooker Relationship Specialty Start Date End Date Pascual Garibay Mio [facility] [address] [place] [address] PCP - General Internal Medicine 07/07/20 Jamila Acosta DO [address] [place], [place] [phone] Primary Staff Physician Cardiology 10/30/20 Cody Reynaga MD [address] [place], [place] [id number] Surgeon Cardiac Surg 12/23/22 INFORMATION SOURCE (unrecogn ized section and content) DATE CREATED AUTHOR 03/19/2022 [facility] DATE CREATED AUTHOR AUTHOR'S ORGANIZ ATION 04/09/2023 [facility] DATE CREATED AUTHOR AUTHOR'S ORGANIZ ATION 04/11/2023 [facility] FOR RECORDS PERTAINING TO PATIENTS WHO ARE OR HAVE BEEN ENROLLED IN A CHEMICAL DEPENDENCY/SUBSTANCEABUSE PROGRAM, SOME INFORMATION MAY BE OMITTED. This clinical summary was aggregated from multiple sources. Caution should be exercised in using it in the provision of clinical care. This summary normalizes information from multiple sources, and as a consequence, information in this document may materially change the coding, format and clinical context of patient data. In addition, data may be omitted in some cases. CLINICAL DECISIONS SHOULD BE BASED ON THE PRIMARY CLINICAL RECORDS. [facility]. provides no warranty or guarantee of the accuracy or completeness of information in this document.
--- NOTE | 2023-06-05 15:48 | XR_ITS ---
[address] [address] Patient Name: BARRIE LAWSON MRN: [id number] date: 1960 Sex: F Assigned Patient Location: [facility] Current Patient Location: [facility] Accession/Order Number: [id number] Exam Date: 06/05/2023 15:40 Report Date: 06/05/2023 15:57 At the request of: BRENDA GARIBAY Procedure: XR DEXA axial skeleton EXAMINATION: XR DEXA axial skeleton, 06/05/2023 3:40 PM EST HISTORY: Asymptomatic Menopausal Z78.0 COMPARISON: 2012 TECHNIQUE: Dual-energy X-ray absorptiometry (DEXA) bone density study performed for the axial skeleton. HISTORY: Asymptomatic Menopausal Z78.0 FINDINGS: Bone mineral density AP spine L1-L4 measures 0.836 g/sq cm. Young adult T score -2.9. WHO classification: Osteoporosis. Bone mineral density in the femurs measures 0.741 g/sq cm. T score -2.1. WHO classification: Osteopenia XR/XR DEXA axial skeleton IMPRESSION: Osteopenia. Moderate fracture risk Electronically authenticated by: LINDA SPENCER Date: 06/05/2023 15:57
== END 2023-06-05 15:30 | disposition home or self-care (01) ==
LOC: RAD 15:29
PROVIDERS: PCP Internal Medicine; Visit Provider Internal Medicine
DX: M85.80 Other specified disorders of bone density and structure, unspecified site (principal); Z78.0 Asymptomatic menopausal state
CPT/HCPCS: 77080

== ENCOUNTER 2023-11-21 14:01 | Outpatient (OUT) | payer OTHER, SELFPAY ==
--- NOTE | 2023-11-21 | US_ITS ---
[facility] [place] [id number] Patient Name: BARRIE LAWSON MRN: [id number] date: 1960 Sex: F Assigned Patient Location: [place] Current Patient Location: [place] Accession/Order Number: [id number] Exam Date: 11/21/2023 14:15 Report Date: 11/21/2023 14:41 At the request of: NON-STAFF PHYSICIAN Procedure: US extremity nonvascular RT EXAM: US extremity nonvascular RT HISTORY: Fibroma of foot, right COMPARISON: None. TECHNIQUE: Grayscale and color FINDINGS: Identified in the plantar heel in the region of the patient's palpable abnormality a focal area of soft tissue, slightly hypoechoic to the surrounding tissue, measuring 1.8 x 0.8 x 1.8 cm US/US extremity nonvascular RT IMPRESSION: 1.8 cm mass corresponding to the patient's palpable abnormality. Consider fibroma Electronically authenticated by: LINDA SPENCER Date: 11/21/2023 14:41
== END 2023-11-21 14:02 | disposition home or self-care (01) ==
LOC: US 14:02
PROVIDERS: PCP Internal Medicine
DX: D21.21 Benign neoplasm of connective and other soft tissue of right lower limb, including hip (principal)
CPT/HCPCS: 76882

== ENCOUNTER 2024-02-16 12:52 | Outpatient (OUT) | payer OTHER, SELFPAY ==
--- NOTE | 2024-02-16 | MM_ITS ---
Patient Name: BARRIE LAWSON MR#: [id number] : 1960 Exam Date: 02/16/2024 Ordering Doctor: DR ANNA GRIFFIN RADIOLOGY REPORT PROCEDURE: MM TOMOSYNTHESIS SCREENING BI COMPARISON: MG MAMM SCREEN 3D CHARISSE CAD, 01/21/2022. MG MAMM SCREEN CHARISSE W CAD, 08/04/2020. INDICATIONS: Breast cancer screening by mammogram Z12.31 Calculator Name NCI Breast Cancer Risk Assessment Tool 5 Year Breast Cancer Risk 1.10% Lifetime Breast Cancer Risk 4.90% Personal Breast Cancer No Personal Ovarian Cancer No Treatments None Family Cancers Father with lung cancer at age ~50. LOCATION: [facility] BREAST COMPOSITION: The breasts are heterogeneously dense,which may obscure small masses. FINDINGS: DIAGNOSTIC CATEGORY 2--BENIGN FINDING. NO CHANGE FROM COMPARISON. Scattered benign-appearing lymph nodes are present. RIGHT BREAST: No significant suspicious finding. LEFT BREAST: No significant suspicious finding. RECOMMENDATIONS: ROUTINE MAMMOGRAM AND CLINICAL EVALUATION IN 12 MONTHS. PLEASE NOTE: A NORMAL MAMMOGRAM DOES NOT EXCLUDE THE POSSIBILITY OF BREAST CANCER. A CLINICALLY SUSPICIOUS PALPABLE LUMP SHOULD BE BIOPSIED. Dictated by: Vishnu López MD on 02/16/2024 at 14:56 Approved by: Vishnu López MD on 02/16/2024 at 14:58
== END 2024-02-16 12:53 | disposition home or self-care (01) ==
LOC: MAMMO 12:52
PROVIDERS: PCP Internal Medicine; Visit Provider Obstetrics & Gynecology
DX: Z12.31 Encounter for screening mammogram for malignant neoplasm of breast (principal); Z80.1 Family history of malignant neoplasm of trachea, bronchus and lung
CPT/HCPCS: 77063; 77067

== ENCOUNTER 2024-10-16 00:24 | Emergency (ER) | payer OTHER, SELFPAY ==
--- OUTSIDE RECORDS SUMMARY | 2024-09-23 11:14 | XMS_ITS ---
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 Name Role Phone ANNA GRIFFIN Attending Unavailable ELENA, PEDRO PABLO Attending Unavailable [facility] , [facility] Primary Care Unavail able ELENA, PEDRO PABLO Referring Unavailable [facility], [facility] Primary Care Unavail able ELENA, PEDRO PABLO Referring Unavailable [facility], [facility] Primary Care Unavail able ELENA, PEDRO PABLO Referring Unavailable [facility] , [facility] Primary Care Unavail able ELENA, PEDRO PABLO Referring Unavailable [facility] , [facility] Primary Care Unavail able [facility], [facility] Primary Care Unavail able LETA MALAVE Attending Unavailable [facility] Primary Care Unavail able LETA MALAVE Referring Unavailable ELENA, PEDRO PABLO Referring Unavailable [facility] Primary Care Unavail able ELENA, PEDRO PABLO Attending Unavailable ELENA, PEDRO PABLO Referring Unavailable [facility] Primary Care Unavail able PROBLEMS DATE TYPE CONDITION / CODE ATTENDING STATUS [facility] 09/23/2024 Active Bursitis of righ t foot / M77.51(ICD-10) NA Active [facility] 05/06/2024 Active Plantar fascial fibromatosis of left foot / M72.2(ICD-10) NA Active [facility] 05/06/2024 Active Fibroma of foot, right / D21.21(ICD-10) NA Active [facility] 09/30/2023 Active Infrarenal abdom inal aortic aneurysm (AAA) without rupture (HCC) / I71.43(ICD-10) NA Active [facility] 12/11/2023 Active Post-operative s [place] / Z98.890(ICD-10) NA Active [facility] 11/12/2023 Active Pain / R52(ICD-10) NA Active [facility] PROCEDURES No Procedure Records Found RESULTS US INJ TENDON ORIGIN/INSERT RT Observed: 09/23/2024 11:48 AM Status: F Source: [facility] * * *Final Report* * * DATE OF EXAM: Sep 23 2024 11:48AM MELITA 1155 - US INJ TENDON ORIGIN/INSERT RT / PROCEDURE REASON: Bursitis of right foot * * * * Physician Interpretation * * * * ULTRASOUND GUIDED RIGHT PLANTAR FOOT ADVENTITIAL BURSA STEROID INJECTION INDICATION: The patient is a 64 years old Female who presented with Bursitis of right foot . CONSENT: The risks, benefits, treatment options, potential complications and personnel to be involved were discussed (including the instruments to be used, contrast and anesthesia administration) with the patient. All questions were answered and consent was obtained. The patient indicated willingness to proceed. GENERAL: a) Medication Reconciliation: The patient's medications and allergies were reviewed in the electronic medical record and reconciled to the proposed procedure/treatment. Pre-procedure Sign-in: Safety Checklist Performed Yes c) Positioning: The patient was placed Supine on the Ultrasound table. d) Ultrasound guidance was used to target the the correct anatomy. The area was then sterilely prepped and draped. Ultrasound images were saved and sent to a permanent archive. e) Time Out: A time out was performed immediately prior to procedure start with the interventional team, correctly identifying the patient name, date of , procedure, anatomy (including marking of site and side), patient position, procedure consent form, relevant diagnostic and radiology test results, antibiotic administration, safety precautions, and procedure-specific equipment needs. Procedure Start Time / Timeout Time: 1140 f) Anesthesia Type: Local anesthesia: 2 mL 1% Lidocaine PRE-PROCEDURE IMAGING: Imaging was performed for the purposes of localization. PROCEDURE: a) Procedure Details:A 25g needle was inserted into the plantar adventitial bursa using ultrasound guidance after local anesthesia. 1 mL of injectate was administered into the bursa. The needle was removed. Images were stored to the digital archive documenting needle position. b) Injectate Contents: 1 mL Dexamethasone Sodium Phosphate (4 mg/ml) mL c) Estimated Blood Loss: 0 mL d) Number and Type of Removed Specimens: N/A POST PROCEDURE: a) Hemostasis: Hemostasis was achieved using light manual compression. b) Sign-out: Communication Performed N/A c) Procedure End Time: 143 d) Conclusion: 1. Post-Procedure instructions:Verbal instructions were given. 2. The patient was discharged from the radiology department in stable condition. COMPLICATIONS: a) Significant Patient Complication: None b) Complications during the procedure: None RESULTS: Medication was injected into the bursa IMPRESSION: SUCCESSFUL ULTRASOUND GUIDED THERAPEUTIC INJECTION OF THE RIGHT PLANTAR FOOT ADVENTITIAL BURSA, DESCRIBED ABOVE. Attending Radiologist: Dr. Magdaleno Melchor MD Supervisor [employer]: Pascual Prather DO The procedure was performed by the physician assistant certified, and the attending radiologist was not present but immediately available to furnish services during the entire procedure. Assistant Pastry Chef: PSCB Transcribe Date/Time: Sep 23 2024 11:52A Dictated by : PASCUAL PRATHER DO This examination was interpreted and the report reviewed and electronically signed by: MAGDALENO MELCHOR MD on Sep 23 2024 2:03PM EST [id number] Observed: 08/26/2024 12:00 AM Status: COMPLETED Source: [facility] Telephone (RULTTB) BARRIE LAWSON ([id number]) 1960 F Date Time Provider Department 08/26/24 JUNIOR MARINA [facility] During your visit today, we recorded the following information about you: Junior Marina 08/26/2024 10:07 AM Addendum Visit Type: INJ ONLY 4 Visit Length: 60 MINUTES Order Name/Protocol: US INJ TENDON ORIGIN/INSERTION RT; RT PLANTAR FASCIA ORIGIN INJ. REFER TO US FINDINGS FROM 05/06/24 Preferred Provider: N/A Comment: Please do not link the US ASP/INJ HAND/FINGER/FOOT/TOE JT BURSA RT to the appointment. An order correction was routed and is forthcoming. Location: [facility] Slot held: N/A Jayden Harley 08/26/2024 10:19 AM Signed PT scheduled for MSK US on 09/23/24 at 11:15 AM at Sports Allergies As of Date: 08/26/2024 Noted Allergy Reaction SWISS COCKROACH ALLERGENIC EXT*07/07/2020 4 - Hives APPLES 07/07/2020 4 - Hives CARVEDILOL 09/08/2023 5 - Intolerance Comments: Sinus congestion DUST MITES 07/07/2020 4 - Hives FISH CONTAINING PRODUCTS 07/07/2020 14 - Other: See Comments Comments: Allergy to Cod/flounder/halibut GRASS POLLEN-RHONDA MOBLEY, STAND*07/07/2020 5 - Intolerance TREE POLLEN-SWISS ELM 07/07/2020 5 - Intolerance WEED POLLEN-KOCHIA (FIREBUSH) 07/07/2020 5 - Intolerance WEED POLLEN-WESTERN RAGWEED 07/07/2020 14 - Other: See Comments WHEAT 07/07/2020 14 - Other: See Comments Comments: Wheat Pollen And Whole Grain Date Reviewed: 12/30/2023 Reviewed by: Pedro Pablo Parker DPM - Fully Assessed Reason for Visit: Appointment [186] Prescriptions as of 08/26/2024 - verapamil cream 15% (CPD) Apply to affected area once daily. - promethazine (PHENERGAN) 25 mg tablet Take 1 tablet by mouth every 6 hours as needed. - aspirin 325 mg tablet Take 1 tablet by mouth once daily. - docusate sodium (COLACE) 100 mg capsule Take 1 capsule by mouth two times a day. - ergocalciferol 50,000 unit capsule (VITAMIN D2, DRISDOL) Take 1 capsule by mouth one time a week. - celecoxib (CELEBREX) 200 mg capsule Take 200 mg by mouth once daily. - DULoxetine (CYMBALTA) 20 mg capsule Take 20 mg by mouth once daily. - pitavastatin (LIVALO) 4 mg tablet Take 1 tablet by mouth every afternoon. - qdysvbmlrhb-dpptpwqsj-okuwzngk (TRELEGY ELLIPTA) 200-62.5-25 mcg inhalation powder - ezetimibe (ZETIA) 10 mg tablet Take 1 tablet by mouth every afternoon. - aspirin 81 mg cap - AIRSUPRA 90-80 mcg/actuation inhaler 2 Puffs every 6 hours as needed. - romosozumab-aqqg 105 mg/1.17 mL subcutaneous syringe - varenicline tartrate (CHANTIX ORAL) Take by mouth. - valsartan (DIOVAN) 40 mg tablet Take 1 tablet by mouth once daily. - azelastine (ASTELIN) 0.1% nasal spray once daily. - ascorbic acid/collagen hydr (COLLAGEN PLUS VITAMIN C ORAL) once daily. - C,E,zinc,copper 11/cswzj5x/lut (OCUVITE ADULT 50 PLUS ORAL) once daily. [...] as needed. Problem List As Of Date 08/26/2024 Noted Resolved Essential hypertension [I10] 07/07/2020 Former smoker [Z87.891] 07/07/2020 Other hyperlipidemia [E78.49] 07/07/2020 Chronic diastolic heart failure (HCC) [I50.32] 07/25/2020 History of COVID-19 [Z86.16] 11/14/2020 Infrarenal abdominal aortic aneurysm (AAA) with*12/30/2022 COPD (chronic obstructive pulmonary disease) (H*09/08/2023 GERD (gastroesophageal reflux disease) [K21.9] 09/08/2023 09/08/2023 Electronic cigarette use [Z78.9] 09/08/2023 Encounter Status:Closed by JAYDEN HARLEY on 08/26/24 US EXT MASS/FLUID COLLECTION LT Observed: 05/06/2024 1:48 PM Status: F Source: [facility] * * *Final Report* * * DATE OF EXAM: May 06 2024 1:48PM DIANA 1024 - US EXT MASS/FLUID COLLECTION LT / PROCEDURE REASON: Plantar fascial fibromatosis of left foot * * * * Physician Interpretation * * * * MSK_US SOFT TISSUE ULTRASOUND OF THE LEFT FOOT. HISTORY: Palpable lump. TECHNIQUE: Grayscale and power Doppler ultrasound imaging was performed in the area of concern and images were saved to the permanent image archive. RESULT: In the area corresponding to patient's palpable lump at the plantar aspect of the left foot/arch, there are several (3-4) areas of focal thickening within the plantar fascial with plantar fascial fibromas. The largest measures 2.0 x 0.6 x 1.7 cm and is located 3.7 cm proximal to the first metatarsal head. There is minimal internal vascularity, no associated surrounding hyperemia. No focal fluid collection. IMPRESSION: Plantar fascial fibromatosis, corresponding to patient's palpable abnormality. Assistant Pastry Chef: CHIQUI Transcribe Date/Time: May 06 2024 1:57P Dictated by : EDEN SANDERS MD This examination was interpreted and the report reviewed and electronically signed by: EDEN SANDERS MD on May 06 2024 3:00PM EST [id number] US EXT MASS/FLUID COLLECTION RT Observed: 05/06/2024 1:15 PM Status: F Source: [facility] * * *Final Report* * * DATE OF EXAM: May 06 2024 1:15PM DIANA 1025 - US EXT MASS/FLUID COLLECTION RT / PROCEDURE REASON: Fibroma of foot, right * * * * Physician Interpretation * * * * MSK_US SOFT TISSUE ULTRASOUND OF THE RIGHT FOOT. HISTORY: Palpable lump. TECHNIQUE: Grayscale and power Doppler ultrasound imaging was performed in the area of concern and images were saved to the permanent image archive. RESULT: In the area corresponding to patient's palpable lump at the plantar aspect of the right heel, there is metatarsal bursal formation with a small amount of fluid measuring 1.4 x 0.7 x 1.3 cm. This is superficial to the plantar fascia origin. There is no internal vascularity or associated surrounding hyperemia. No solid mass lesion is seen. 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 Assistant Pastry Chef: CHIQUI Transcribe Date/Time: May 06 2024 1:49P Dictated by : EDEN SANDERS MD This examination was interpreted and the report reviewed and electronically signed by: EDEN SANDERS MD on May 06 2024 3:00PM EST [id number] CNOV Observed: 04/09/2024 11:15 AM Status: COMPLETED Source: [facility] Office Visit ([facility]) BARRIE LAWSON ([id number]) 1960 F Date Time Provider Department 04/09/24 11:15 AM LETA MALAVE [facility] During your visit today, we recorded the following information about you: Leta Malave MD 04/09/2024 10:57 AM Signed [facility] [place] DEPARTMENT OF VASCULAR SURGERY OUTPATIENT VISIT TYPE ESTABLISHED INTERVAL HISTORY Barrie Lawson is a 63 year old female with an infrarenal AAA. She reports no new symptoms consistent with her aneurysm. She underwent duplex today which demonstrate stability in size. She is otherwise doing well. My prior note: ASSESSMENT Barrie Lawson is a 62 year [...] the origin of the RRA is <3mm. Denies any new abdominal symptoms over the last 6 months, including abdominal pain, back pain, flank pain, or referred pain into her groin. She is a former smoker She denies any claudication, rest pain, or tissue loss. She has no anginal symptoms with exertion and denies SOB while walking up 2 flights of stairs. Tobacco Use: .25 packs/day, for 42 years. Quit 11/23/2022. Types: Cigarettes PAST MEDICAL HISTORY Diagnosis Date AAA (abdominal aortic aneurysm) (HCC) Congestive heart failure (HCC) COPD (chronic obstructive pulmonary disease) (HCC) Diverticulosis Dyslipidemia 2019 Engages in vaping Family history of early CAD HTN (hypertension) 2019 PAST SURGICAL HISTORY Procedure Laterality Date APPENDECTOMY COLONOSCOPY SCREENING REMOVAL GALLBLADDER REMV CATARACT EXTRACAP,INSERT LENS Bilateral [...] Known Problems Brother Cancer Brother testicular cancer Anesthesia Problems No Family History Blood Clots No Family History Clotting Disorder No Family History Social History Tobacco Use Smoking status: Former Current packs/day: 0.00 Average packs/day: 0.3 packs/day for 42.0 years (10.5 ttl pk-yrs) Types: Cigarettes Start date: 11/1980 Quit date: 11/2022 Years since quittin.3 Smokeless tobacco: Current Tobacco comments: currently vapes Vaping Use Vaping status: current everyday user Substances: Nicotine Devices: Disposable Substance Use Topics Alcohol use: Not Currently Drug use: Never Current Outpatient Medications Medication Sig Dispense Refill promethazine (PHENERGAN) 25 mg tablet Take 1 tablet by mouth every 6 hours as needed. 30 tablet 2 aspirin 325 mg tablet Take 1 tablet by mouth once daily. 42 tablet 0 docusate sodium (COLACE) 100 mg capsule Take 1 capsule by mouth two times a day. 30 capsule 2 ergocalciferol 50,000 unit capsule (VITAMIN D2, DRISDOL) Take 1 capsule by mouth one time a week. 6 capsule 0 celecoxib (CELEBREX) 200 mg capsule Take 200 mg by mouth once daily. (Patient not taking: Reported on 09/26/2023) DULoxetine (CYMBALTA) 20 mg capsule Take 20 mg by mouth once daily. (Patient not taking: Reported on 09/26/2023) pitavastatin (LIVALO) 4 mg tablet Take 1 tablet by mouth every afternoon. bnujkqmwauf-wnfddupfp-jkqhvvuh (TRELEGY ELLIPTA) 200-62.5-25 mcg inhalation powder ezetimibe (ZETIA) 10 mg tablet Take 1 tablet by mouth every afternoon. aspirin 81 mg cap AIRSUPRA 90-80 mcg/actuation inhaler 2 Puffs every 6 hours as needed. romosozumab-aqqg 105 mg/1.17 mL subcutaneous syringe varenicline tartrate (CHANTIX ORAL) Take by mouth. valsartan (DIOVAN) 40 mg tablet Take 1 tablet by mouth once daily. 90 tablet 3 azelastine (ASTELIN) 0.1% nasal spray once daily. ascorbic acid/collagen hydr (COLLAGEN PLUS VITAMIN C ORAL) once daily. C,E,zinc,copper 11/szpzm8p/lut (OCUVITE ADULT 50 PLUS ORAL) once daily. [...] medications for this visit. ALLERGIES Allergen Reactions [place] Cockroach * Hives Apples Hives Carvedilol Intolerance Sinus congestion Dust Mites Hives Fish Containing Pro* Other: See Comments Allergy to Cod/flounder/halibut Grass Pollen-Kentuc* Intolerance Tree Pollen-Beba* Intolerance [place] Pollen-Kochia * Intolerance [place] Pollen-Western* Other: See Comments Wheat Other: See Comments Wheat Pollen And Whole Grain PHYSICAL EXAM Vitals: There were no vitals taken for this visit. General: Well developed, no acute distress Skin: No lesions; normal color, turgor HEENT: Normocephalic, atraumatic, extraocular movements intact. Pulmonary: Equal chest rise bilaterally, normal effort Abdomen: Soft, non-tender, non-distended. Extremities: No edema or ulceration LABS Creatinine Date Value Ref Range Status 02/17/2023 0.78 0.58 - 0.96 mg/dL Final 11/14/2020 0.80 0.58 - 0.96 mg/dL Final 07/07/2020 0.74 0.58 - 0.96 mg/dL Final Creatinine (POCT) Date Value Ref Range Status 02/17/2023 0.90 0.7 - 1.4 mg/dL Final Cholesterol, Total Date Value Ref Range Status 07/07/2020 158 <200 mg/dL Final Comment: <200 mg/dL, Desirable 200-239 mg/dL, Borderline high >239 mg/dL, High HDL Cholesterol Date Value Ref Range Status 07/07/2020 39 (L) >39 mg/dL Final Comment: 40-59 mg/dL, Acceptable >59 mg/dL, High: Negative risk factor for coronary heart disease <40 mg/dL, Low: Positive risk factor for coronary heart disease LDL Cholesterol Date Value Ref Range Status 07/07/2020 86 <100 mg/dL Final Comment: <100 mg/dL, Optimal 100-129 mg/dL, Near optimal/above optimal 130-159 mg/dL, Borderline high 160-189 mg/dL, High >189 mg/dL, Very high Secondary prevention optimal LDL Cholesterol levels are recommended to be < 70 mg/dL Triglyceride Date Value Ref Range Status 07/07/2020 164 (H) <150 mg/dL Final Comment: <150 mg/dL, Normal 150-199 mg/dL, Borderline high 200-499 mg/dL, High >499 mg/dL, Very high Glucose Date Value Ref Range Status 11/14/2020 94 74 - 99 mg/dL Final Comment: The [place] [employer] Association (ADA) provides guidance for cutoff values for fasting glucose and random glucose. The ADA defines fasting as no caloric intake for at least 8 hours. Fasting plasma glucose results between 100 to 125 mg/dL indicate increased risk for diabetes (prediabetes). Fasting plasma glucose results greater than or equal to 126 mg/dL meet the criteria for diagnosis of diabetes. In the absence of unequivocal hyperglycemia, results should be confirmed by repeat testing. In a patient with classic symptoms of hyperglycemia or hyperglycemic crisis, random plasma glucose results greater than or equal to 200 mg/dL meet the criteria for diagnosis of diabetes. Reference: Standards of Medical Care in Diabetes 2016, [place] [employer] Association. Diabetes Care. 2016.39(Suppl 1). No results found for: HBA1C ASSESSMENT Barrie Lawson is a 63 year old female with a stable size infrarenal AAA measuring 4.5cm Imaging studies: I have personally viewed the following images/data: Aortic duplex IMPRESSION Compared to prior study, juxtaarenal ectasia is not noted on today's exam. All other images are essentially unchanged. AORTA Infrarenal abdominal aortic aneurysm measuring 4.3 x 4.4 cm at mid. RIGHT VESSELS Common iliac artery patent without evidence of aneurysm throughout. Internal iliac artery is patent at proximal. LEFT VESSELS Common iliac artery patent without evidence of aneurysm throughout. Internal iliac artery patent without evidence of aneurysm at proximal. PLAN/RECOMMENDATIONS I had a thorough discussion with the patient regarding their most recent imaging results and clinical condition. Will plan for CTA in 1 year for surveillance. Discussed risks of rupture and symptoms of rupture. If necessary, she has an endovascular option for urgent repair. There were no barriers to communication or education today and the patient and family know to call with any questions that may arise. Leta Malave MD Staff Surgeon, Vascular Surgery This note was partially generated using [employer] voice recognition system, and there may be some incorrect words, spellings, and punctuation that were not noted in checking the note before saving. Medical Decision Making: Medical Decision Making Level: 1 - N/A Referring Provider: SELF [200] Allergies As of Date: 04/09/2024 Noted Allergy Reaction SWISS COCKROACH ALLERGENIC EXT*07/07/2020 4 - Hives APPLES 07/07/2020 4 - Hives CARVEDILOL 09/08/2023 5 - Intolerance Comments: Sinus congestion DUST MITES 07/07/2020 4 - Hives FISH CONTAINING PRODUCTS 07/07/2020 14 - Other: See Comments Comments: Allergy to Cod/flounder/halibut GRASS POLLEN-RHONDA BLUE, STAND*07/07/2020 5 - Intolerance TREE POLLEN-SWISS ELM 07/07/2020 5 - Intolerance WEED POLLEN-KOCHIA (FIREBUSH) 07/07/2020 5 - Intolerance WEED POLLEN-WESTERN RAGWEED 07/07/2020 14 - Other: See Comments WHEAT 07/07/2020 14 - Other: See Comments Comments: Wheat Pollen And Whole Grain Date Reviewed: 12/30/2023 Reviewed by: Pedro Pablo Parker DPM - Fully Assessed Reason for Visit: Established Patient [175] Primary Visit Diagnosis:Infrarenal abdominal aortic aneurysm (AAA) without rupture (HCC) [I71.43] Prescriptions as of 04/09/2024 - promethazine (PHENERGAN) 25 mg tablet Take 1 tablet by mouth every 6 hours as needed. - aspirin 325 mg tablet Take 1 tablet by mouth once daily. - docusate sodium (COLACE) 100 mg capsule Take 1 capsule by mouth two times a day. - ergocalciferol 50,000 unit capsule (VITAMIN D2, DRISDOL) Take 1 capsule by mouth one time a week. - celecoxib (CELEBREX) 200 mg capsule Take 200 mg by mouth once daily. - DULoxetine (CYMBALTA) 20 mg capsule Take 20 mg by mouth once daily. - pitavastatin (LIVALO) 4 mg tablet Take 1 tablet by mouth every afternoon. - afiqjwdqqdl-qszpkkbza-couxshby (TRELEGY ELLIPTA) 200-62.5-25 mcg inhalation powder - ezetimibe (ZETIA) 10 mg tablet Take 1 tablet by mouth every afternoon. - aspirin 81 mg cap - AIRSUPRA 90-80 mcg/actuation inhaler 2 Puffs every 6 hours as needed. - romosozumab-aqqg 105 mg/1.17 mL subcutaneous syringe - varenicline tartrate (CHANTIX ORAL) Take by mouth. - valsartan (DIOVAN) 40 mg tablet Take 1 tablet by mouth once daily. - azelastine (ASTELIN) 0.1% nasal spray once daily. - ascorbic acid/collagen hydr (COLLAGEN PLUS VITAMIN C ORAL) once daily. - C,E,zinc,copper 11/kepqp1z/lut (OCUVITE ADULT 50 PLUS ORAL) once daily. [...] as needed. Problem List As Of Date 04/09/2024 Noted Resolved Essential hypertension [I10] 07/07/2020 Former smoker [Z87.891] 07/07/2020 Other hyperlipidemia [E78.49] 07/07/2020 Chronic diastolic heart failure (HCC) [I50.32] 07/25/2020 History of COVID-19 [Z86.16] 11/14/2020 Infrarenal abdominal aortic aneurysm (AAA) with*12/30/2022 COPD (chronic obstructive pulmonary disease) (H*09/08/2023 GERD (gastroesophageal reflux disease) [K21.9] 09/08/2023 09/08/2023 Electronic cigarette use [Z78.9] 09/08/2023 Encounter Status:Closed by LETA MALAVE on 04/09/24 PROGRESS Observed: 04/09/2024 10:55 AM Status: COMPLETED Source: [facility] ID: [id number] Author: LETA MALAVE MD Service: ? Author Type: Physician Type: Progress Notes Filed: 04/09/2024 10:57 Note Text: [facility] [place] DEPARTMENT OF VASCULAR SURGERY OUTPATIENT VISIT TYPE ESTABLISHED INTERVAL HISTORY Barrie Lawson is a 63 year old female with an infrarenal AAA. She reports no new symptoms consistent with her aneurysm. She underwent duplex today which demonstrate stability in size. She is otherwise doing well. My prior note: ASSESSMENT Barrie Lawson is a 62 year [...] the origin of the RRA is <3mm. Denies any new abdominal symptoms over the last 6 months, including abdominal pain, back pain, flank pain, or referred pain into her groin. She is a former smoker She denies any claudication, rest pain, or tissue loss. She has no anginal symptoms with exertion and denies SOB while walking up 2 flights of stairs. Tobacco Use: .25 packs/day, for 42 years. Quit 11/23/2022. Types: Cigarettes PAST MEDICAL HISTORY Diagnosis Date AAA (abdominal aortic aneurysm) (HCC) Congestive heart failure (HCC) COPD (chronic obstructive pulmonary disease) (HCC) Diverticulosis Dyslipidemia 2019 Engages in vaping Family history of early CAD HTN (hypertension) 2019 PAST SURGICAL HISTORY Procedure Laterality Date APPENDECTOMY COLONOSCOPY SCREENING REMOVAL GALLBLADDER REMV CATARACT EXTRACAP,INSERT LENS Bilateral [...] Known Problems Brother Cancer Brother testicular cancer Anesthesia Problems No Family History Blood Clots No Family History Clotting Disorder No Family History Social History Tobacco Use Smoking status: Former Current packs/day: 0.00 Average packs/day: 0.3 packs/day for 42.0 years (10.5 ttl pk-yrs) Types: Cigarettes Start date: 11/1980 Quit date: 11/2022 Years since quittin.3 Smokeless tobacco: Current Tobacco comments: currently vapes Vaping Use Vaping status: current everyday user Substances: Nicotine Devices: Disposable Substance Use Topics Alcohol use: Not Currently Drug use: Never Current Outpatient Medications Medication Sig Dispense Refill promethazine (PHENERGAN) 25 mg tablet Take 1 tablet by mouth every 6 hours as needed. 30 tablet 2 aspirin 325 mg tablet Take 1 tablet by mouth once daily. 42 tablet 0 docusate sodium (COLACE) 100 mg capsule Take 1 capsule by mouth two times a day. 30 capsule 2 ergocalciferol 50,000 unit capsule (VITAMIN D2, DRISDOL) Take 1 capsule by mouth one time a week. 6 capsule 0 celecoxib (CELEBREX) 200 mg capsule Take 200 mg by mouth once daily. (Patient not taking: Reported on 09/26/2023) DULoxetine (CYMBALTA) 20 mg capsule Take 20 mg by mouth once daily. (Patient not taking: Reported on 09/26/2023) pitavastatin (LIVALO) 4 mg tablet Take 1 tablet by mouth every afternoon. mpjpriduzvu-oanhgzxcd-cpowmrdi (TRELEGY ELLIPTA) 200-62.5-25 mcg inhalation powder ezetimibe (ZETIA) 10 mg tablet Take 1 tablet by mouth every afternoon. aspirin 81 mg cap AIRSUPRA 90-80 mcg/actuation inhaler 2 Puffs every 6 hours as needed. romosozumab-aqqg 105 mg/1.17 mL subcutaneous syringe varenicline tartrate (CHANTIX ORAL) Take by mouth. valsartan (DIOVAN) 40 mg tablet Take 1 tablet by mouth once daily. 90 tablet 3 azelastine (ASTELIN) 0.1% nasal spray once daily. ascorbic acid/collagen hydr (COLLAGEN PLUS VITAMIN C ORAL) once daily. C,E,zinc,copper 11/gjygb0l/lut (OCUVITE ADULT 50 PLUS ORAL) once daily. [...] medications for this visit. ALLERGIES Allergen Reactions Angolan Cockroach * Hives Apples Hives Carvedilol Intolerance Sinus congestion Dust Mites Hives Fish Containing Pro* Other: See Comments Allergy to Cod/flounder/halibut Grass Pollen-Kentuc* Intolerance Tree Pollen-Beba* Intolerance Clifton Pollen-Kochia * Intolerance Clifton Pollen-Western* Other: See Comments Wheat Other: See Comments Wheat Pollen And Whole Grain PHYSICAL EXAM Vitals: There were no vitals taken for this visit. General: Well developed, no acute distress Skin: No lesions; normal color, turgor HEENT: Normocephalic, atraumatic, extraocular movements intact. Pulmonary: Equal chest rise bilaterally, normal effort Abdomen: Soft, non-tender, non-distended. Extremities: No edema or ulceration LABS Creatinine Date Value Ref Range Status 02/17/2023 0.78 0.58 - 0.96 mg/dL Final 11/14/2020 0.80 0.58 - 0.96 mg/dL Final 07/07/2020 0.74 0.58 - 0.96 mg/dL Final Creatinine (POCT) Date Value Ref Range Status 02/17/2023 0.90 0.7 - 1.4 mg/dL Final Cholesterol, Total Date Value Ref Range Status 07/07/2020 158 <200 mg/dL Final Comment: <200 mg/dL, Desirable 200-239 mg/dL, Borderline high >239 mg/dL, High HDL Cholesterol Date Value Ref Range Status 07/07/2020 39 (L) >39 mg/dL Final Comment: 40-59 mg/dL, Acceptable >59 mg/dL, High: Negative risk factor for coronary heart disease <40 mg/dL, Low: Positive risk factor for coronary heart disease LDL Cholesterol Date Value Ref Range Status 07/07/2020 86 <100 mg/dL Final Comment: <100 mg/dL, Optimal 100-129 mg/dL, Near optimal/above optimal 130-159 mg/dL, Borderline high 160-189 mg/dL, High >189 mg/dL, Very high Secondary prevention optimal LDL Cholesterol levels are recommended to be < 70 mg/dL Triglyceride Date Value Ref Range Status 07/07/2020 164 (H) <150 mg/dL Final Comment: <150 mg/dL, Normal 150-199 mg/dL, Borderline high 200-499 mg/dL, High >499 mg/dL, Very high Glucose Date Value Ref Range Status 11/14/2020 94 74 - 99 mg/dL Final Comment: The [place] Diabetes Association (ADA) provides guidance for cutoff values for fasting glucose and random glucose. The ADA defines fasting as no caloric intake for at least 8 hours. Fasting plasma glucose results between 100 to 125 mg/dL indicate increased risk for diabetes (prediabetes). Fasting plasma glucose results greater than or equal to 126 mg/dL meet the criteria for diagnosis of diabetes. In the absence of unequivocal hyperglycemia, results should be confirmed by repeat testing. In a patient with classic symptoms of hyperglycemia or hyperglycemic crisis, random plasma glucose results greater than or equal to 200 mg/dL meet the criteria for diagnosis of diabetes. Reference: Standards of Medical Care in Diabetes 2016, [place] Diabetes Association. Diabetes Care. 2016.39(Suppl 1). No results found for: HBA1C ASSESSMENT Barrie Lawson is a 63 year old female with a stable size infrarenal AAA measuring 4.5cm Imaging studies: I have personally viewed the following images/data: Aortic duplex IMPRESSION Compared to prior study, juxtaarenal ectasia is not noted on today's exam. All other images are essentially unchanged. AORTA Infrarenal abdominal aortic aneurysm measuring 4.3 x 4.4 cm at mid. RIGHT VESSELS Common iliac artery patent without evidence of aneurysm throughout. Internal iliac artery is patent at proximal. LEFT VESSELS Common iliac artery patent without evidence of aneurysm throughout. Internal iliac artery patent without evidence of aneurysm at proximal. PLAN/RECOMMENDATIONS I had a thorough discussion with the patient regarding their most recent imaging results and clinical condition. Will plan for CTA in 1 year for surveillance. Discussed risks of rupture and symptoms of rupture. If necessary, she has an endovascular option for urgent repair. There were no barriers to communication or education today and the patient and family know to call with any questions that may arise. Leta Malave MD Staff Surgeon, Vascular Surgery This note was partially generated using FiftyThree voice recognition system, and there may be some incorrect words, spellings, and punctuation that were not noted in checking the note before saving. Medical Decision Making: Medical Decision Making Level: 1 - N/A US ABD AORTA COMPLETE VAS LAB Observed: 04/09/2024 9:52 AM Status: F Source: [facility] Cardiovascular Medicine Office Abdominal Aorta Bilateral/Complete Date of service/time: 04/09/2024 9:52:49 AM Name: MS. BARRIE LAWSON Date of : 1960 Age: 63 years Gender: F Clinical Indication Abdominal aortic aneurysm. TECHNIQUE -------- An aortic duplex ultrasound examination was performed, including grayscale imaging and color Doppler and spectral Doppler examination of abdominal aorta as well as the below mentioned arteries. FINDINGS -------- AORTA Proximal: PSV: 80 cm/s. EDV: 16 cm/s. 2.47 cm x 2.43 cm At renal: PSV: 70 cm/s. EDV: 0 cm/s. 2.31 cm x 2.36 cm Mid: PSV: 45 cm/s. EDV: 0 cm/s. 4.28 cm x 4.43 cm Distal: PSV: 20 cm/s. EDV: 0 cm/s. 2.78 cm x 2.84 cm RIGHT VESSELS Common iliac origin: PSV: 81 cm/s. EDV: 0 cm/s. 1.04 cm x 1.05 cm Common iliac proximal: PSV: 80 cm/s. EDV: 0 cm/s. 0.96 cm x 0.99 cm Common iliac mid: PSV: 89 cm/s. EDV: 9 cm/s. 0.88 cm x 0.95 cm Common iliac distal: PSV: 88 cm/s. EDV: 0 cm/s. 1.18 cm x 1.23 cm Internal iliac proximal: PSV: 85 cm/s. EDV: 0 cm/s. LEFT VESSELS Common iliac origin: PSV: 75 cm/s. EDV: 0 cm/s. 1.10 cm x 1.12 cm Common iliac proximal: PSV: 75 cm/s. EDV: 0 cm/s. 1.09 cm x 1.04 cm Common iliac mid: PSV: 75 cm/s. EDV: 0 cm/s. 1.04 cm x 1.12 cm Common iliac distal: PSV: 73 cm/s. EDV: 0 cm/s. 1.09 cm x 1.11 cm Internal iliac proximal: PSV: 55 cm/s. EDV: 8 cm/s. 0.91 cm x 0.92 cm IMPRESSION Compared to prior study, juxtaarenal ectasia is not noted on today's exam. All other images are essentially unchanged. AORTA Infrarenal abdominal aortic aneurysm measuring 4.3 x 4.4 cm at mid. Mural thrombus present. RIGHT VESSELS Common iliac artery patent without evidence of aneurysm throughout. Internal iliac artery is patent at proximal. LEFT VESSELS Common iliac artery patent without evidence of aneurysm throughout. Internal iliac artery patent without evidence of aneurysm at proximal. Technologist: Alejandro Anthony Divya Ordering physician: LETA MALAVE Interpreting physician: Tamara Pandey MD Final CC [employer] Medical Image : [id number] See Link below for Image CNCO Observed: 12/22/2023 12:00 AM Status: COMPLETED Source: [facility] Letter Text CNCO Observed: 12/19/2023 12:00 AM Status: COMPLETED Source: [facility] Letter Text PROGRESS Observed: 12/11/2023 12:30 PM Status: COMPLETED Source: [facility] HNO ID: [id number] Author: PEDRO PABLO PARKER DPM Service: ? Author Type: Physician Type: Progress Notes Filed: 12/30/2023 11:44 Note Text: SERVICE DATE: December 11, 2023 PCP: Pascual Maher Jr, DO Subjective Patient ID: Barrie is a 63 year old female. Chief Complaint: Post-op visit Patient presents with: Right Foot - Post Op PAIN EVALUATION No data found in the last 1 encounters. HPI s/p Left 1st MPJ arthrodesis Review of Systems Constitutional: Negative. HENT: Negative. Respiratory: Negative. Cardiovascular: Negative. Gastrointestinal: Negative. Endocrine: Negative. Skin: Negative. Neurological: Positive for numbness. Hematological: Negative. Musculoskeletal: Negative. ACTIVE PROBLEM LIST Essential Hypertension Former Smoker Other Hyperlipidemia Chronic Diastolic Heart Failure (Hcc) History of Covid-19 Infrarenal Abdominal Aortic Aneurysm (Aaa) Without Rupture (Hcc) Copd (Chronic Obstructive Pulmonary Disease) (Hcc) Electronic Cigarette Use PAST MEDICAL HISTORY No date: AAA (abdominal aortic aneurysm) (HCC) No date: Congestive heart failure (HCC) No date: COPD (chronic obstructive pulmonary disease) (HCC) No date: Diverticulosis 2020: Dyslipidemia No date: Engages in vaping No date: Family history of early CAD 2020: HTN (hypertension) PAST SURGICAL HISTORY No date: APPENDECTOMY No date: COLONOSCOPY SCREENING No date: REMOVAL GALLBLADDER No date: REMV CATARACT EXTRACAP,INSERT LENS; Bilateral No date: SURGERY ADD; Right Comment: bunion on R foot No date: TONSILLECTOMY HX No date: TOTAL ABDOM HYSTERECTOMY Comment: partial FAMILY HISTORY Problem Relation Age of Onset Hypertension Mother Hyperlipidemia Mother other (kidney cancer) Mother Diabetes Mother other (Myocardial infarction) Mother Cancer Father lung No Known Problems Sister other (diverticulosis) Sister No Known Problems Sister No Known Problems Sister Systemic Lupus Erythematosus Sister Hypertension Brother Neuropathy Brother Hyperlipidemia Brother other (testicutlar cancer) Brother No Known Problems Brother Cancer Brother testicular cancer Anesthesia Problems No Family History Blood Clots No Family History Clotting Disorder No Family History Social History Tobacco Use Smoking status: Former Packs/day: 0.25 Years: 42.00 Additional pack years: 0.00 Total pack years: 10.50 Types: Cigarettes Quit date: 11/2022 Years since quittin.1 Smokeless tobacco: Current Tobacco comments: currently vapes Vaping Use Vaping Use: current everyday user Substances: Nicotine Devices: Disposable Substance Use Topics Alcohol use: Not Currently Drug use: Never ALLERGIES Allergen Reactions Angolan Cockroach * Hives Apples Hives Carvedilol Intolerance Sinus congestion Dust Mites Hives Fish Containing Pro* Other: See Comments Allergy to Cod/flounder/halibut Grass Pollen-Kentuc* Intolerance Tree Pollen-Beba* Intolerance Clifton Pollen-Kochia * Intolerance Clifton Pollen-Western* Other: See Comments Wheat Other: See Comments Wheat Pollen And Whole Grain MEDICATIONS: promethazine (PHENERGAN) 25 mg tablet Take 1 tablet by mouth every 6 hours as needed. aspirin 325 mg tablet Take 1 tablet by mouth once daily. docusate sodium (COLACE) 100 mg capsule Take 1 capsule by mouth two times a day. ergocalciferol 50,000 unit capsule (VITAMIN D2, DRISDOL) Take 1 capsule by mouth one time a week. celecoxib (CELEBREX) 200 mg capsule Take 200 mg by mouth once daily. (Patient not taking: Reported on 09/26/2023) DULoxetine (CYMBALTA) 20 mg capsule Take 20 mg by mouth once daily. (Patient not taking: Reported on 09/26/2023) pitavastatin (LIVALO) 4 mg tablet Take 1 tablet by mouth every afternoon. rcqgauibvtp-wukjqbhla-hvwvjtqk (TRELEGY ELLIPTA) 200-62.5-25 mcg inhalation powder ezetimibe (ZETIA) 10 mg tablet Take 1 tablet by mouth every afternoon. aspirin 81 mg cap AIRSUPRA 90-80 mcg/actuation inhaler 2 Puffs every 6 hours as needed. romosozumab-aqqg 105 mg/1.17 mL subcutaneous syringe varenicline tartrate (CHANTIX ORAL) Take by mouth. valsartan (DIOVAN) 40 mg tablet Take 1 tablet by mouth once daily. azelastine (ASTELIN) 0.1% nasal spray once daily. ascorbic acid/collagen hydr (COLLAGEN PLUS VITAMIN C ORAL) once daily. C,E,zinc,copper 11/osnrs4u/lut (OCUVITE ADULT 50 PLUS ORAL) once daily. [...] Patient ambulated into the office treatment room. Vascular/Neurological: NVS unchanged +mild edema noted to the operative foot Dermatological: Incision healed and without surrounding erythema, drainage or other SOI. Musculoskeletal/Orthopaedic: No R calf pain +POP plantar heel R Radiographs: osteopenia noted to the R hallux likely due to decreased bone density No results found for: HBA1C ) ASSESSMENT: 1. Mass of foot, right - ICD9: 782.2, ICD10: R22.41 (primary diagnosis) 2. Post-operative state - ICD9: V45.89, ICD10: Z98.890 Plan: Post op visit and exam XR reviewed with patient and compared with previous Discussed operative procedure in detail and answered all questions WB to the operative foot in post op shoe RICE Pain medication prn Unclear whether mass identified on US was within plantar fascia, leading to suspicion of fibroma (from report OSH) Orders Placed This Encounter CONSULT FOR RAD 2ND READ Order Specific Question: Do you have the Study Accession #: Answer: Yes, Enter Acn # in box below Order Specific Question: Enter the Accession # here: Answer: [id number] Order Specific Question: Identify Body Part (Radiology Subspeciality): Answer: Musculoskeletal Imaging Order Specific Question: Specify reason for overread request: Answer: Previous report is inadequate. Order Specific Question: Describe the missing information: Answer: mass within the plantar fascia or superficial/deep to it; unclear; plantar fibroma? Homegoing instructions RTC 4 weeks with a repeat XR prior Portions of the documentation from the previous visit of 03/03/23 was copied and pasted, documentation has been reviewed and edited as necessary for today's visit. SIGNATURE: Pedro Pablo Parker DPM PATIENT NAME: Barrie Lawson DATE: December 11, 2023 TIME: 8:43 AM CNOV Observed: 12/11/2023 12:30 PM Status: COMPLETED Source: [facility] Office Visit (PODITW) BARRIE LAWSON ([id number]) 1960 F Date Time Provider Department 12/11/23 12:30 PM PEDRO PABLO PARKER PODITW During your visit today, we recorded the following information about you: Pedro Pablo Parker DPM 12/30/2023 11:44 AM Signed SERVICE DATE: December 11, 2023 PCP: Pascual Maher Jr, DO Subjective Patient ID: Barrie is a 63 year old female. Chief Complaint: Post-op visit Patient presents with: Right Foot - Post Op PAIN EVALUATION No data found in the last 1 encounters. HPI s/p Left 1st MPJ arthrodesis Review of Systems Constitutional: Negative. HENT: Negative. Respiratory: Negative. Cardiovascular: Negative. Gastrointestinal: Negative. Endocrine: Negative. Skin: Negative. Neurological: Positive for numbness. Hematological: Negative. Musculoskeletal: Negative. ACTIVE PROBLEM LIST Essential Hypertension Former Smoker Other Hyperlipidemia Chronic Diastolic Heart Failure (Hcc) History of Covid-19 Infrarenal Abdominal Aortic Aneurysm (Aaa) Without Rupture (Hcc) Copd (Chronic Obstructive Pulmonary Disease) (Hcc) Electronic Cigarette Use PAST MEDICAL HISTORY No date: AAA (abdominal aortic aneurysm) (HCC) No date: Congestive heart failure (HCC) No date: COPD (chronic obstructive pulmonary disease) (HCC) No date: Diverticulosis 2020: Dyslipidemia No date: Engages in vaping No date: Family history of early CAD 2020: HTN (hypertension) PAST SURGICAL HISTORY No date: APPENDECTOMY No date: COLONOSCOPY SCREENING No date: REMOVAL GALLBLADDER No date: REMV CATARACT EXTRACAP,INSERT LENS; Bilateral No date: SURGERY ADD; Right Comment: bunion on R foot No date: TONSILLECTOMY HX No date: TOTAL ABDOM HYSTERECTOMY Comment: partial FAMILY HISTORY Problem Relation Age of Onset Hypertension Mother Hyperlipidemia Mother other (kidney cancer) Mother Diabetes Mother other (Myocardial infarction) Mother Cancer Father lung No Known Problems Sister other (diverticulosis) Sister No Known Problems Sister No Known Problems Sister Systemic Lupus Erythematosus Sister Hypertension Brother Neuropathy Brother Hyperlipidemia Brother other (testicutlar cancer) Brother No Known Problems Brother Cancer Brother testicular cancer Anesthesia Problems No Family History Blood Clots No Family History Clotting Disorder No Family History Social History Tobacco Use Smoking status: Former Packs/day: 0.25 Years: 42.00 Additional pack years: 0.00 Total pack years: 10.50 Types: Cigarettes Quit date: 11/2022 Years since quittin.1 Smokeless tobacco: Current Tobacco comments: currently vapes Vaping Use Vaping Use: current everyday user Substances: Nicotine Devices: Disposable Substance Use Topics Alcohol use: Not Currently Drug use: Never ALLERGIES Allergen Reactions Angolan Cockroach * Hives Apples Hives Carvedilol Intolerance Sinus congestion Dust Mites Hives Fish Containing Pro* Other: See Comments Allergy to Cod/flounder/halibut Grass Pollen-Kentuc* Intolerance Tree Pollen-Beba* Intolerance Clifton Pollen-Kochia * Intolerance Clifton Pollen-Western* Other: See Comments Wheat Other: See Comments Wheat Pollen And Whole Grain MEDICATIONS: promethazine (PHENERGAN) 25 mg tablet Take 1 tablet by mouth every 6 hours as needed. aspirin 325 mg tablet Take 1 tablet by mouth once daily. docusate sodium (COLACE) 100 mg capsule Take 1 capsule by mouth two times a day. ergocalciferol 50,000 unit capsule (VITAMIN D2, DRISDOL) Take 1 capsule by mouth one time a week. celecoxib (CELEBREX) 200 mg capsule Take 200 mg by mouth once daily. (Patient not taking: Reported on 09/26/2023) DULoxetine (CYMBALTA) 20 mg capsule Take 20 mg by mouth once daily. (Patient not taking: Reported on 09/26/2023) pitavastatin (LIVALO) 4 mg tablet Take 1 tablet by mouth every afternoon. pkrwoeilktt-wggxhxbiq-gxhzlfmu (TRELEGY ELLIPTA) 200-62.5-25 mcg inhalation powder ezetimibe (ZETIA) 10 mg tablet Take 1 tablet by mouth every afternoon. aspirin 81 mg cap AIRSUPRA 90-80 mcg/actuation inhaler 2 Puffs every 6 hours as needed. romosozumab-aqqg 105 mg/1.17 mL subcutaneous syringe varenicline tartrate (CHANTIX ORAL) Take by mouth. valsartan (DIOVAN) 40 mg tablet Take 1 tablet by mouth once daily. azelastine (ASTELIN) 0.1% nasal spray once daily. ascorbic acid/collagen hydr (COLLAGEN PLUS VITAMIN C ORAL) once daily. C,E,zinc,copper 11/bktmk3b/lut (OCUVITE ADULT 50 PLUS ORAL) once daily. [...] Patient ambulated into the office treatment room. Vascular/Neurological: NVS unchanged +mild edema noted to the operative foot Dermatological: Incision healed and without surrounding erythema, drainage or other SOI. Musculoskeletal/Orthopaedic: No R calf pain +POP plantar heel R Radiographs: osteopenia noted to the R hallux likely due to decreased bone density No results found for: HBA1C ) ASSESSMENT: 1. Mass of foot, right - ICD9: 782.2, ICD10: R22.41 (primary diagnosis) 2. Post-operative state - ICD9: V45.89, ICD10: Z98.890 Plan: Post op visit and exam XR reviewed with patient and compared with previous Discussed operative procedure in detail and answered all questions WB to the operative foot in post op shoe RICE Pain medication prn Unclear whether mass identified on US was within plantar fascia, leading to suspicion of fibroma (from report OSH) Orders Placed This Encounter CONSULT FOR RAD 2ND READ Order Specific Question: Do you have the Study Accession #: Answer: Yes, Enter Acn # in box below Order Specific Question: Enter the Accession # here: Answer: [id number] Order Specific Question: Identify Body Part (Radiology Subspeciality): Answer: Musculoskeletal Imaging Order Specific Question: Specify reason for overread request: Answer: Previous report is inadequate. Order Specific Question: Describe the missing information: Answer: mass within the plantar fascia or superficial/deep to it; unclear; plantar fibroma? Homegoing instructions RTC 4 weeks with a repeat XR prior Portions of the documentation from the previous visit of 03/03/23 was copied and pasted, documentation has been reviewed and edited as necessary for today's visit. SIGNATURE: Pedro Pablo Parker DPM PATIENT NAME: Barrie Lawson DATE: December 11, 2023 TIME: 8:43 AM Pedro Pablo Parker DPM 12/11/2023 1:35 PM Signed Recommended Shoe Store List [employer] [address] [place] [address] [employer] [address] [facility] [place], [place] [phone] [employer] [address] [place] [employer] [facility] [address] [address] [place], [place] [phone] 4828 [place], [place] [phone] [address] [facility]. [place], [place] [phone] [employer] [address] [place], [place] [address] [employer] [address] [facility] [place], [place] [phone] [employer] [address] [facility] [facility]. [place], [place] [phone] [address] [facility] [place] [address] [employer] [address] [facility]. [place], [place] [phone] [employer] [address] [facility] [address] [place], [place] [phone] [facility]-multiple locations, look online [facility] [address] [place] [address] Mar[employer]lilian [address] [place], [place] [phone] [place] [address] [facility] [place], [place] [phone] 7[address] [facility]. [place], [place] [address] [facility]. [place], [place] [phone] [employer] [address] [facility]. [place], [place] [phone] [id number] [address] [place], [place] [phone] 5[address] [facility]. [place], [place] [phone] [address] [place] [address] [address] [place], [place] [phone] [employer] [address] [facility]. [place], [place] [phone] Step In [address] [place] [address]. [place], [place] [phone] [employer]ner [address] [facility] [address] [employer]ner 7047 [facility] [address] Inserts / Orthotics Walk hero insoles (full length and 3/4 length) OVIVO Mobile Communicationstep inserts- full length --Second sole Entriken or [place] (r [place]) -Foot solutions - $45 -BBspace - $35 [facility] - $35 Minglebox PROTALUS - online purchase New Balance Pressure Relief Powersteps www.Ionix Medical Inserts- full length Full length and 3/4 length $25 (BBspace for example) Second sole (address as listed) Foot solutions - $45 Spenco moldable arch supports www.[email or web address] [employer].Chartbeat $20-- Drug [place] BBspace Superfeet inserts: www.dickssportinggoods.com Dicks Sporting goods: Wear these at all times. Take out the existing inserts in your shoes prior to putting the Insoles If you get the 3/4 length inserts you do NOT have to take the insoles in your shoes out. Sandals: Mariposa Reynoso Robert shoes Orthaheel Vionics: DSW, BBspace Walk hero flip flops: BBspace Oofos [place] steppers for high arch. Recommended Footwear Vendors- [facility] CASUAL FOOTWARE [employer] [address] [place], [place] Vicente's [address] [facility] [phone] [employer] [address] [place], [place] [phone] [employer] [address] [place], [place] [phone] [employer] [address] [facility] [address] [place], [place] [phone] [employer] [address] [place], [place] [phone] Foot Solutions 3[address] [place], [place] [phone] [employer] [address] [place], [place] [employer] [address] [address] [place], [place] [employer] [address] [address] [employer] [address] [place], [place] The Rapid Pathogen Screening On-Line only N/A WalkingDraftster Healthy Feet Store PositronicsFePosiGen Solar Solutions Good Feet Store [address] [place], [place] [phone] Good Feet Store [address] [place], [place] [phone] ATHLETIC SHOES [facility] [address] [place] [address] Aleksandr Sporting Goods [address] [place], [place] [phone] Step-In [address] [place] [place], [place] [phone] [employer]et [employer] [address] [place], [place] [phone] [employer] [address] [place], [place] [phone] [employer] [address] [place], [place] [phone] Lesley [employer]ing Good[employer] [address] [place] [phone] Knierim Sporting Goods [address] [place], [place] [phone] New Balance Shoes Factory Store [address] [place], [place] [phone] Rube Nelbeeing PassHat [address] [place], [place] [phone] Second Sole Athletic Footwear [address] [place], [place] [phone] Second Sole Athletic [facility]wear [address] [place] [phone] Second Sole Athletic Footwear 8791 [facility]. [place], [place] [phone] Second Sole Athletic Footwear [address] [place], [place] [phone] Second Sole Athletic Footwear [address] [place], [place] [phone] Sports Xpress [address] [place], [place] [phone] ORTHOTICS PROSTHETICS [facility] [address] [place], [place] [phone] Orthotic AND Prosthetic Specialties [address] [place], [place] [phone] Orthotic AND Prosthetic Specialties 283 [place], [place] [facility] Shoes Pedorthics AND Repair [address] [place] [phone] Legal Investigator Prosthetic AND Orthotics [address] A [facility] [phone] 7007 W[address] [facility] [phone] 31235 [place], [place] [phone] [facility]up [facility] Prosthetics 6100 [place], [place] [phone] 4604 [place] [phone] 2119 Kathryn [facility], [place] [phone] [address]. [place], [place] [phone] [place], [place] [phone] [address] [facility] [address] [place], [place] [phone] 1444 [place], [place] [phone] [place], [place] [phone] 2300 [place], [place] [phone] 265 [facility]. [place], [place] [phone] Kyle Hutton Prosthetic [facility] Orthotics [address] [place], [place] [phone] [facility] [place], [place] [phone] [facility] [address]45 [place], [place] [phone] [facility] 6478 [place], [place] [phone] 4610 [place], [place] [phone] 5407 [place], [place] [phone] 28350 [address]. [place], [place] [address] [facility] [address] [place], [place] [phone] Mar-Lilian Shoes 5471 [facility] [place], [place] [facility] [address] [facility] [address] [place], [place] [phone] [phone] 437 [place], [place] Valente Professional Bldg. [address] [place], [place] [phone] The G[facility] Lab Product/Service in [place] [address], [address] [place], [place] [phone] Orthopedic Shoes Channing's [employer] [facility] 59071 [facility], [place] [phone] Sam's Shoes [address] [place], [place] [phone] Work Shoes and Boots [place] [address] [place], [place] [phone], [place], [place] [phone] 4131 [place], [place] [address] [place], [place] [phone] [facility]. [place] [phone] [address] [facility] [address], [place] [address] [place], [place] [phone] 8210 [place], [place] [phone] [place], [place] Stride Rite [employer]ery [address] [place], [place] [phone] [address] [place] [address] [place], [place] [phone] Legal Investigator Prosthetics AND Orthotics 1 [facility] Johnie.140 [place], [place] [phone] [place] [address] [address] [place], [place] [phone] Walk Rite [address] [place], [place] [phone] C' Mike Shoes [address] [place] [phone] Recommended Running Shoes Claude Wallace Asics New Balance Mamie Richardson RN 12/18/2023 11:45 AM Signed Left foot US images uploaded into system. Results in chart. Mamie Gamez RN Referring Provider: PEDRO PABLO PARKER [[id number]] Allergies As of Date: 12/11/2023 Noted Allergy Reaction SWISS COCKROACH ALLERGENIC EXT*07/07/2020 4 - Hives APPLES 07/07/2020 4 - Hives CARVEDILOL 09/08/2023 5 - Intolerance Comments: Sinus congestion DUST MITES 07/07/2020 4 - Hives FISH CONTAINING PRODUCTS 07/07/2020 14 - Other: See Comments Comments: Allergy to Cod/flounder/halibut GRASS POLLEN-RHONDA MOBLEY, STAND*07/07/2020 5 - Intolerance TREE POLLEN-SWISS ELM 07/07/2020 5 - Intolerance WEED POLLEN-KOCHIA (FIREBUSH) 07/07/2020 5 - Intolerance WEED POLLEN-WESTERN RAGWEED 07/07/2020 14 - Other: See Comments WHEAT 07/07/2020 14 - Other: See Comments Comments: Wheat Pollen And Whole Grain Date Reviewed: 12/11/2023 Reviewed by: Pedro Pablo Parker DPM - Fully Assessed Reason for Visit: Post Op [174] Primary Visit Diagnosis:Mass of foot, right [R22.41] Other Visit Diagnosis:Post-operative state [Z98.890] Order(s):CONSULT FOR RAD 2ND READ [[id number]] Order #: [id number]: 1 Prescriptions as of 01/05/2024 - promethazine (PHENERGAN) 25 mg tablet Take 1 tablet by mouth every 6 hours as needed. - aspirin 325 mg tablet Take 1 tablet by mouth once daily. - docusate sodium (COLACE) 100 mg capsule Take 1 capsule by mouth two times a day. - ergocalciferol 50,000 unit capsule (VITAMIN D2, DRISDOL) Take 1 capsule by mouth one time a week. - celecoxib (CELEBREX) 200 mg capsule Take 200 mg by mouth once daily. - DULoxetine (CYMBALTA) 20 mg capsule Take 20 mg by mouth once daily. - pitavastatin (LIVALO) 4 mg tablet Take 1 tablet by mouth every afternoon. - sedxopveazk-bacyywrtb-pafdbseq (TRELEGY ELLIPTA) 200-62.5-25 mcg inhalation powder - ezetimibe (ZETIA) 10 mg tablet Take 1 tablet by mouth every afternoon. - aspirin 81 mg cap - AIRSUPRA 90-80 mcg/actuation inhaler 2 Puffs every 6 hours as needed. - romosozumab-aqqg 105 mg/1.17 mL subcutaneous syringe - varenicline tartrate (CHANTIX ORAL) Take by mouth. - valsartan (DIOVAN) 40 mg tablet Take 1 tablet by mouth once daily. - azelastine (ASTELIN) 0.1% nasal spray once daily. - ascorbic acid/collagen hydr (COLLAGEN PLUS VITAMIN C ORAL) once daily. - C,E,zinc,copper 11/keieh0y/lut (OCUVITE ADULT 50 PLUS ORAL) once daily. [...] as needed. Problem List As Of Date 12/11/2023 Noted Resolved Essential hypertension [I10] 07/07/2020 Former smoker [Z87.891] 07/07/2020 Other hyperlipidemia [E78.49] 07/07/2020 Chronic diastolic heart failure (HCC) [I50.32] 07/25/2020 History of COVID-19 [Z86.16] 11/14/2020 Infrarenal abdominal aortic aneurysm (AAA) with*12/30/2022 COPD (chronic obstructive pulmonary disease) (H*09/08/2023 GERD (gastroesophageal reflux disease) [K21.9] 09/08/2023 09/08/2023 Electronic cigarette use [Z78.9] 09/08/2023 Other instructions from your clinician: Recommended Shoe Store List [facility] [address] [place] [address] 44094 ChanningAdhereTxs Shoe Tree 83349 [facility]. [place], [place] [phone] Julian [facility]oes [address] [facility] [address] [facility]4 [place], [place] [phone] 4828 [place], [place] [phone] 600 [facility]. [place], [place] [phone] Comfort Wear [address] [phone] Foot Solutions [address] [place], [place] [phone] [employer] [address] [place], [place] [phone] [address] [facility] [place] [address] [place] [address] Knierim Sporting Good 96890 [facility] [place], [place] [phone] Janaudreyi's Shoes [address] [facility] [address] [place], [place] [phone] [facility]-multiple locations, look online [facility] Bldg [address] [place] [address] Mar-lilian 5471 [facility]. [place], [place] [phone] [place] 4585 [facility]. [place], [place] [phone] 7562 [facility]. [place], [place] [address] [phone] 29670 [facility]. [place], [place] [phone] Second Sole Athletic Footwear 8791 [facility]. [place], [place] [phone] [facility] [address] [place], [place] [phone] [facility]. [place], [place] [phone] 57[address] [place] [address] [address] [place], [place] [phone] [facility] [address] [facility]. [place], [place] [phone] Step In [address] [place] [address]. [place], [place] [phone] Vertical Runner 112 N [facility] [address] Vertical Runner 7059 [facility] [address] Inserts / Orthotics Walk hero insoles (full length and 3/4 length) BBspace powerstep inserts- full length --Second sole Entriken or [place] (r [place] and [place]) -Foot solutions - $45 -BBspace - $35 [facility] pharmacy - $35 Minglebox PROTALUS - online purchase New Balance Pressure Relief Powersteps www.Great Lakes Pharmaceuticalsteps.Chartbeat Inserts- full length Full length and 3/4 length $25 (BBspace for example) Second sole (address as listed) Foot solutions - $45 Spenco moldable arch supports www.spenco.Chartbeat $20-- Drug [place] BBspace Superfeet inserts: www.dickssportinggoods.Chartbeat Dicks Sporting goods: Wear these at all times. Take out the existing inserts in your shoes prior to putting the Insoles If you get the 3/4 length inserts you do NOT have to take the insoles in your shoes out. Sandals: Mariposa Reynoso Robert shoes Orthaheel Vionics: DSW, BBspace Walk hero flip flops: BBspace Oofos [place] steppers for high arch. Recommended Footwear Vendors- [facility] CASUAL FOOTWARE Al Kat's [facility]oe[facility] [address] [place], [place] Vicente's [address] [facility] [phone] Julian Shoes 600 [place], [place] [phone] Julian [employer]oes [address] [place], [place] [phone] Julian Shoes 4828 [facility] Rd[place], [place] [phone] Julian Shoes [address] [place], [place] [phone] Foot Solutions 3355 [place], [place] [phone] Sarath Shoes [address] [place], [place] Sarath Shoes [address] [facility]. [place], [place] Vionic Shoes [facility] 251 [place] [address] Vionic Shoes [address] [place], [place] The Rapid Pathogen Screening On-Line only N/A WalkingDraftster Healthy Feet Store PositronicsFePosiGen Solar Solutions Good Feet Store [address] [place], [place] [phone] Good Feet Store 220 [place], [place] [phone] ATHLETIC SHOES [facility] [address] [place], [place] [phone] Aleksandr Sporting Goods [address] [place], [place] [phone] Step-In 5 [place], [place] [phone] [employer] [address] [place], [place] [phone] [employer] [address] [place], [place] [phone] [employer] [address] [place], [place] [phone] MixRank Sporting PassHat [address] [place], [place] [phone] Lesley Sporting Goods [address] [place], [place] [phone] New Balance Shoes Factory Store [address] [place], [place] [phone] Rube ADS-B [facility]pres[facility] Supercell [address] [place], [place] [phone] Second Sole Athletic Footwear [address] [place], [place] [phone] Second Sole Athletic Footwear [address] [place] [phone] Second Sole Athletic Footwear [address] [place], [place] [phone] Second Sole Athletic Footwear [address] [place], [place] [phone] Second Sole Athletic Footwear [address] [place], [place] [phone] Sports Xpress 9[address] [place], [place] [phone] ORTHOTICS PROSTHETICS [facility] 582 [place], [place] [phone] Orthotic AND Prosthetic Specialties [address] [place], [place] [phone] Orthotic AND Prosthetic Specialties 283 [place], [place] Isai Holbrook Shoes Pedorthics AND Repair [address] [place] [phone] Legal Investigator Prosthetic AND Orthotics [address] A [facility] [phone] 7007 [facility] [phone] 47006 [place], [place] [phone] [facility] Orth[facility] AND Prosthetics 6100 [place], [place] [phone] 4604 [place], [place] [phone] 2119 [address]ar[address] [place], [place] [phone] [address] [place] [phone] [address] [place], [place] [phone] [address] [facility] [address] [place], [place] [phone] 1444 [place], [place] [phone] [place], [place] [phone] 2300 [place], [place] [phone] 265 [facility]. [place], [place] [phone] Kyle Hutton Prosthetic AND Orthotics 8180 [place], [place] [phone] [facility], [place] [phone] [facility] 55627 [place], [place] [phone] [facility] 6478 [place], [place] [phone] 4627 [place], [place] [phone] 5401 [place], [place] [phone] 28350 [address]real. [place], [place] [address] [facility] [address] [place], [place] [phone] [facility] 5471 [facility] [place], [place] [facility] [address] [facility] [address] [place], [place] [phone] [phone] [address] [place] [facility] Professional Bldg. [address] [place], [place] [phone] The Gait Lab Product/Service in [place] [address] [place], [place] [phone] Orthopedic Shoes Channing's Shoe Tree 04231 [facility], [place] [phone] Sam's Shoes [address] [place], [place] [phone] Work Shoes and Boots [place] [address] [place], [place] [phone], [place], [place] [phone] 4131 [facility], [place] 4583 [facility]. [place], [place] [phone] [facility]. [place] [phone] [facility] [address], [place] [address] [place], [place] [phone] 8238 [place], [place] [phone] [place], [place] Stride Rite Bootery [address] [place], [place] [phone] [address] [place] [address] [place], [place] [phone] Legal Investigator Prosthetics AND Orthotics 1 [facility] Johnie.140 [place], [place] [phone] [place] [address] [place], [place] [phone] Walk Rite [address] [facility] Hospital[facility] osorio [phone] C' Mike Shoes [address] [place], [place] [phone] Recommended Running Shoes Arce Madison Sanzs New Balance [facility] Visit Notes: >> Mamie Gamez RN [facility] Dec 18, 2023 11:44 AM Status: Signed Left foot US images uploaded into system. Results in chart. Mamie Gamez RN Encounter Status:Closed by PEDRO PABLO PARKER on 12/30/23 PROGRESS Observed: 12/11/2023 12:00 PM Status: COMPLETED Source: [facility] HNO ID: [id number] Author: ANTONY BISHOP RT(R) Service: ? Author Type: Wireless Sales Representative Type: Progress Notes Filed: 12/11/2023 11:53 Note Text: Radiology Service Progress Note PATIENT NAME: Barrie Lawson DATE OF SERVICE: December 11, 2023 TIME: 11:53 AM PATIENT IDENTITY VERIFICATION COMPLETED USING TWO (2) IDENTIFIERS: Name and Date of confirmed by patient verbally. FALL SCREENING: Has the patient had 2 falls in the last year or 1 fall with injury or currently using an Ambulatory Assistive Device (Walker, Cane, Wheelchair, Crutches, etc.)? No PATIENT GENDER DATA: Female. status: : No status: NO. PATIENT RELEVANT IMPLANT DATA REVIEWED: Not Applicable PATIENT PRESENTS WITH AN IMPLANTABLE OR ATTACHED INFORMATION TECHNOLOGY SECURITY MANAGER: No RADIOLOGY DEPARTMENT: General X-ray: Exam(s) Completed: Lower Extremity X-Ray(s): Foot, Right PERIPHERAL IV DATA: Not applicable SIGNED BY: RT Gustavo(R) December 11, 2023 11:53 AM XR FOOT 3V AP/LAT/OBL RT Observed: 12/10 11:53 AM Status: F Source: [facility] * * *Final Report* * * DATE OF EXAM: Dec 11 2023 11:53AM TWX [id number] - XR FOOT 3V AP/LAT/OBL RT / PROCEDURE REASON: Post-operative state * * * * Physician Interpretation * * * * HISTORY: Post-operative state . TECHNIQUE: XR FOOT 3V AP/LAT/OBL RT Laterality: RIGHT Number of different views (projections): 3 COMPARISON: Radiographs dated 11/12/2023. RESULT: Again seen are the postoperative changes with first MTP arthrodesis. Hardware is intact with no evidence of loosening. Also again seen is a remote nonhealed fracture in the fifth metatarsal base. Osteoarthritis throughout the foot. No soft tissue swelling. Limited evaluation of the contralateral foot with no acute findings. No other significant abnormality. IMPRESSION: No acute findings. Assistant Pastry Chef: CHIQUI Transcribe Date/Time: Dec 11 2023 1:06P Dictated by : EMERSON GALLO MD This examination was interpreted and the report reviewed and electronically signed by: EMERSON GALLO MD on Dec 11 2023 1:07PM EST [id number] Observed: 11/13/2023 12:00 AM Status: COMPLETED Source: [facility] Telephone (RULTTB) BARRIE LAWSON ([id number]) 1960 F Date Time Provider Department 11/13/23 JUNIOR MARINA RULTTB During your visit today, we recorded the following information about you: Junior Marina 11/13/2023 3:07 PM Addendum Visit Type: ANY MSK Visit Length: 45, 50 OR 60 MINUTES Order Name/Protocol: US EXTREMITY MASS/FLUID COLLECTION RT; EVAL RT MEDIAL BAND OF PLANTAR FOOT FOR FIRM NODULE MEASURING 2.0 CM IN DIAMETER Preferred Provider: N/A Comment: Pt confirmed this was so scan right foot. Do not link the US EXT MASS LT order. An order correction is forthcoming. Location: ANY FACILITY Slot held: N/A Crista Lofton 11/13/2023 3:35 PM Signed Patient has been scheduled for their MSK US exam on 12/11/23 : 12:45 PM at [place]. Junior Marina 03/15/2024 2:37 PM Signed Patient called the MSK US Department back on 03/15/24 at 2:32 PM to reschedule a canceled appointment. Please give this patient a call back to ensure that they receive an appointment. Crista Lofton 03/15/2024 2:57 PM Addendum Patient has been rescheduled for their MSK US exam on 05/06/24 : 12:45 PM at [facility]. Allergies As of Date: 11/13/2023 Noted Allergy Reaction SWISS COCKROACH ALLERGENIC EXT*07/07/2020 4 - Hives APPLES 07/07/2020 4 - Hives CARVEDILOL 09/08/2023 5 - Intolerance Comments: Sinus congestion DUST MITES 07/07/2020 4 - Hives FISH CONTAINING PRODUCTS 07/07/2020 14 - Other: See Comments Comments: Allergy to Cod/flounder/halibut GRASS POLLEN-RHONDA BLUE, STAND*07/07/2020 5 - Intolerance TREE POLLEN-SWISS ELM 07/07/2020 5 - Intolerance WEED POLLEN-KOCHIA (FIREBUSH) 07/07/2020 5 - Intolerance WEED POLLEN-WESTERN RAGWEED 07/07/2020 14 - Other: See Comments WHEAT 07/07/2020 14 - Other: See Comments Comments: Wheat Pollen And Whole Grain Date Reviewed: 11/12/2023 Reviewed by: Pedro Pablo Parker DPM - Fully Assessed Reason for Visit: Appointment Rescheduled [1024] Prescriptions as of 03/15/2024 - promethazine (PHENERGAN) 25 mg tablet Take 1 tablet by mouth every 6 hours as needed. - aspirin 325 mg tablet Take 1 tablet by mouth once daily. - docusate sodium (COLACE) 100 mg capsule Take 1 capsule by mouth two times a day. - ergocalciferol 50,000 unit capsule (VITAMIN D2, DRISDOL) Take 1 capsule by mouth one time a week. - celecoxib (CELEBREX) 200 mg capsule Take 200 mg by mouth once daily. - DULoxetine (CYMBALTA) 20 mg capsule Take 20 mg by mouth once daily. - pitavastatin (LIVALO) 4 mg tablet Take 1 tablet by mouth every afternoon. - dagiusofhrl-ucizjqyqr-cnjyjepv (TRELEGY ELLIPTA) 200-62.5-25 mcg inhalation powder - ezetimibe (ZETIA) 10 mg tablet Take 1 tablet by mouth every afternoon. - aspirin 81 mg cap - AIRSUPRA 90-80 mcg/actuation inhaler 2 Puffs every 6 hours as needed. - romosozumab-aqqg 105 mg/1.17 mL subcutaneous syringe - varenicline tartrate (CHANTIX ORAL) Take by mouth. - valsartan (DIOVAN) 40 mg tablet Take 1 tablet by mouth once daily. - azelastine (ASTELIN) 0.1% nasal spray once daily. - ascorbic acid/collagen hydr (COLLAGEN PLUS VITAMIN C ORAL) once daily. - C,E,zinc,copper 11/tqgfp1j/lut (OCUVITE ADULT 50 PLUS ORAL) once daily. [...] as needed. Problem List As Of Date 11/13/2023 Noted Resolved Essential hypertension [I10] 07/07/2020 Former smoker [Z87.891] 07/07/2020 Other hyperlipidemia [E78.49] 07/07/2020 Chronic diastolic heart failure (HCC) [I50.32] 07/25/2020 History of COVID-19 [Z86.16] 11/14/2020 Infrarenal abdominal aortic aneurysm (AAA) with*12/30/2022 COPD (chronic obstructive pulmonary disease) (H*09/08/2023 GERD (gastroesophageal reflux disease) [K21.9] 09/08/2023 09/08/2023 Electronic cigarette use [Z78.9] 09/08/2023 Encounter Status:Closed by CRISTA LOFTON on 11/13/23 PROGRESS Observed: 11/12/2023 1:45 PM Status: COMPLETED Source: [facility] HNO ID: [id number] Author: PEDRO PABLO PARKER DPM Service: ? Author Type: Physician Type: Progress Notes Filed: 11/30/2023 19:45 Note Text: SERVICE DATE: November 12, 2023 PCP: Pascual Maher Jr, DO Subjective Patient ID: Barrie is a 63 year old female. Chief Complaint: Patient presents with: Right Foot - Post Op PAIN EVALUATION No data found in the last 1 encounters. HPI Review of Systems Constitutional: Negative. HENT: Negative. Respiratory: Negative. Cardiovascular: Negative. Gastrointestinal: Negative. Endocrine: Negative. Skin: Negative. Neurological: Negative. Hematological: Negative. Musculoskeletal: Negative. ACTIVE PROBLEM LIST Essential Hypertension Former Smoker Other Hyperlipidemia Chronic Diastolic Heart Failure (Hcc) History of Covid-19 Infrarenal Abdominal Aortic Aneurysm (Aaa) Without Rupture (Hcc) Copd (Chronic Obstructive Pulmonary Disease) (Hcc) Electronic Cigarette Use PAST MEDICAL HISTORY Diagnosis Date AAA (abdominal aortic aneurysm) (HCC) Congestive heart failure (HCC) COPD (chronic obstructive pulmonary disease) (HCC) Diverticulosis Dyslipidemia 2019 Engages in vaping Family history of early CAD HTN (hypertension) 2019 PAST SURGICAL HISTORY Procedure Laterality Date APPENDECTOMY COLONOSCOPY SCREENING REMOVAL GALLBLADDER REMV CATARACT EXTRACAP,INSERT LENS Bilateral [...] Known Problems Brother Cancer Brother testicular cancer Anesthesia Problems No Family History Blood Clots No Family History Clotting Disorder No Family History Social History Tobacco Use Smoking status: Former Packs/day: 0.25 Years: 42.00 Additional pack years: 0.00 Total pack years: 10.50 Types: Cigarettes Quit date: 11/2022 Years since quittin.0 Smokeless tobacco: Current Tobacco comments: currently vapes Vaping Use Vaping Use: current everyday user Substances: Nicotine Devices: Disposable Substance Use Topics Alcohol use: Not Currently Drug use: Never ALLERGIES Allergen Reactions Angolan Cockroach * Hives Apples Hives Carvedilol Intolerance Sinus congestion Dust Mites Hives Fish Containing Pro* Other: See Comments Allergy to Cod/flounder/halibut Grass Pollen-Kentuc* Intolerance Tree Pollen-Beba* Intolerance Clifton Pollen-Kochia * Intolerance Cl[place]ton Pollen-Western* Other: See Comments Wheat Other: See Comments Wheat Pollen And Whole Grain MEDICATIONS: promethazine (PHENERGAN) 25 mg tablet Take 1 tablet by mouth every 6 hours as needed. aspirin 325 mg tablet Take 1 tablet by mouth once daily. docusate sodium (COLACE) 100 mg capsule Take 1 capsule by mouth two times a day. ergocalciferol 50,000 unit capsule (VITAMIN D2, DRISDOL) Take 1 capsule by mouth one time a week. celecoxib (CELEBREX) 200 mg capsule Take 200 mg by mouth once daily. (Patient not taking: Reported on 09/26/2023) DULoxetine (CYMBALTA) 20 mg capsule Take 20 mg by mouth once daily. (Patient not taking: Reported on 09/26/2023) pitavastatin (LIVALO) 4 mg tablet Take 1 tablet by mouth every afternoon. kfukvqymbax-cfvbqkgtr-qopbeilv (TRELEGY ELLIPTA) 200-62.5-25 mcg inhalation powder ezetimibe (ZETIA) 10 mg tablet Take 1 tablet by mouth every afternoon. aspirin 81 mg cap AIRSUPRA 90-80 mcg/actuation inhaler 2 Puffs every 6 hours as needed. romosozumab-aqqg 105 mg/1.17 mL subcutaneous syringe varenicline tartrate (CHANTIX ORAL) Take by mouth. valsartan (DIOVAN) 40 mg tablet Take 1 tablet by mouth once daily. azelastine (ASTELIN) 0.1% nasal spray once daily. ascorbic acid/collagen hydr (COLLAGEN PLUS VITAMIN C ORAL) once daily. C,E,zinc,copper 11/pctee4u/lut (OCUVITE ADULT 50 PLUS ORAL) once daily. [...] Patient ambulated into the office treatment room. Vascular/Neurological: NVS unchanged +mild edema noted to the operative foot Dermatological: Incision healed and without surrounding erythema, drainage or other SOI. Musculoskeletal/Orthopaedic: No R calf pain Radiographs: osteopenia noted to the R hallux likely due to decreased bone density Last XR Foot - Impression Only XR FOOT GENERAL 3V AP/LAT/OBL RIGHT Exam End: 11/12/2023 1:45 PM (Final result) Impression: IMPRESSION: 1. Stable postsurgical changes of RIGHT first metatarsophalangeal arthrodesis. Assistant Pastry Chef: CHIQUI Transcribe Date/Time: Nov 12 2023 2:56P... ASSESSMENT: 1. Post-operative state - ICD9: V45.89, ICD10: Z98.890 (primary diagnosis) 2. Pain of right heel - ICD9: 729.5, ICD10: M79.671 s/p Right foot 1st metatarsophalangeal arthrodesis performed on 09/30/23 Plan: Post op visit and exam XR reviewed with patient and compared with previous Discussed operative procedure in detail and answered all questions WB to the operative foot in post op shoe RICE Pain medication prn Orders Placed This Encounter XR FOOT GENERAL 3V AP/LAT/OBL RIGHT Standing Status: Future Standing Expiration Date: 12/11/2024 Homegoing instructions RTC 4 weeks with a repeat XR prior SIGNATURE: Pedro Pablo Parker DPM PATIENT NAME: Barrie Lawson DATE: November 12, 2023 TIME: 9:05 AM XR FOOT 3V AP/LAT/OBL RT Observed: 11/11 1:45 PM Status: F Source: [facility] * * *Final Report* * * DATE OF EXAM: Nov 12 2023 1:45PM TWX [id number] - XR FOOT 3V AP/LAT/OBL RT / PROCEDURE REASON: Pain * * * * Physician Interpretation * * * * RIGHT foot x-rays: HISTORY: Postop arthrodesis TECHNIQUE: 3 views were obtained. COMPARISON: 09/30/2023 RESULT: The previously demonstrated casting material has been removed. Again demonstrated is arthrodesis of the first metatarsophalangeal joint with a dorsal plate with interlocking screws. Hardware remains intact. Flexion deformities of the second and third digits appear unchanged. Joint space narrowing is present at the third and fourth tarsometatarsal joints. IMPRESSION: 1. Stable postsurgical changes of RIGHT first metatarsophalangeal arthrodesis. Assistant Pastry Chef: CHIQUI Transcribe Date/Time: Nov 12 2023 2:56P Dictated by : BLAISE CHADWICK MD This examination was interpreted and the report reviewed and electronically signed by: BLAISE CHADWICK MD on Nov 12 2023 2:58PM EST [id number] CNOV Observed: 11/12/2023 1:45 PM Status: COMPLETED Source: [facility] Office Visit (PODITW) BARRIE LAWSON ([id number]) 1960 F Date Time Provider Department 11/12/23 1:45 PM PEDRO PABLO PARKER PODITW During your visit today, we recorded the following information about you: Pedro Pablo Parker DPM 11/30/2023 7:45 PM Signed SERVICE DATE: November 12, 2023 PCP: Pascual Maher Jr, DO Subjective Patient ID: Barrie is a 63 year old female. Chief Complaint: Patient presents with: Right Foot - Post Op PAIN EVALUATION No data found in the last 1 encounters. HPI Review of Systems Constitutional: Negative. HENT: Negative. Respiratory: Negative. Cardiovascular: Negative. Gastrointestinal: Negative. Endocrine: Negative. Skin: Negative. Neurological: Negative. Hematological: Negative. Musculoskeletal: Negative. ACTIVE PROBLEM LIST Essential Hypertension Former Smoker Other Hyperlipidemia Chronic Diastolic Heart Failure (Hcc) History of Covid-19 Infrarenal Abdominal Aortic Aneurysm (Aaa) Without Rupture (Hcc) Copd (Chronic Obstructive Pulmonary Disease) (Hcc) Electronic Cigarette Use PAST MEDICAL HISTORY Diagnosis Date AAA (abdominal aortic aneurysm) (HCC) Congestive heart failure (HCC) COPD (chronic obstructive pulmonary disease) (HCC) Diverticulosis Dyslipidemia 2019 Engages in vaping Family history of early CAD HTN (hypertension) 2019 PAST SURGICAL HISTORY Procedure Laterality Date APPENDECTOMY COLONOSCOPY SCREENING REMOVAL GALLBLADDER REMV CATARACT EXTRACAP,INSERT LENS Bilateral [...] Known Problems Brother Cancer Brother testicular cancer Anesthesia Problems No Family History Blood Clots No Family History Clotting Disorder No Family History Social History Tobacco Use Smoking status: Former Packs/day: 0.25 Years: 42.00 Additional pack years: 0.00 Total pack years: 10.50 Types: Cigarettes Quit date: 11/2022 Years since quittin.0 Smokeless tobacco: Current Tobacco comments: currently vapes Vaping Use Vaping Use: current everyday user Substances: Nicotine Devices: Disposable Substance Use Topics Alcohol use: Not Currently Drug use: Never ALLERGIES Allergen Reactions Angolan Cockroach * Hives Apples Hives Carvedilol Intolerance Sinus congestion Dust Mites Hives Fish Containing Pro* Other: See Comments Allergy to Cod/flounder/halibut Grass Pollen-Kentuc* Intolerance Tree Pollen-Beba* Intolerance Clifton Pollen-Kochia * Intolerance [place]ifton Pollen-Western* Other: See Comments Wheat Other: See Comments Wheat Pollen And Whole Grain MEDICATIONS: promethazine (PHENERGAN) 25 mg tablet Take 1 tablet by mouth every 6 hours as needed. aspirin 325 mg tablet Take 1 tablet by mouth once daily. docusate sodium (COLACE) 100 mg capsule Take 1 capsule by mouth two times a day. ergocalciferol 50,000 unit capsule (VITAMIN D2, DRISDOL) Take 1 capsule by mouth one time a week. celecoxib (CELEBREX) 200 mg capsule Take 200 mg by mouth once daily. (Patient not taking: Reported on 09/26/2023) DULoxetine (CYMBALTA) 20 mg capsule Take 20 mg by mouth once daily. (Patient not taking: Reported on 09/26/2023) pitavastatin (LIVALO) 4 mg tablet Take 1 tablet by mouth every afternoon. sddgchwytli-apiobmthy-kywdqgdx (TRELEGY ELLIPTA) 200-62.5-25 mcg inhalation powder ezetimibe (ZETIA) 10 mg tablet Take 1 tablet by mouth every afternoon. aspirin 81 mg cap AIRSUPRA 90-80 mcg/actuation inhaler 2 Puffs every 6 hours as needed. romosozumab-aqqg 105 mg/1.17 mL subcutaneous syringe varenicline tartrate (CHANTIX ORAL) Take by mouth. valsartan (DIOVAN) 40 mg tablet Take 1 tablet by mouth once daily. azelastine (ASTELIN) 0.1% nasal spray once daily. ascorbic acid/collagen hydr (COLLAGEN PLUS VITAMIN C ORAL) once daily. C,E,zinc,copper 11/cyxpv3j/lut (OCUVITE ADULT 50 PLUS ORAL) once daily. [...] Patient ambulated into the office treatment room. Vascular/Neurological: NVS unchanged +mild edema noted to the operative foot Dermatological: Incision healed and without surrounding erythema, drainage or other SOI. Musculoskeletal/Orthopaedic: No R calf pain Radiographs: osteopenia noted to the R hallux likely due to decreased bone density Last XR Foot - Impression Only XR FOOT GENERAL 3V AP/LAT/OBL RIGHT Exam End: 11/12/2023 1:45 PM (Final result) Impression: IMPRESSION: 1. Stable postsurgical changes of RIGHT first metatarsophalangeal arthrodesis. Assistant Pastry Chef: CIHQUI Transcribe Date/Time: Nov 12 2023 2:56P... ASSESSMENT: 1. Post-operative state - ICD9: V45.89, ICD10: Z98.890 (primary diagnosis) 2. Pain of right heel - ICD9: 729.5, ICD10: M79.671 s/p Right foot 1st metatarsophalangeal arthrodesis performed on 09/30/23 Plan: Post op visit and exam XR reviewed with patient and compared with previous Discussed operative procedure in detail and answered all questions WB to the operative foot in post op shoe RICE Pain medication prn Orders Placed This Encounter XR FOOT GENERAL 3V AP/LAT/OBL RIGHT Standing Status: Future Standing Expiration Date: 12/11/2024 Homegoing instructions RTC 4 weeks with a repeat XR prior SIGNATURE: Pedro Pablo Parker DPM PATIENT NAME: Barrie Lawson DATE: November 12, 2023 TIME: 9:05 AM Pedro Pablo Parker DPM 11/12/2023 2:05 PM Signed Please call one of these phone numbers to make an appointment for your ultrasound appointment. [place]: [phone] [facility], [address]: [phone] [place]: [phone] ext. [phone] Referring Provider: PEDRO PABLO PARKER [[id number]] Allergies As of Date: 11/12/2023 Noted Allergy Reaction SWISS COCKROACH ALLERGENIC EXT*07/07/2020 4 - Hives APPLES 07/07/2020 4 - Hives CARVEDILOL 09/08/2023 5 - Intolerance Comments: Sinus congestion DUST MITES 07/07/2020 4 - Hives FISH CONTAINING PRODUCTS 07/07/2020 14 - Other: See Comments Comments: Allergy to Cod/flounder/halibut GRASS POLLEN-EMILIOJelena BLUE, STAND*07/07/2020 5 - Intolerance TREE POLLEN-SWISS ELM 07/07/2020 5 - Intolerance WEED POLLEN-KOCHIA (FIREBUSH) 07/07/2020 5 - Intolerance WEED POLLEN-WESTERN RAGWEED 07/07/2020 14 - Other: See Comments WHEAT 07/07/2020 14 - Other: See Comments Comments: Wheat Pollen And Whole Grain Date Reviewed: 11/12/2023 Reviewed by: Pedro Pablo Parker DPM - Fully Assessed Reason for Visit: Post Op [174] Primary Visit Diagnosis:Post-operative state [Z98.890] Other Visit Diagnosis:Pain of right heel [M79.671] Order(s):XR FOOT GENERAL 3V AP/LAT/OBL RIGHT [[id number]] Order #: [id number] FUTURE Prescriptions as of 11/30/2023 - promethazine (PHENERGAN) 25 mg tablet Take 1 tablet by mouth every 6 hours as needed. - aspirin 325 mg tablet Take 1 tablet by mouth once daily. - docusate sodium (COLACE) 100 mg capsule Take 1 capsule by mouth two times a day. - ergocalciferol 50,000 unit capsule (VITAMIN D2, DRISDOL) Take 1 capsule by mouth one time a week. - celecoxib (CELEBREX) 200 mg capsule Take 200 mg by mouth once daily. - DULoxetine (CYMBALTA) 20 mg capsule Take 20 mg by mouth once daily. - pitavastatin (LIVALO) 4 mg tablet Take 1 tablet by mouth every afternoon. - zgwnljmhaqd-tomqjczcz-teowdrlc (TRELEGY ELLIPTA) 200-62.5-25 mcg inhalation powder - ezetimibe (ZETIA) 10 mg tablet Take 1 tablet by mouth every afternoon. - aspirin 81 mg cap - AIRSUPRA 90-80 mcg/actuation inhaler 2 Puffs every 6 hours as needed. - romosozumab-aqqg 105 mg/1.17 mL subcutaneous syringe - varenicline tartrate (CHANTIX ORAL) Take by mouth. - valsartan (DIOVAN) 40 mg tablet Take 1 tablet by mouth once daily. - azelastine (ASTELIN) 0.1% nasal spray once daily. - ascorbic acid/collagen hydr (COLLAGEN PLUS VITAMIN C ORAL) once daily. - C,E,zinc,copper 11/txucd6h/lut (OCUVITE ADULT 50 PLUS ORAL) once daily. [...] as needed. Problem List As Of Date 11/12/2023 Noted Resolved Essential hypertension [I10] 07/07/2020 Former smoker [Z87.891] 07/07/2020 Other hyperlipidemia [E78.49] 07/07/2020 Chronic diastolic heart failure (HCC) [I50.32] 07/25/2020 History of COVID-19 [Z86.16] 11/14/2020 Infrarenal abdominal aortic aneurysm (AAA) with*12/30/2022 COPD (chronic obstructive pulmonary disease) (H*09/08/2023 GERD (gastroesophageal reflux disease) [K21.9] 09/08/2023 09/08/2023 Electronic cigarette use [Z78.9] 09/08/2023 Other instructions from your clinician: Please call one of these phone numbers to make an appointment for your ultrasound appointment. [place]: [phone] [place], [facility], [address]: [phone] [place]: [phone] ext. [phone] Disposition: Return in about 4 weeks (around 12/10/2023). Follow-up and Disposition History for Encounter Date Provider Department Center 11/12/2023 [id number] PABLO PARKER [facility] Encounter Status:Closed by PEDRO PABLO PARKER on 11/30/23 PROGRESS Observed: 11/12/2023 1:10 PM Status: COMPLETED Source: [facility] ID: [id number] Author: LUCA CABRERA Tech Service: Radiology Author Type: Wireless Sales Representative Type: Progress Notes Filed: 11/12/2023 13:47 Note Text: Radiology Service Progress Note PATIENT NAME: Barrie Lawson DATE OF SERVICE: November 12, 2023 TIME: 1:46 PM PATIENT IDENTITY VERIFICATION COMPLETED USING TWO (2) IDENTIFIERS: Name and Date of confirmed by patient verbally. FALL SCREENING: Has the patient had 2 falls in the last year or 1 fall with injury or currently using an Ambulatory Assistive Device (Walker, Cane, Wheelchair, Crutches, etc.)? Yes, Patient High Risk for Falls What interventions were put in place to prevent falls during this visit? scooter PATIENT GENDER DATA: Female. status: : No status: NO. PATIENT RELEVANT IMPLANT DATA REVIEWED: Not Applicable PATIENT PRESENTS WITH AN IMPLANTABLE OR ATTACHED INFORMATION TECHNOLOGY SECURITY MANAGER: No RADIOLOGY DEPARTMENT: General X-ray: Exam(s) Completed: Lower Extremity X-Ray(s): Foot, Right and Wt. Bearing PERIPHERAL IV DATA: Not applicable SIGNED BY: Fernanda Stern November 12, 2023 1:46 PM PROGRESS Observed: 10/30/2023 10:42 AM Status: COMPLETED Source: [facility] ID: [id number] Author: MAXI THOMSON Tech Service: ? Author Type: Wireless Sales Representative Type: Progress Notes Filed: 10/30/2023 10:43 Note Text: PT ASSESSMENT - CASTING ROOM Barrie presents for cast removal and Application of boot. Applied patient provided Aircast boot to Right foot Patient has been instructed in Care and proper application of boot.. Fernanda Lee Beeper: 000 CNOV Observed: 10/30/2023 10:30 AM Status: COMPLETED Source: [facility] Office Visit (ORTHTW) BARRIE LAWSON ([id number]) 1960 F Date Time Provider Department 10/30/23 10:30 AM CAST TECH TWIN ORTHTW During your visit today, we recorded the following information about you: Maxi Thomson Tech 10/30/2023 10:43 AM Signed PT ASSESSMENT - CASTING ROOM Barrie presents for cast removal and Application of boot. Applied patient provided Aircast boot to Right foot Patient has been instructed in Care and proper application of boot.. Fernanda Lee Beeper: 000 Allergies As of Date: 10/30/2023 Noted Allergy Reaction SWISS COCKROACH ALLERGENIC EXT*07/07/2020 4 - Hives APPLES 07/07/2020 4 - Hives CARVEDILOL 09/08/2023 5 - Intolerance Comments: Sinus congestion DUST MITES 07/07/2020 4 - Hives FISH CONTAINING PRODUCTS 07/07/2020 14 - Other: See Comments Comments: Allergy to Cod/flounder/halibut GRASS POLLEN-RHONDA MOBLEY, STAND*07/07/2020 5 - Intolerance TREE POLLEN-SWISS ELM 07/07/2020 5 - Intolerance WEED POLLEN-KOCHIA (FIREBUSH) 07/07/2020 5 - Intolerance WEED POLLEN-WESTERN RAGWEED 07/07/2020 14 - Other: See Comments WHEAT 07/07/2020 14 - Other: See Comments Comments: Wheat Pollen And Whole Grain Date Reviewed: 10/16/2023 Reviewed by: Mamie Gamez RN - Fully Assessed Primary Visit Diagnosis:Acquired hallux valgus of right foot [M20.11] Prescriptions as of 10/30/2023 - promethazine (PHENERGAN) 25 mg tablet Take 1 tablet by mouth every 6 hours as needed. - aspirin 325 mg tablet Take 1 tablet by mouth once daily. - docusate sodium (COLACE) 100 mg capsule Take 1 capsule by mouth two times a day. - ergocalciferol 50,000 unit capsule (VITAMIN D2, DRISDOL) Take 1 capsule by mouth one time a week. - celecoxib (CELEBREX) 200 mg capsule Take 200 mg by mouth once daily. - DULoxetine (CYMBALTA) 20 mg capsule Take 20 mg by mouth once daily. - pitavastatin (LIVALO) 4 mg tablet Take 1 tablet by mouth every afternoon. - sfosxhrzxxk-iwtlculrv-xwztmaow (TRELEGY ELLIPTA) 200-62.5-25 mcg inhalation powder - ezetimibe (ZETIA) 10 mg tablet Take 1 tablet by mouth every afternoon. - aspirin 81 mg cap - AIRSUPRA 90-80 mcg/actuation inhaler 2 Puffs every 6 hours as needed. - romosozumab-aqqg 105 mg/1.17 mL subcutaneous syringe - varenicline tartrate (CHANTIX ORAL) Take by mouth. - valsartan (DIOVAN) 40 mg tablet Take 1 tablet by mouth once daily. - azelastine (ASTELIN) 0.1% nasal spray once daily. - ascorbic acid/collagen hydr (COLLAGEN PLUS VITAMIN C ORAL) once daily. - C,E,zinc,copper 11/rgcgv5p/lut (OCUVITE ADULT 50 PLUS ORAL) once daily. [...] as needed. Problem List As Of Date 10/30/2023 Noted Resolved Essential hypertension [I10] 07/07/2020 Former smoker [Z87.891] 07/07/2020 Other hyperlipidemia [E78.49] 07/07/2020 Chronic diastolic heart failure (HCC) [I50.32] 07/25/2020 History of COVID-19 [Z86.16] 11/14/2020 Infrarenal abdominal aortic aneurysm (AAA) with*12/30/2022 COPD (chronic obstructive pulmonary disease) (H*09/08/2023 GERD (gastroesophageal reflux disease) [K21.9] 09/08/2023 09/08/2023 Electronic cigarette use [Z78.9] 09/08/2023 Encounter Status:Closed by MAXI THOMSON on 10/30/23 ALLERGIES DATE TYPE / CODE NAME / CODE REACTION SEVERITY SOURCE 09/08/2023 DRUG INGREDI/715649 003(SNOMED CT) CARVEDILOL INTOLERANCE [facility] 07/07/2020 DRUG INGREDI/457977 003(SNOMED CT) SWISS COCKROACH ALLERGENIC EXTRACT HIVES [facility] 07/07/2020 Food/431055965 (SNOMED CT) APPLES HIVES [facility] 07/07/2020 Environ/165511 006(SNOMED CT) DUST MITES HIVES [facility] 07/07/2020 Drug Class/90750235 3(SNOMED CT) FISH CONTAINING PRODUCTS OTHER: SEE C [facility] 07/07/2020 DRUG INGREDI/750750 003(SNOMED CT) GRASS POLLEN-[place] BLUE, STANDARD INTOLERANCE [facility] 07/07/2020 DRUG INGREDI/592687 003(SNOMED CT) TREE POLLEN-SWISS ELM INTOLERANCE [facility] 07/07/2020 DRUG INGREDI/630169 003(SNOMED CT) WEED POLLEN-KOCHIA (FIREBUSH) INTOLERANCE [facility] 07/07/2020 DRUG INGREDI/185650 003(SNOMED CT) WEED POLLEN-WESTERN RAGWEED OTHER: SEE C [facility] 07/07/2020 DRUG INGREDI/146970 003(SNOMED CT) WHEAT OTHER: SEE C [facility] ENCOUNTERS ADMIT/DISCHARGE ACCOUNT NUMBER ADMITTING ENCOUNTER CLASS LOCATION SOURCE 09/23/2024 [id number] [facility]ulatory [facility] 05/06/2024/ 4 [id number] Amb[facility]XRUA [facility] 04/09/2024/ 4 [id number] [facility]:VSFV [facility] 04/09/2024/ 4 [id number] Amb[facility]:VLFV [facility] 02/02/2024/ 4 [id number] Ambulatory Building:[facility] OB [facility] 12/11/2023/ 4 [id number] Ambulatory [facility]TWPO [facility] 12/11/2023/ 4 [id number] Ambulatory [facility]:TWRG [facility] 11/12/2023/ 4 [id number] Amb[facility]:TWPO [facility] 11/12/2023/ 4 [id number] [facility]:TWRG [facility] 10/30/2023/ 4 [id number] [facility]TWOR [facility] PAYERS ENCOUNTER GUARANTOR PAYER SUBSCRIBER SOURCE 09/23/2024 Primary Insurance:MMO AdExtent[employer] PPOPolicy Number: [id number] Date:[id number] Name:Blu MADDEN: [id number] [place] [address] [facility] 05/06/2024 Primary Insurance:MMO [employer]Ext[employer] PPOPolicy Number: [id number] Date:3404-46-82Rshw Name:Blu MADDEN: [id number] [place] [place], [place] [address] [facility] 04/09/2024 Primary Insurance:MMO SUPERMED PPOPolicy Number: [id number] Date:5280-89-83Dphf Name:Blu AVILAOB: [id number] [place] [place], [place] [address] [facility] 04/09/2024 Primary Insurance:MMO SUPERMED PPOPolicy Number: [id number] Date:6558-66-53Hhru Name:Blu AVILAOB: [id number] [place] [address] [facility] 02/02/2024 BARRIE STEWARTSDOB: [id number] [place], [place] [address]Ckd: (HP) (WP) Primary Insurance:MEDICAL MUTUALPolicy Number: [id number] Date:2023-11-24 BARRIE STEWARTSDOB: [id number] [place] [address] [facility] 12/11/2023 Primary Insurance:MMO SUPERMED PPOPolicy Number: [id number] Date:0424-62-19Vpts Name:Blu AVILAOB: [id number] [place] [address] [facility] 12/11/2023 Primary Insurance:MMO SUPERMED PPOPolicy Number: [id number] Date:0710-68-90Nprk Name:Blu AVILAOB: [id number] [place] [address] [facility] 11/12/2023 Primary Insurance:MMO SUPERMED PPOPolicy Number: [id number] Date:2627-75-84Vfvj Name:lBu AVILAOB: [id number] [place] [address] [facility] 11/12/2023 Primary Insurance:MMO SUPERMED PPOPolicy Number: [id number] Date:2898-58-56Sxwi Name:Blu SOOD MARGARITAOB: [id number] [place] [address] [facility] 10/30/2023 Primary Insurance[place] Number: [id number] Date:2173-80-77Bjfj Name:Blu SOOD MARGARITAOB: [id number] [place] [address] [facility]
[2024-10-16 01:07] VITALS: BP 146/97; PULSE 96; TEMP 37.4; O2SAT 95; BMI 24.4
--- NOTE | 2024-10-16 02:15 | ED.EXTPRO1 ---
HPI - Extremity Problem General Chief complaint: Extremity Problem, Nontraumatic Stated complaint: LEFT FOOT HURTING ALL WEEK GOT PROGRESSIVELY WORSE Time Seen by Provider: 10/16/24 01:38 Source: patient Mode of arrival: walk-in Limitations: no limitations History of Present Illness HPI Narrative: cc -left foot pain About 1 week ago, the patient started to notice some pain in the dorsal surface of the left foot near the 4th and 5th metatarsals. She denied any injury. 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 She previously had plantar fasciitis saw chiropractor to get that improved. She also previously had surgery on her right foot -but is never experienced pain like this or in this location. No relief with intermittent use of ibuprofen and Tylenol. No skin changes or systemic symptoms such as fever or vomiting. Related Data Home Medications ?Medication ?Instructions ?Recorded ?Confirmed valsartan 40 mg tablet 40 mg PO DAILY 05/09/23 10/16/24 albuterol 90 mcg-budesonide 80 2 inh inhalation TID PRN shortness 10/16/24 10/16/24 mcg/actuation HFA aerosol inhaler of breath (Airsupra) ergocalciferol (vitamin D2) 1,250 1,250 mcg PO .weekly 10/16/24 10/16/24 mcg (50,000 unit) capsule ezetimibe 10 mg tablet 5 mg PO DAILY 10/16/24 10/16/24 famotidine 40 mg tablet 40 mg PO BEDTIME 10/16/24 10/16/24 pitavastatin calcium 4 mg tablet 4 mg PO DAILY 10/16/24 10/16/24 Previous Rx's ?Medication ?Instructions ?Recorded nabumetone 750 mg tablet 750 mg PO BID PRN pain #14 tabs 10/16/24 Allergies Allergy/AdvReac Type Severity Reaction Status Date / Time carvedilol (From Coreg) Allergy Severe Congested Verified 05/09/23 13:35 PFSH PFSH Social History Smoking status: Heavy tobacco smoker Little interest or pleasure in doing things: not at all Feeling down, depressed, or hopeless: not at all Exam Narrative Exam Narrative: Vital signs reviewed and nurse's notes. The patient is not hypoxic. General: Alert, no acute distress, patient resting comfortably Skin: warm, intact, no pallor noted Head: Normocephalic, atraumatic Eye: Normal conjunctiva Respiratory: No acute distress Musculoskeletal: No evidence of deformity to the L foot. There is no swelling. There is no ecchymosis. No erythema or warmth noted. DP and PT pulses are intact 2+. Normal sensation, normal capillary refill less than 2 seconds. There is no cyanosis or mottling noted. The patient has tenderness to the dorsal aspect of the distal left fourth metatarsal. No fifth metatarsal tenderness on the left foot. The patient was able to plantarflex and dorsiflex with some pain. Patient was able to extend leg off the cart without difficulty. No tenderness noted to the left midfoot, left ankle or proximal left fibular area. There is no pain with calcaneal squeeze, achilles tendon is intact and no defect is palpated. Neurological: alert and orient x4, normal sensory and motor observed. Psychiatric: Cooperative Constitutional Vital Signs, click to edit/add: Last Vital Signs Temp 99.3 F 10/16/24 01:07 Pulse 96 H 10/16/24 01:07 Resp 18 10/16/24 01:07 BP 146/97 H 10/16/24 01:07 Pulse Ox 95 10/16/24 01:07 Course Vital Signs Vital signs: Vital Signs Temperature 99.3 F 10/16/24 01:07 Pulse Rate 96 H 10/16/24 01:07 Respiratory Rate 18 10/16/24 01:07 Blood Pressure 146/97 H 10/16/24 01:07 Pulse Oximetry 95 10/16/24 01:07 Temperature 99.3 F 10/16/24 01:07 Pulse Rate 96 H 10/16/24 01:07 Respiratory Rate 18 10/16/24 01:07 Blood Pressure 146/97 H 10/16/24 01:07 Pulse Oximetry 95 10/16/24 01:07 Discharge Plan Discharge Chief Complaint: Extremity Problem, Nontraumatic Clinical Impression: Acute pain of left foot Patient Disposition: Home, Self-Care Time of Disposition Decision: 02:18 Prescriptions / Home Meds: New nabumetone 750 mg tablet 750 mg PO BID PRN (Reason: pain) Qty: 14 0RF No Action valsartan 40 mg tablet 40 mg PO DAILY Airsupra 90-80 mcg/actuation HFA aerosol inhaler 2 inh INHALATION TID PRN (Reason: shortness of breath) ergocalciferol (vitamin D2) 1,250 mcg (50,000 unit) capsule 1,250 mcg PO .weekly ezetimibe 10 mg tablet 5 mg PO DAILY famotidine 40 mg tablet 40 mg PO BEDTIME pitavastatin calcium 4 mg tablet 4 mg PO DAILY Print Language: Kinyarwanda Instructions: Metatarsalgia (DC) Referrals: John Santos DPM [Physician, Podiatry] - 1 week
[2024-10-16] MEDS: KETOROLAC TROMETHAMINE 10 MG TABLET PO (02:36)
[2024-10-16 02:41] VITALS: BP 164/90; PULSE 95; O2SAT 99
== END 2024-10-16 02:44 | disposition home or self-care (01) ==
PROVIDERS: Emergency Provider Emergency Medicine; PCP Internal Medicine
DX: M79.672 Pain in left foot (principal); M19.072 Primary osteoarthritis, left ankle and foot; M20.22 Hallux rigidus, left foot; M77.32 Calcaneal spur, left foot
CPT/HCPCS: 73630; 99283